=== PATIENT | female | born 1975 | race Caucasian/White ===

== ENCOUNTER 2019-02-20 12:48 | Emergency (ER) | payer OTHER, SELFPAY ==
[2019-02-20 12:49] VITALS: BP 107/90; PULSE 83; RESP 16; TEMP 37.2; O2SAT 100; BMI 24.6
--- NOTE | 2019-02-20 13:23 | ED.VISSUMM ---
- ER Visit Summary Date of Service: 02/20/19 Chief Complaint: Nausea, vomiting and diarrhea History of Present Illness: The patient is a 43 F no significant past medical history. Prior cholecystectomy. Patient states to start feeling poorly about 8 PM last night. By midnight she started having nausea, vomiting and diarrhea x1. No dysuria. Subjective fever and chills. Diffuse body aches. No one else at home is ill. Only crampy abdominal discomfort. Physical Examination: Middle-aged female. Vital signs are stable. She is afebrile. She does not look septic or toxic. HEENT exam unremarkable other than dry mucous membranes. Neck nontender no lymphadenopathy. Lungs clear to auscultation bilaterally. Heart regular rhythm no murmur. Abdomen soft nontender normal bowel sounds no peritoneal signs. No signs of obstruction. No distention. Patient moving all 4 extremities. Neurovascular intact. No edema. Back nontender. Skin normal other than pale. Neurologically she is awake alert with no focal motor deficits. Test Results: None Emergency Department Course and Treatment: Patient has a viral gastroenteritis with dehydration. Treated with IV fluids x2 L and IV Zofran. P.o. fluid challenge. On repeat exam she feels and looks much better. Treatment Plan: Zofran as needed for nausea. Fluids and rest. Increase diet as tolerated. Disposition: Discharge Impression: Acute viral gastroenteritis with dehydration This note was generated with [employer] ([employer]) dictation software. It may contain incorrect words, spelling, and punctuation that were not noted in review of the chart prior to signing ED Disposition - Plan for ED Patient: Referrals: Marcus Pearce III, MD [Primary Care Provider] -
--- NOTE | 2019-02-20 13:25 | ED.DEP ---
ED Disposition - Plan for ED Patient: Disposition: Home or Assisted Living Instructions: GASTROENTERITIS, Viral (6y-Adult), DEHYDRATION (6y-Adult) Prescriptions: Ondansetron [Zofran Odt] 4 mg PO Q8H PRN PRN #10 tab PRN Reason: Nausea Prescription Printed Referrals: Marcus Pearce III, MD [Primary Care Provider] - 3-5 Days if not improving Additional Instructions: Plenty of fluids and rest. Increase diet slowly as tolerated. Zofran as needed for nausea. Follow-up with not improving return if feeling worse.
[2019-02-20] MEDS: Ondansetron 4 MG/2 ML Vial IV (13:39)
[2019-02-20] MEDS: 0.9% Normal Saline 1,000 ML 1000 ML IV ×2 (13:40→14:41)
[2019-02-20] MEDS: Acetaminophen 500 MG Tablet 1000 MG PO (14:57)
[2019-02-20 15:02] VITALS: RESP 18
[2019-02-20 15:31] VITALS: BP 97/57; PULSE 78; RESP 16; O2SAT 100
--- NOTE | 2019-02-20 15:32 | ED.RN ---
IV DC'ED, CATHETER INTACT, SMALL GAUZE DRESSING PLACED. DISCHARGE INSTRUCTIONS GIVEN TO AND REVIEWED WITH PATIENT, PATIENT DENIES QUESTIONS OR CONCERNS AND VOICES UNDERSTANDING OF DISCHARGE INSTRUCTIONS. PT AMBULATES OUT OF ROOM WITHOUT DIFFICULTY.
== END 2019-02-20 15:32 | disposition home or self-care (01) ==
PROVIDERS: Emergency Provider Emergency Medicine; Family Provider Family Medicine; PCP Family Medicine
DX: A08.4 Viral intestinal infection, unspecified (principal); E86.0 Dehydration
CPT/HCPCS: 96361; 96374; 99284; J7030; A4216; J2405

== ENCOUNTER → 2020-04-02 | Outpatient (CLI) | payer OTHER, SELFPAY ==
--- NOTE | 2020-04-02 | BRBX_PTH ---
PATIENT: SANGEETHA PATEL [facility] U#:[id number] AGE/SX: 45/F ROOM: RE04/02/[address]: Dr. Gregor Pearce MD : 1975 BED: DIS: 04/02/2020 SPEC #: [id number] RECD: 04/02/20 15:50 STATUS: CATINA REJaz #: [id number] DUNCAN: 04/02/20 00:[address]: Gregor Pearce DEPT: SURGICAL PATHOLOGY RECD BY: Pedrito Mantilla ENTERED: 04/03/20 07:17 SP TYPE: BREAST BX OTHR DR: Dr. Marcus Pearce III, MD Tissues: Right breast, NOS Procedures: Surgery Specimen Level IV HEADER OPERATION: Right breast biopsy PRE-OP DIAGNOSIS: Abnormal breast ultrasound TISSUE SUBMITTED: Right breast biopsy MICROSCOPIC DIAGNOSIS Right breast, core biopsy: Fragments of benign breast tissue with focal changes suggestive of fibroadenoma. Negative for atypia or malignancy. See comment. CISCO:tatum 04/04/2020 COMMENT Correlation with clinical, radiologic findings and appropriate follow up are necessary. MICROSCOPIC DESCRIPTION Slides are reviewed. GROSS DESCRIPTION Received in fixative is one container labeled with the patient name and designated right breast. The specimen consists of multiple elongated fragments of christopher-yellow fibroadipose tissue that in aggregate measure 1 x 0.3 x 0.1 cm. The entire specimen is submitted in one cassette. / CISCO:tatum 04/03/20 TC:5 CPT: 06745
[2020-04-02 14:51] VITALS: BMI 24.2
== END | disposition home or self-care (01) ==
LOC: LABSPEC 16:47
PROVIDERS: PCP Family Medicine; Visit Provider Surgery
DX: R92.8 Other abnormal and inconclusive findings on diagnostic imaging of breast (principal)
CPT/HCPCS: 88305

== ENCOUNTER 2023-03-27 09:21 | Day surgery (SDC) | payer BC, SELFPAY ==
--- NOTE | 2023-03-24 14:40 | PCM.HP.BLA ---
History and Physical Date of Admission: 03/27/23 HPI: The patient is a 48 year old female presenting for pre-operative visit. She is scheduled for hysteroscopy with endometrial ablation, for AUB on 03/24/23. Procedure discussed along with risks, benefits and complications. Other alternatives discussed for management. Consent form signed? Yes. ? ? PAST MEDICAL HISTORY PAST MEDICAL HISTORY Diagnosis Date ? Abnormal Pap smear of cervix ? ? Cholecystitis ? ? Cholelithiasis ? ? Dysthymic disorder ? ? Depression (non-psychotic) ? Hyperlipidemia 04/14/2012 ? ? PAST SURGICAL HISTORY PAST SURGICAL HISTORY Procedure Laterality Date ? LAPS SURG CHOLECYSTECTOMY W/CHOLANGIOGRAPHY ? 05/16/2009 ? PAST SURGICAL HISTORY OF ? ? ? RIGHT WRIST SURGERY X 2 ? TONSILLECTOMY PRIMARY/SECONDARY <AGE 13 ? ? ? Tonsillectomy ? ? ? CURRENT MEDICATIONS Current Outpatient Medications Medication Sig Dispense Refill ? ascorbic acid/collagen hydr (COLLAGEN SKIN RENEWAL ORAL) Take by mouth. ? ? ? BIOTIN ORAL Take by mouth once daily. ? ? ? docosahexaenoic acid/epa (FISH OIL ORAL) Take by mouth once daily. ? ? ? mv,Ca,min/iron/FA/guarana/caff (ONE-A-DAY WOMEN'S ACTIVE ORAL) Take by mouth. ? ? ? diphenhydramine HCl (BENADRYL ORAL) Take by mouth. ? ? ? acetaminophen (TYLENOL) 325 mg tablet Take 650 mg by mouth every 6 hours as needed. (Patient not taking: Reported on 01/27/2023) ? ? ? No current facility-administered medications for this visit. ? ? ALLERGIES: Penicillins ? PERSONAL HISTORY: SOCIAL HISTORY Social History ? Tobacco Use ? Smoking status: Never ? Smokeless tobacco: Never Vaping Use ? Vaping Use: Never used Substance Use Topics ? Alcohol use: Yes ? ? Comment: wine ? Drug use: No ? FAMILY HISTORY: FAMILY HISTORY FAMILY HISTORY Problem Relation Age of Onset ? Hypertension Mother ? ? Lipids Mother ? ? other (ADDISONS DISEASE) Mother ? ? Ischemic Heart Disease Mother ? ? Lipids Father ? ? Prostate Cancer Father ? ? Thyroid Brother ? ? Also Down's Syndrome ? other (pace maker) Brother ? ? Stroke Brother ? ? Lipids Brother ? ? Cancer Maternal Grandmother ? ? COPD Maternal Grandfather ? ? Breast Cancer Maternal Aunt ? ? ? REVIEW OF SYMPTOMS: GENERAL: denies fevers or chills ENDOCRINOLOGY: has not been on steroids Cardiology : denies palpitations or chest pain Respiratory: denies SOB or cough Hematology: denies history of prolonged bleeding or easy bruising or VTE Allergy: Denies history of personal or family history of allergy to anesthesia ? PHYSICAL EXAMINATION: ? VITALS: Last menstrual period 02/21/2023. ? GENERAL: The patient is well nourished, well hydrated in no acute distress. , The patient is oriented to time, place, and person. NECK: Supple. No lynphadenopathy, normal thyroid, no thyromegaly. LUNGS: Clear to auscultation bilaterally. no wheezes, rhonchi or rales HEART: Regular rate and rhythm, Normal heart sounds, and No murmurs or gallops ? IMPRESSION: menorrhagia ? ? PLAN: The risks/benefits/alternatives and personal involved for the planned hysteroscopy with endometrial ablation were reviewed with the patient. Her questions were answered to her satisfaction and she desires to proceed. Consent was signed. I reviewed with her postop instructions and expectations. ? ? I have reviewed and updated past medical and surgical history, medications and allergies Assessment & Plan Assessment/Plan (1) Menorrhagia:
--- OUTSIDE RECORDS SUMMARY | 2023-03-27 09:44 | XMS RPT_ITS | CCD ---
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 Name Role Phone Chuy Ramos MD Primary Care Provider WINSTON SANDERSON Attending Unavailable CHUY RAMOS Primary Care Unavailable CHUY RAMOS Primary Care Unavailable WINSTON SANDERSON Attending Unavailable WINSTON SANDERSON Referring Unavailable CHUY RAMOS Primary Care Unavailable WINSTON SANDERSON Referring Unavailable CHUY RAMOS Primary Care Unavailable WINSTON SANDERSON Attending Unavailable Allergies Allergy Classification Reported Allergen(s) Allergy Type Date of Onset Reaction(s) Facility (4 sources) Penicillins; Translations: [PENICILLINS] Propensity to adverse reactions 6 Vomiting [facility] Work Phone: (9 sources) Seasonal allergy; Translations: [SEASONAL ALLERGIES] Allergy to substance 0 Other: See Comments [facility] (6 sources) Penicillins Propensity to adverse reactions 6 Vomiting [facility] Work Phone: Medications Completed/Discontinued Medications Medication Drug Class(es) Dates Sig (Normalized) Sig (Original) acetaminophen 325 mg oral tablet (9 sources) take 2 tablets by mouth every six hours as needed acetaminophen (TYLENOL) 325 mg tablet Take 650 mg by mouth every 6 hours as needed. 0 Active Problems Active Problems Problem Classification Problem Date Documented Da te Episodic/Chronic Disorders of lipid metabolism (10 sources) Hyperlipidemia; Translations: [Hyperlipidemia, unspecified] Onset: 07-23-2016 07-23-2016 Chronic Menstrual disorders (2 sources) Menorrhagia; Translations: [Excessive and frequent menstruation with regular cycle] Onset: 03-03-2023 01-27-2023 Chronic Other screening for suspected conditions (not mental disorders or infectious disease) (6 sources) Mammography abnormal; Translations: [Other abnormal and inconclusive findings on diagnostic imaging of breast] Episodic Other upper respiratory disease (9 sources) Allergic rhinitis; Translations: [Allergic rhinitis, unspecified] Onset: 08-19-2008 08-19-2008 Chronic Past or Other Problems Problem Classification Problem Date Documented Date Episodic/Chronic Residual codes; unclassified (9 sources) Abnormal cytology findings; Translations: [LSIL (low grade squamous intraepithelial lesion) on Pap smear] Onset: 03-26-2012 03-11-2021 Episodic Screening and history of mental health and substance abuse codes (9 sources) H/O: depression; Translations: [Personal history of other mental and behavioral disorders] Onset: 08-09-2015 03-11-2021 Episodic Results Test Name Value Interpretation Reference Range Facil ity Vital Signs Date Time Vital Sign Value Performing Clinician Faci lity 01-27-2023 16:06-0500 Body height 153 cm Winston Sanderson MD Work Phone: [facility] 01-27-2023 16:06-0500 Body weight 54.43 kg Winston Sanderson MD Work Phone: [facility] 01-27-2023 16:06-0500 Diastolic blood pressure 68 mm[Hg] Winston Sanderson MD Work Phone: [facility] 01-27-2023 16:06-0500 Systolic blood pressure 104 mm[Hg] Winston Sanderson MD Work Phone: [facility] 11-25-2021 09:17-0400 Body height 153 cm Irene Beltrán PA-C Work Phone: [facility] 11-25-2021 09:17-0400 Body temperature 97.59 [degF] Irene Beltrán PA-C Work Phone: [facility] 11-25-2021 09:17-0400 Body weight 53.52 kg Irene Beltrán PA-C Work Phone: [facility] 11-25-2021 09:17-0400 Diastolic blood pressure 80 mm[Hg] Irene Beltrán PA-C Work Phone: [facility] 11-25-2021 09:17-0400 Heart rate 64 /min Irene Beltrán PA-C Work Phone: [facility] 11-25-2021 09:17-0400 Respiratory rate 16 /min Irene Beltrán PA-C Work Phone: [facility] 11-25-2021 09:17-0400 Systolic blood pressure 102 mm[Hg] Irene Beltrán PA-C Work Phone: [facility] 06-05-2021 14:24-0400 Body height 152.4 cm Winston Sanderson MD Work Phone: [facility] 06-05-2021 14:24-0400 Body weight 53.52 kg Winston Sanderson MD Work Phone: [facility] 06-05-2021 14:24-0400 Diastolic blood pressure 74 mm[Hg] Winston Sanderson MD Work Phone: [facility] 06-05-2021 14:24-0400 Systolic blood pressure 118 mm[Hg] Winston Sanderson MD Work Phone: [facility] Encounters Encounter Date Encounter Type Care Provider Facility Start: 03-24-2023 ambulatory WINSTON SANDERSON [facility] ity:[facility] Start: 03-03-2023 Telephone encounter Winston Sanderson MD Work Phone: OB/Gynecology Procedures Date Procedure Procedure Detail Performing Clinician Start: 11-25-2021 Adult depression scr eening assessment Irene Beltrán PA-C Work Phone: Start: 11-25-2021 Lipid 1996 panel - S bear or Plasma Winston Sanderson MD Work Phone: Start: 06-04-2021 Us breast uni real t alondra with image limited Marco Antonio Cheung APRN.[facility]FFER Work Phone: Start: 04-25-2021 Mammography Us 1 Work Phone: Start: 11-12-2020 Adult depression scr eening assessment Us 1 Work Phone: Plan of Treatment Date Care Activity Detail Author Start: 11-25-2026 Lipid 1996 panel - S bear or Plasma Lipid Screening [facility] Start: 11-25-2026 Lipid panel Lipid Screening [facility] Start: 11-25-2026 LIPID SCREEN LIPID SCREEN [facility] Start: 01-03-2026 Urine microalbumin profile [facility] Start: 02-02-2025 HPV TESTING HPV TESTING [facility] Start: 02-02-2025 PAP TESTING PAP TESTING [facility] Start: 02-02-2025 Screening for malign ant neoplasm of cervix [facility] Start: 11-25-2024 DIABETES SCREEN [facility] Start: 11-25-2024 Diabetes Screening Diabetes Screenin g [facility] Start: 03-24-2024 LIPID SCREEN LIPID SCREEN [facility] Start: 11-25-2022 Adult depression scr eening assessment DEPRESSION SCREENING [facility] Start: 11-25-2022 HEPATITIS C SCREENING HEPATITIS C [facility] Immunizations Immunization Date Immunization Notes Care Provider Fa ayanna 11-09-2020 COVID-19 vaccine (ADILSON) Us 1 Work Phone: [facility] Work Phone: 02-03-2017 influenza, injectabl e, quadrivalent, contains preservative Us 1 Work Phone: [facility] 02-03-2017 influenza virus vaccine, unspecified formulation Winston Sanderson MD Work Phone: [facility] 01-04-2016 tetanus toxoid, redu christine diphtheria toxoid, and acellular pertussis vaccine, adsorbed Us 1 Work Phone: [facility] 12-03-2015 influenza, injectabl e, quadrivalent, contains preservative Us 1 Work Phone: [facility] Work Phone: 01-18-2015 influenza, injectabl e, quadrivalent, contains preservative Us 1 Work Phone: [facility] Work Phone: 06-21-2013 tetanus toxoid, redu christine diphtheria toxoid, and acellular pertussis vaccine, adsorbed Us 1 Work Phone: [facility] 02-02-2013 influenza virus vaccine, unspecified formulation Us 1 Work Phone: [facility] Work Phone: 02-18-2012 influenza virus vaccine, unspecified formulation Us 1 Work Phone: [facility] 02-05-2010 influenza virus vaccine, live, attenuated, for intranasal use Us 1 Work Phone: [facility] 01-12-2009 influenza virus vaccine, unspecified formulation Us 1 Work Phone: [facility] Work Phone: Payers Date Payer Category Payer Unknown [employer] PPO OOS [id number] 2022-Present [phone] [address] [place] [address] PPO [id number] 2022 Unknown [id number] 2020 Private Health Insurance [employer] POS [id number] 2020-Present [phone] [address] [address] [place] [address] POS [id number] 2020 Private Health Insurance [employer] POS [id number] 2020-Present [phone] [address] [address] [place] [address] POS [id number] Social History Date Type Detail Facility Start: 11-25-2021 Tobacco smoking stat us ARIS Never smoked tobacco [facility] Start: 11-12-2020 End: 03-03-2023 Alcohol intake Current drinker of alcohol (finding) [facility] Start: 02-03-2020 History SDOH Alcohol Comment wine [facility] Start: 1975 Sex Assigned At Not on file C [facility] Start: 05-25-2021 End: 11-25-2021 Exposure to SARS-CoV-2 (event) Not sure [facility] Start: 11-25-2021 Tobacco use and exposure Smoke less tobacco non-user [facility] Start: 11-25-2021 End: 01-27-2023 History of Social function [facility] Start: 11-25-2021 End: 01-27-2023 Tobacco use panel [facility] Adult Depression Scr eening Assessment 0 [facility] Clinical Notes 08-23-2015 to 03-24-2023 Telephone Encounter - Kathy Bello RN - 03/04/2023 11:27 AM ESTTelephone Encounter - Malissa Diaz LPN - 03/03/2023 3:40 PM Winston Newton MD - 01/27/2023 4:01 PM EST Note Date & Type Note Facility 03-24-2023 Note HNO ID: [id number] Author: WINSTON SANDERSON MD Service: ? Author Type: Physician Type: Progress Notes Filed: 03/24/2023 14:35 Note Text: Amanda Melgar is a 48 year old female who presents for problem visit for follow up heavy bleeding . HPI: 48-year-old female who is finished childbearing presents today for follow-up heavy menstrual bleeding. Her menses are regular but very heavy. It is a quality of life issue for her. She desires definitive therapy in the form of an endometrial ablation. 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 Comments: Sexual Activity: Yes; Male; hsuband had vasectomy Contraception: Vasectomy PAST MEDICAL HISTORY Diagnosis Date Abnormal Pap smear of cervix Cholecystitis Cholelithiasis Dysthymic disorder Depression (non-psychotic) Hyperlipidemia 04/14/2012 PAST SURGICAL HISTORY Procedure Laterality Date LAPS SURG CHOLECYSTECTOMY W/CHOLANGIOGRAPHY 05/16/2009 PAST SURGICAL HISTORY OF RIGHT WRIST SURGERY X 2 TONSILLECTOMY PRIMARY/SECONDARY Tonsillectomy FAMILY HISTORY Problem Relation Age of Onset Hypertension Mother Lipids Mother other (ADDISONS DISEASE) Mother Ischemic Heart Disease Mother Lipids Father Prostate Cancer Father Thyroid Brother Also Down's Syndrome other (pace maker) Brother Stroke Brother Lipids Brother Cancer Maternal Grandmother COPD Maternal Grandfather Breast Cancer Maternal Aunt Social History Tobacco Use Smoking status: Never Smokeless tobacco: Never Vaping Use Vaping Use: Never used Substance Use Topics Alcohol use: Yes Comment: wine Drug use: No Current Outpatient Medications Medication Sig ascorbic acid/collagen hydr (COLLAGEN SKIN RENEWAL ORAL) Take by mouth. BIOTIN ORAL Take by mouth once daily. docosahexaenoic acid/epa (FISH OIL ORAL) Take by mouth once daily. mv,Ca,min/iron/FA/guarana/caff (ONE-A-DAY WOMEN'S ACTIVE ORAL) Take by mouth. diphenhydramine HCl (BENADRYL ORAL) Take by mouth. acetaminophen (TYLENOL) 325 mg tablet Take 650 mg by mouth every 6 hours as needed. (Patient not taking: Reported on 01/27/2023) No current facility-administered medications for this visit. Allergies As of Date: 03/24/2023 Allergen Noted Reaction PENICILLINS 02/26/2006 Vomiting Fully Assessed 03/24/2023 Allergies and current medication updated:Yes EXAM: BP 106/64 Ht 5' .25 (1.53m) Wt 120 lb (54.4kg) LMP 03/12/2023 BMI 23.25 kg/(m2). GENERAL: pleasant, female in no apparent distress Endometrial biopsy on 03/03/2023 shows proliferative endometrium. Pelvic ultrasound done 03/03/2023 shows 8.7 x 4.8 x 6.0 retroverted uterus. No fibroids or obvious adenomyosis. Overall normal uterine contour and normal ovaries. ASSESSMENT AND PLAN: Menorrhagia Negative workup. Risk benefits and alternatives to hysteroscopy with endometrial ablation were discussed with patient her questions were answered to her satisfaction she desires to proceed she understands contraindication to any future childbearing. Winston Sanderson MD Medical Decision Making: Problems: Low: Stable chronic illness Data: Unique test result(s) reviewed: 2 Risk: Moderate: Moderate risk from testing/treatment Medical Decision Making Level: 3 - Low [facility] 03-04-2023 Miscellaneous Notes Patient wants 03/27/23. Pre op scheduled for 03/24/23. Kathy Bello RN Left message to call office. Next available surgery dates with Dr. Sanderson are 03/27/23 and 04/10/23. Patient will need a pre-operative appointment scheduled documented in this encounter [facility] 03-03-2023 Note HNO ID: [id number] Author: Winston Sanderson MD Service: ? Author Type: Physician Type: Progress Notes Filed: 03/03/2023 11:16 AM Note Text: Amanda is a 47 year old who presents today for an endometrial biopsy for abnormal uterine bleeding. test: negative UNIVERSAL PROTOCOL / SAFETY CHECKLIST Procedure to be Performed: EMB Sign In: A Moment of CARE was completed. Personnel directly involved with the procedure wore the appropriate PPE (Personal Protective Equipment). Patient/Surrogate Stated/Verified: PATIENT VERIFIED(optional for EMERGENT procedures): Patient name, Date of , Relevant allergies, and The intended procedure Time Out Communication: Intended patient and procedure match the source documents. Consent documented and matches the intended procedure. No implant(s) inserted. Sign Out: SIGN OUT (optional for EMERGENT procedures): All specimen containers correctly labeled. All instruments, equipment, possible retained foreign bodies accounted for. Post-procedure follow-up management communicated and Plan of Care Visit completed when applicable. Winston Sanderson M.D. PROCEDURE: EXTERNAL GENITALIA: Normal in appearance without lesions VAGINA: Normal in appearance without lesions BIOPSY: Speculum placed into the vagina with excellent visualization of the cervix. Cervix cleaned with betadine. Anterior lip of cervix grasped with single toothed tenaculum. Uterus sounded to 8 cm. Pipelle inserted into the uterus without difficulty and endometrial biopsy obtained. Specimen labeled and sent to pathology. Procedure Summary: Patient tolerated procedure well. ASSESSMENT: abnormal uterine bleeding PLAN: Specimens labeled and sent to Pathology. Will notify patient of results in 1-2 weeks. Post-procedure instructions reviewed and written material given to the patient. Desires endometrial ablation if US and EMB ok Winston Sanderson MD [facility] 03-03-2023 Note HNO ID: [id number] Author: Taylor Clancy RDMS Service: ? 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 FALL SCREENING: Has the patient had 2 falls in the last year or 1 fall with injury or currently using an Ambulatory Assistive Device (Walker, Cane, Wheelchair, Crutches, etc.)? No PATIENT GENDER DATA: Female. status: : No status: NO. PATIENT RELEVANT IMPLANT DATA REVIEWED: Not Applicable RADIOLOGY DEPARTMENT: Ultrasound PERIPHERAL IV DATA: Not applicable SIGNED BY: Taylor Clancy RDMS March 03, 2023 2:21 PM [facility] 01-28-2023 Note Patient Outreach (IN TMMN) AMANDA PATEL ([id number]) 1975 F Date Time Provider Department 01/28/23 CHUY RAMOS During your visit today, we recorded the following information about you: Allergies As of Date: 01/28/2023 Noted Allergy Reaction PENICILLINS 02/26/2006 11 - Vomiting Comments: CHILDHOOD REACTION SEASONAL ALLERGIES 01/30/2010 14 - Other: See Comments Comments: dust mites, trees Date Reviewed: 01/27/2023 Reviewed by: Winston Sanderson MD - Fully Assessed Visit Diagnosis:Encounter for screening mammogram for breast cancer [Z12.31] Order(s):[facility] [[id number]] Order #: [id number] FUTURE Prescriptions as of 02/02/2023 - ascorbic acid/collagen hydr (COLLAGEN SKIN RENEWAL ORAL) Take by mouth. - BIOTIN ORAL Take by mouth once daily. - docosahexaenoic acid/epa (FISH OIL ORAL) Take by mouth once daily. - mv,Ca,min/iron/FA/guarana/caff (ONE-A-DAY WOMEN'S ACTIVE ORAL) Take by mouth. - diphenhydramine HCl (BENADRYL ORAL) Take by mouth. - acetaminophen (TYLENOL) 325 mg tablet Take 650 mg by mouth every 6 hours as needed. Problem List As Of Date 01/28/2023 Noted Resolved ALLERGIC RHINITIS NOS [J30.9] 08/19/2008 Choledocholithiasis with chronic cholecystitis *05/11/2009 03/03/2013 Generalized pruritus [L29.9] 02/18/2012 03/03/2013 LSIL (low grade squamous intraepithelial lesion*03/26/2012 Advanced maternal age (AMA) in [IMO00*11/30/2012 08/18/2013 with uncertain dates [Z34.90] 11/30/2012 12/24/2012 History of shoulder dystocia in prior *11/30/2012 08/18/2013 Family history of Down syndrome [Z82.79] 11/30/2012 08/18/2013 Supervision of other normal [Z34.80] 12/24/2012 08/18/2013 Multigravida of advanced maternal age in first *08/09/2015 04/28/2016 History of shoulder dystocia in prior *08/09/2015 04/28/2016 History of depression [Z86.59] 08/09/2015 Supervision of other high risk pregnancies, fir*08/23/2015 04/28/2016 Hyperlipidemia LDL goal <130 [E78.5] 07/23/2016 Well adult exam [Z00.00] 11/25/2021 Encounter Status:Closed 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 Author Type: Physician Type: Progress Notes Filed: 01/27/2023 4:26 PM Note Text: Amanda is a 47 year old who presents for an annual gynecologic exam with complaints, heavy menses . C/o fatigue especially around menses. Sleeps 7-8 hours. Feels rested when she wakes up then gets tired easily. Menses: cycles every 27-29 days and 5-7 days of flow. 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: Sexual Activity: Yes; Male; hsuband had vasectomy Contraception: Vasectomy PAST MEDICAL HISTORY Diagnosis Date Abnormal Pap smear of cervix Cholecystitis Cholelithiasis Dysthymic disorder Depression (non-psychotic) Hyperlipidemia 04/14/2012 PAST SURGICAL HISTORY Procedure Laterality Date LAPS SURG CHOLECYSTECTOMY W/CHOLANGIOGRAPHY 05/16/2009 PAST SURGICAL HISTORY OF RIGHT WRIST SURGERY X 2 TONSILLECTOMY PRIMARY/SECONDARY Tonsillectomy FAMILY HISTORY Problem Relation Age of Onset Hypertension Mother Lipids Mother other (ADDISONS DISEASE) Mother Ischemic Heart Disease Mother Lipids Father Prostate Cancer Father Thyroid Brother Also Down's Syndrome other (pace maker) Brother Stroke Brother Lipids Brother Cancer Maternal Grandmother COPD Maternal Grandfather Breast Cancer Maternal Aunt SOCIAL HISTORY Social History Tobacco Use Smoking status: Never Smokeless tobacco: Never Vaping Use Vaping Use: Never used Substance Use Topics Alcohol use: Yes Comment: wine Drug use: No REVIEW OF SYSTEMS Abdomen: No abdominal pain, nausea, vomiting, diarrhea, or constipation. No bloating, early satiety, indigestion, or increased flatulence. Bladder: No dysuria, gross hematuria, urinary frequency, urinary urgency, or incontinence. Breast: No breast lumps, nipple d/c, overlying skin changes, redness or skin retraction. Allergies and current medication updated:Yes EXAM: BP 104/68 Ht 5' .25 (1.53m) Wt 120 lb (54.4kg) LMP 01/01/2023 BMI 23.25 kg/(m2). GENERAL: pleasant, female in no apparent distress HEENT: Normocephalic, atraumatic, mucus membranes moist, and no lesions NECK: Supple, full range of motion, no adenopathy, and thyroid normal DERMATOLOGY: Normal, without lesions, non-icteric, and non-hirsute BREAST: soft, non-tender, symmetric, no dominant mass, normal nipple-areolar complex, no lymphadenopathy, and no nipple discharge CHEST: Normal inspiratory effort and Regular rate and rhythm ABDOMEN: soft, non-tender, and no masses PELVIC: external genitalia normal, normal Bartholin's glands, urethra, Bee's glands, no vulvar lesions, no cervical lesions, good vaginal support, physiologic discharge present, normal appearing perineal body and perianal region BIMANUAL: uterus normal size, shape and consistency, no adnexal masses, and non-tender RECTOVAGINAL: deferred. NEURO: alert and oriented x3,exam grossly non-focal EXTREMITIES: normal ASSESSMENT/PLAN: 1) Health maintenance: Pap/HPV up to date. Mammogram up to date . 2) Contraception: vasectomy. Contraceptive options reviewed and information provided. 3) STD screening: Declined STD check. 4) Follow up one year or sooner as needed heavy menses- p tiffany US and EMB Winston Sanderson MD [facility] 01-27-2023 History of Presen t illness Narrative Amanda is a 47 year old who presents for an annual gynecologic exam with complaints, heavy menses . C/o fatigue especially around menses. Sleeps 7-8 hours. Feels rested when she wakes up then gets tired easily. Menses: cycles every 27-29 days and 5-7 days of flow. 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: Sexual Activity: Yes; Male; hsuband had vasectomy Contraception: Vasectomy PAST MEDICAL HISTORY Diagnosis Date Abnormal Pap smear of cervix Cholecystitis Cholelithiasis Dysthymic disorder Depression (non-psychotic) Hyperlipidemia 04/14/2012 PAST SURGICAL HISTORY Procedure Laterality Date LAPS SURG CHOLECYSTECTOMY W/CHOLANGIOGRAPHY 05/16/2009 PAST SURGICAL HISTORY OF RIGHT WRIST SURGERY X 2 TONSILLECTOMY PRIMARY/SECONDARY <AGE 13 Tonsillectomy FAMILY HISTORY Problem Relation Age of Onset Hypertension Mother Lipids Mother other (ADDISONS DISEASE) Mother Ischemic Heart Disease Mother Lipids Father Prostate Cancer Father Thyroid Brother Also Down's Syndrome other (pace maker) Brother Stroke Brother Lipids Brother Cancer Maternal Grandmother COPD Maternal Grandfather Breast Cancer Maternal Aunt SOCIAL HISTORY Social History Tobacco Use Smoking status: Never Smokeless tobacco: Never Vaping Use Vaping Use: Never used Substance Use Topics Alcohol use: Yes Comment: wine Drug use: No REVIEW OF SYSTEMS Abdomen: No abdominal pain, nausea, vomiting, diarrhea, or constipation. No bloating, early satiety, indigestion, or increased flatulence. Bladder: No dysuria, gross hematuria, urinary frequency, urinary urgency, or incontinence. Breast: No breast lumps, nipple d/c, overlying skin changes, redness or skin retraction. Allergies and current medication updated:Yes EXAM: BP 104/68 Ht 5' .25 (1.53m) Wt 120 lb (54.4kg) LMP 01/01/2023 BMI 23.25 kg/(m^2). GENERAL: pleasant, female in no apparent distress HEENT: Normocephalic, atraumatic, mucus membranes moist, and no lesions NECK: Supple, full range of motion, no adenopathy, and thyroid normal DERMATOLOGY: Normal, without lesions, non-icteric, and non-hirsute BREAST: soft, non-tender, symmetric, no dominant mass, normal nipple-areolar complex, no lymphadenopathy, and no nipple discharge CHEST: Normal inspiratory effort and Regular rate and rhythm ABDOMEN: soft, non-tender, and no masses PELVIC: external genitalia normal, normal Bartholin's glands, urethra, Bee's glands, no vulvar lesions, no cervical lesions, good vaginal support, physiologic discharge present, normal appearing perineal body and perianal region BIMANUAL: uterus normal size, shape and consistency, no adnexal masses, and non-tender RECTOVAGINAL: deferred. NEURO: alert and oriented x3,exam grossly non-focal EXTREMITIES: normal ASSESSMENT/PLAN: 1) Health maintenance: Pap/HPV up to date. Mammogram up to date . 2) Contraception: vasectomy. Contraceptive options reviewed and information provided. 3) STD screening: Declined STD check. 4) Follow up one year or sooner as needed heavy menses- p elvic US and EMB Winston Sanderson MD documented in this encounter [facility] 06-18-2022 Note Patient Outreach (IN [facility]MM[facility]) AMANDA PATEL ([id number]) 1975 F Date Time Provider Department 06/18/22 CHUY RAMOS During your visit today, we recorded the following information about you: Allergies As of Date: 06/18/2022 Noted Allergy Reaction PENICILLINS 02/26/2006 11 - Vomiting Comments: CHILDHOOD REACTION SEASONAL ALLERGIES 01/30/2010 14 - Other: See Comments Comments: dust mites, trees Date Reviewed: 11/25/2021 Reviewed by: Dia Rangel LPN - Fully Assessed Visit Diagnosis:Encounter for screening mammogram for breast cancer [Z12.31] Order(s):[facility] [[id number]] Order #: [id number] FUTURE Prescriptions as of 06/23/2022 - BIOTIN ORAL Take by mouth once daily. - docosahexaenoic acid/epa (FISH OIL ORAL) Take by mouth once daily. - mv,Ca,min/iron/FA/guarana/caff (ONE-A-DAY WOMEN'S ACTIVE ORAL) Take by mouth. - diphenhydramine HCl (BENADRYL ORAL) Take by mouth. - acetaminophen (TYLENOL) 325 mg tablet Take 650 mg by mouth every 6 hours as needed. Problem List As Of Date 06/18/2022 Noted Resolved ALLERGIC RHINITIS NOS [J30.9] 08/19/2008 Choledocholithiasis with chronic cholecystitis *05/11/2009 03/03/2013 Generalized pruritus [L29.9] 02/18/2012 03/03/2013 LSIL (low grade squamous intraepithelial lesion*03/26/2012 Advanced maternal age (AMA) in [IMO00*11/30/2012 08/18/2013 with uncertain dates [Z34.90] 11/30/2012 12/24/2012 History of shoulder dystocia in prior *11/30/2012 08/18/2013 Family history of Down syndrome [Z82.79] 11/30/2012 08/18/2013 Supervision of other normal [Z34.80] 12/24/2012 08/18/2013 Multigravida of advanced maternal age in first *08/09/2015 04/28/2016 History of shoulder dystocia in prior *08/09/2015 04/28/2016 History of depression [Z86.59] 08/09/2015 Supervision of other high risk pregnancies, fir*08/23/2015 04/28/2016 Hyperlipidemia LDL goal <130 [E78.5] 07/23/2016 Well adult exam [Z00.00] 11/25/2021 Encounter Status:Closed by [employer], PRODUSER on 06/23/22 [facility] 11-26-2021 Miscellaneous Notes Patient notified of results and provider's instructions. Patient verbalizes understanding. Dia Rangel LPN Let patient know that cholesterol has improved. LDL down to 167 from 181 however this is still high. Goal would be under 130. I would be okay to give her 1 more year and to work on diet. If next year is still high, may consider medications. Rest of her labs were all normal. documented in this encounter [facility] 11-25-2021 Instructions Irene Beltrán PA-C - 11/25/2021 9:36 AM EDT Consider colon cancer screening and let us know if you would like to pursue. documented in this encounter [facility] 11-25-2021 History of Presen t illness Narrative Chief Complaint Patient presents with: Physical HPI Amanda Melgar is a 46 year old female who presents here today for physical. Patient with hx of hyperlipidemia, but otherwise healthy. No concerns today Past medical history, appointments, medications, allergies reviewed. Previous Medical History PAST MEDICAL HISTORY Diagnosis Date Abnormal Pap smear of cervix Cholecystitis Cholelithiasis Dysthymic disorder Depression (non-psychotic) Hyperlipidemia 04/14/2012 Previous Surgical History PAST SURGICAL HISTORY Procedure Laterality Date LAPS SURG CHOLECYSTECTOMY W/CHOLANGIOGRAPHY 05/16/2009 PAST SURGICAL HISTORY OF RIGHT WRIST SURGERY X 2 TONSILLECTOMY PRIMARY/SECONDARY <AGE 13 Tonsillectomy Family History FAMILY HISTORY Problem Relation Age of Onset Hypertension Mother Lipids Mother other (ADDISONS DISEASE) Mother Lipids Father Prostate Cancer Father Thyroid Brother Also Down's Syndrome other (pace maker) Brother Lipids Brother Cancer Maternal Grandmother COPD Maternal Grandfather Breast Cancer Maternal Aunt Patient Allergies ALLERGIES Allergen Reactions Penicillins Vomiting CHILDHOOD REACTION Seasonal Allergies Other: See Comments dust mites, trees Current Medications Current Outpatient Medications on File Prior to Visit Medication Sig BIOTIN ORAL Take by mouth once daily. docosahexaenoic acid/epa (FISH OIL ORAL) Take by mouth once daily. mv,Ca,min/iron/FA/guarana/caff (ONE-A-DAY WOMEN'S ACTIVE ORAL) Take by mouth. diphenhydramine HCl (BENADRYL ORAL) Take by mouth. acetaminophen (TYLENOL) 325 mg tablet Take 650 mg by mouth every 6 hours as needed. cetirizine (ZYRTEC) 10 mg tablet Take 10 mg by mouth twice daily. (Patient not taking: Reported on 11/12/2020 ) [id number] ( VITAMIN) Tab Take 1 tablet by mouth. (Patient not taking: Reported on 11/12/2020 ) No current facility-administered medications on file prior to visit. Social History Social History Tobacco Use Smoking status: Never Smokeless tobacco: Never Vaping Use Vaping Use: Never used Substance Use Topics Alcohol use: Yes Comment: wine Drug use: No Review of Symptoms REVIEW OF SYSTEMS GENERAL: No weight loss, malaise or fevers HEENT: No changes in hearing or vision, no nose bleeds or other nasal problems NECK: Negative for lumps, goiter, pain and significant neck swelling RESPIRATORY: Negative for cough, hemoptysis, wheezing, COPD, dyspnea or shortness of breath CARDIOVASCULAR: Negative for chest pain, leg swelling, hypertension, CHF or palpitations GI: Negative for abdominal discomfort, blood in stools or black stools, change in bowel habit, heart burn, nausea, vomiting : No history of dysuria, frequency or incontinence MUSCULOSKELETAL: Negative for joint pain or swelling, back pain or muscle pain SKIN: Negative for lesions, rash, and itching PSYCH: Negative for sleep disturbance, mood disorder and recent psychosocial stressors HEMATOLOGY/LYMPHOLOGY: Negative for prolonged bleeding, bruising easily or swollen nodes ENDOCRINE: Negative for cold or heat intolerance, polyuria, polydipsia and goiter NEURO: No history of headaches, syncope, paralysis, seizures or tremors EXAM: BP 102/80 (BP Site: Left Arm, BP Position: Sitting, BP Cuff Size: Regular Adult) Pulse 64 Temp 36.4 C (97.6 F) Resp 16 Ht 153 cm (5' 0.24 ) Wt 53.5 kg (118 lb) LMP 11/21/2021 (Approximate) BMI 22.87 kg/m Last 5 Encounter Wt Readings: Date: Wt: 11/25/2021 53.5 kg (118 lb) 06/05/2021 53.5 kg (118 lb) 11/12/2020 53.1 kg (117 lb) 02/03/2020 58.1 kg (128 lb) 02/03/2017 52.2 kg (115 lb) General Appearance: Well appearing, alert, in no acute distress, well-hydrated, well nourished.. Skin: Skin color, texture, turgor normal, no suspicious rashes or lesions. Head: Normocephalic, no masses, lesions, tenderness or abnormalities. Eyes: Anicteric sclera. Pupils are equally round and reactive to light. Extraocular movements are intact. . Ears: External ears normal, canals clear. Neck: Supple, no adenopathy; thyroid symmetric, normal size, no bruits. Lungs: Lungs clear to auscultation. No wheezing, rhonchi, rales.. Heart: RRR without murmur, gallop, or rubs. No ectopy. Abdomen: Normal abdominal exam, Abdomen soft, non-tender. Bowel sounds normal. No masses, organomegaly. Extremities: No deformities, edema, skin discoloration, clubbing or cyanosis. Good capillary refill. . Peripheral Pulses: Normal. Neurologic: Gait normal. Reflexes normal and symmetric. Sensation grossly intact.. Health Maintenance List HEPATITIS B(1 of 3 - 3-dose series) Never done HEPATITIS C SCREENING Never done COVID-19 VACCINE(2 - Booster for Adilson series) due on 01/04/2021 COLORECTAL CANCER SCREENING Never done DEPRESSION SCREENING due on 11/12/2021 INFLUENZA(1) due on 11/14/2021 DIABETES SCREEN due on 03/24/2022 MAMMOGRAM due on 04/25/2022 LIPID SCREEN due on 03/24/2024 PAP TESTING due on 02/02/2025 HPV TESTING due on 02/02/2025 DTAP,TDAP,TD(3 - Td or Tdap) due on 01/03/2026 HIV SCREENING Completed Data reviewed ASSESSMENT/PLAN: 1. Well adult exam - ICD9: V70.0, ICD10: Z00.00 (primary diagnosis) - Counseled on healthy diet and regular exercise - Calcium intake with supplements or by diet of 1000 mg/day for under 50, 7800-7182 mg/day for 50+ - Colorectal cancer screening recommended - screening declined but will consider - COMP METABOLIC PANEL 2. Hyperlipidemia LDL goal <130 - ICD9: 272.4, ICD10: E78.5 - to be determined upon return of lab results - Encouraged following a low carbohydrate, healthy oil intake diet. - LIPID PANEL, NONFASTING - COMP METABOLIC PANEL 3. Screening for diabetes mellitus - ICD9: V77.1, ICD10: Z13.1 - COMP METABOLIC PANEL - HGB A1C Irene Beltrán PA-C documented in this encounter [facility] 06-06-2021 Miscellaneous Notes Pt called and is notified of providers results and instructions. Pt voices understanding. Heather Watt RN Can you please call the patient and let her know that I reviewed her mammogram and ultrasound results. Mammogram showed no evidence of malignancy, right breast ultrasound showed a 6 mm cyst consistent with a simple cyst which is benign. They recommend following back up in 1 year for annual screening. Please let me know if the patient has any questions. Thank you. Loida Hester APRN.LOOM DOFFER documented in this encounter [facility] 06-05-2021 History of Presen t illness Narrative Amanda is a 46 year old who presents for an annual gynecologic exam with complaints, heavier menses. Menses: cycles every 28-30 days and 5-6 days of flow. 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 History Comments: Sexual Activity: Yes; Male; hsuband had vasectomy Contraception: Vasectomy PAST MEDICAL HISTORY Diagnosis Date Abnormal Pap smear of cervix Cholecystitis Cholelithiasis Dysthymic disorder Depression (non-psychotic) Hyperlipidemia 04/14/2012 PAST SURGICAL HISTORY Procedure Laterality Date LAP CHOLECYSTECT/CHOLANGIOGRAPHY 05/16/2009 PAST SURGICAL HISTORY OF RIGHT WRIST SURGERY X 2 REMOVAL OF TONSILS,<12 Y/O Tonsillectomy FAMILY HISTORY Problem Relation Age of Onset Hypertension Mother Lipids Mother other (ADDISONS DISEASE) Mother Lipids Father Prostate Cancer Father Cancer Maternal Grandmother COPD Maternal Grandfather Breast Cancer Maternal Aunt Thyroid Brother Also Down's Syndrome Lipids Brother SOCIAL HISTORY Social History Tobacco Use Smoking status: Never Smoker Smokeless tobacco: Never Used Vaping Use Vaping Use: Never used Substance Use Topics Alcohol use: Yes Comment: wine Drug use: No REVIEW OF SYSTEMS Abdomen: No abdominal pain, nausea, vomiting, diarrhea, or constipation. No bloating, early satiety, indigestion, or increased flatulence. Bladder: No dysuria, gross hematuria, urinary frequency, urinary urgency, or incontinence. Breast: No breast lumps, nipple d/c, overlying skin changes, redness or skin retraction. Allergies and current medication updated:Yes EXAM: LMP 11/06/2020 GENERAL: pleasant, female in no apparent distress HEENT: Normocephalic, atraumatic, mucus membranes moist and no lesions NECK: Supple, full range of motion, no adenopathy and thyroid normal DERMATOLOGY: Normal, without lesions, non-icteric and non-hirsute BREAST: soft, non-tender, symmetric, no dominant mass, normal nipple-areolar complex, no lymphadenopathy and no nipple discharge CHEST: Normal inspiratory effort ABDOMEN: soft, non-tender and no masses PELVIC: external genitalia normal, normal Bartholin's glands, urethra, Bee's glands, no vulvar lesions, no cervical lesions, good vaginal support, physiologic discharge present, normal appearing perineal body and perianal region BIMANUAL: uterus normal size, shape and consistency, no adnexal masses and non-tender RECTOVAGINAL: deferred. NEURO: alert and oriented x3,exam grossly non-focal EXTREMITIES: normal ASSESSMENT/PLAN: 1) Health maintenance: Pap/HPV up to date. Mammogram up to date . 2) Contraception: vasectomy. Contraceptive options reviewed and information provided. 3) STD screening: Declined STD check. 4) Follow up one year or sooner as needed Winston Sanderson MD documented in this encounter [facility] documented as of this encounter (statuses as of 06/05/2021) [facility] History of Past illness Narrative* Problem Noted Date Resolved Date Supervision of other high risk pregnancies, firs t trimester 08/23/2015 04/28/2016 Multigravida of advanced maternal age in first t rimester 08/09/2015 04/28/2016 Overview: 08/09/2015Patient is 40 years old. Advanced Maternal age discussed. Pt refused handouts on Genetic Amniocentesis and [facility] handout on Early Screening In given and discussed. Level II Ultrasound and Dr. Moses's services discussed. Patient considering nuchal and NIPT. TKRN History of shoulder dystocia in prior 08/09/2015 04/28/2016 Overview: 08/09/2015 Patient has a history of moderate shoulder dystocia with a previous TKRN Supervision of other normal 12/24/2012 08/18/2013 Advanced maternal age (AMA) in 013 08/18/2013 Overview: 11/30/2012Patient is 37 years old. Advanced Maternal age discussed. Pt refused handouts on Genetic Amniocentesis and [facility] handout on Quad Marker Screen and Early Screening In given and discussed. Level II Ultrasound and Dr. Moses's services discussed. TKRN with uncertain dates 11/30/2012 1 Overview: 11/30/2012 Patient states her last menstrual period was cloth booker and shorter than normal. An ultrasound was ordered for uncertain dates by Dr. Sanderson. TKRN History of shoulder dystocia in prior , currently 11/30/2012 08/18/2013 Overview: 11/30/2012 Patient has a history of moderate shoulder dystocia with her last . She states that she was told by the analysis or research safety inspector the delivered [facility] first child at [facility] that we might have to break the baby's shoulder in order to deliver him. Patient signed a release of records form to obtain her delivery records from her [facility] delivery at the [facility]. [facility] delivery records from her second child in 2006 obtained and sent to Dr. Winston Sanderson's office for review. TKRN Family history of Down syndrome 11/30/2012 08/18/2013 Overview: 11/30/2012Pt's brother has Down's Syndrome. TKRN Generalized pruritus 02/18/2012 03/03/2013 Choledocholithiasis with chronic cholecystitis 0 05/11/2009 03/03/2013 documented as of this encounter (statuses as of 06/05/2021) [facility] History of Past illness Narrative* Problem Noted Date Resolved Date Supervision of other high risk pregnancies, firs t trimester 08/23/2015 04/28/2016 Multigravida of advanced maternal age in first t rimester 08/09/2015 04/28/2016 Overview: 08/09/2015Patient is 40 years old. Advanced Maternal age discussed. Pt refused handouts on Genetic Amniocentesis and [facility] handout on Early Screening In given and discussed. Level II Ultrasound and Dr. Moses's services discussed. Patient considering nuchal and NIPT. TKRN History of shoulder dystocia in prior 08/09/2015 04/28/2016 Overview: 08/09/2015 Patient has a history of moderate shoulder dystocia with a previous TKRN Supervision of other normal 12/24/2012 08/18/2013 Advanced maternal age (AMA) in 013 08/18/2013 Overview: 11/30/2012Patient is 37 years old. Advanced Maternal age discussed. Pt refused handouts on Genetic Amniocentesis and [facility] handout on Quad Marker Screen and Early Screening In given and discussed. Level II Ultrasound and Dr. Moses's services discussed. TKRN with uncertain dates 11/30/2012 1 Overview: 11/30/2012 Patient states her last menstrual period was cloth booker and shorter than normal. An ultrasound was ordered for uncertain dates by Dr. Sanderson. TKRN History of shoulder dystocia in prior , currently 11/30/2012 08/18/2013 Overview: 11/30/2012 Patient has a history of moderate shoulder dystocia with her last . She states that she was told by the analysis or research safety inspector the delivered her first child at the [facility] that we might have to break the baby's shoulder in order to deliver him. Patient signed a release of records form to obtain her delivery records from [facility] delivery [facility] the [facility]. [facility] delivery records from her second child in 2006 obtained and sent to Dr. Winston Sanderson's office for review. TKRN Family history of Down syndrome 11/30/2012 08/18/2013 Overview: 11/30/2012Pt's brother has Down's Syndrome. TKRN Generalized pruritus 02/18/2012 03/03/2013 Choledocholithiasis with chronic cholecystitis 0 05/11/2009 03/03/2013 documented as of this encounter (statuses as of 06/06/2021) [facility] History of Past illness Narrative* Problem Noted Date Resolved Date Supervision of other high risk pregnancies, firs t trimester 08/23/2015 04/28/2016 Multigravida of advanced maternal age in first t rimester 08/09/2015 04/28/2016 Overview: 08/09/2015Patient is 40 years old. Advanced Maternal age discussed. Pt refused handouts on Genetic Amniocentesis and [facility] handout on Early Screening In given and discussed. Level II Ultrasound and Dr. Moses's services discussed. Patient considering nuchal and NIPT. TKRN History of shoulder dystocia in prior 08/09/2015 04/28/2016 Overview: 08/09/2015 Patient has a history of moderate shoulder dystocia with a previous TKRN Supervision of other normal 12/24/2012 08/18/2013 Advanced maternal age (AMA) in 013 08/18/2013 Overview: 11/30/2012Patient is 37 years old. Advanced Maternal age discussed. Pt refused handouts on Genetic Amniocentesis and [facility] handout on Quad Marker Screen and Early Screening In given and discussed. Level II Ultrasound and Dr. Moses's services discussed. TKRN with uncertain dates 11/30/2012 1 Overview: 11/30/2012 Patient states her last menstrual period was cloth booker and shorter than normal. An ultrasound was ordered for uncertain dates by Dr. Sanderson. TKRN History of shoulder dystocia in prior , currently 11/30/2012 08/18/2013 Overview: 11/30/2012 Patient has a history of moderate shoulder dystocia with her last . She states that she was told by the analysis or research safety inspector the delivered her first child at the [facility] that we might have to break the baby's shoulder in order to deliver him. Patient signed a release of records form to obtain her delivery records from [facility] delivery [facility]. [facility] delivery records from her second child in 2006 obtained and sent to Dr. Winston Sanderson's office for review. TKRN Family history of Down syndrome 11/30/2012 08/18/2013 Overview: 11/30/2012Pt's brother has Down's Syndrome. TKRN Generalized pruritus 02/18/2012 03/03/2013 Choledocholithiasis with chronic cholecystitis 0 05/11/2009 03/03/2013 documented as of this encounter (statuses as of 11/25/2021) [facility] History of Past illness Narrative* Problem Noted Date Resolved Date Supervision of other high risk pregnancies, firs t trimester 08/23/2015 04/28/2016 Multigravida of advanced maternal age in first t rimester 08/09/2015 04/28/2016 Overview: 08/09/2015Patient is 40 years old. Advanced Maternal age discussed. Pt refused handouts on Genetic Amniocentesis and [facility] handout on Early Screening In given and discussed. Level II Ultrasound and Dr. Moses's services discussed. Patient considering nuchal and NIPT. TKRN History of shoulder dystocia in prior 08/09/2015 04/28/2016 Overview: 08/09/2015 Patient has a history of moderate shoulder dystocia with a previous TKRN Supervision of other normal 12/24/2012 08/18/2013 Advanced maternal age (AMA) in 013 08/18/2013 Overview: 11/30/2012Patient is 37 years old. Advanced Maternal age discussed. Pt refused handouts on Genetic Amniocentesis and [facility] handout on Quad Marker Screen and Early Screening In given and discussed. Level II Ultrasound and Dr. Moses's services discussed. TKRN with uncertain dates 11/30/2012 1 Overview: 11/30/2012 Patient states her last menstrual period was cloth booker and shorter than normal. An ultrasound was ordered for uncertain dates by Dr. Sanderson. TKRN History of shoulder dystocia in prior , currently 11/30/2012 08/18/2013 Overview: 11/30/2012 Patient has a history of moderate shoulder dystocia with her last . She states that she was told by the analysis or research safety inspector the delivered her first child at the [facility] that we might have to break the baby's shoulder in order to deliver him. Patient signed a release of records form to obtain her delivery records from her [facility] delivery [facility]. [facility] delivery records from her second child in 2006 obtained and sent to Dr. Winston Sanderson's office for review. TKRN Family history of Down syndrome 11/30/2012 08/18/2013 Overview: 11/30/2012Pt's brother has Down's Syndrome. TKRN Generalized pruritus 02/18/2012 03/03/2013 Choledocholithiasis with chronic cholecystitis 0 05/11/2009 03/03/2013 documented as of this encounter (statuses as of 11/26/2021) [facility] History of Past illness Narrative* Problem Noted Date Resolved Date Supervision of other high risk pregnancies, firs t trimester 08/23/2015 04/28/2016 Multigravida of advanced maternal age in first t rimester 08/09/2015 04/28/2016 Overview: 08/09/2015Patient is 40 years old. Advanced Maternal age discussed. Pt refused handouts on Genetic Amniocentesis and [facility] handout on Early Screening In given and discussed. Level II Ultrasound and Dr. Moses's services discussed. Patient considering nuchal and NIPT. TKRN History of shoulder dystocia in prior 08/09/2015 04/28/2016 Overview: 08/09/2015 Patient has a history of moderate shoulder dystocia with a previous TKRN Supervision of other normal 12/24/2012 08/18/2013 Advanced maternal age (AMA) in 013 08/18/2013 Overview: 11/30/2012Patient is 37 years old. Advanced Maternal age discussed. Pt refused handouts on Genetic Amniocentesis and [facility] handout on Quad Marker Screen and Early Screening In given and discussed. Level II Ultrasound and Dr. Moses's services discussed. TKRN with uncertain dates 11/30/2012 1 Overview: 11/30/2012 Patient states her last menstrual period was cloth booker and shorter than normal. An ultrasound was ordered for uncertain dates by Dr. Sanderson. TKRN History of shoulder dystocia in prior , currently 11/30/2012 08/18/2013 Overview: 11/30/2012 Patient has a history of moderate shoulder dystocia with her last . She states that she was told by the analysis or research safety inspector the delivered her first child at the [facility] that we might have to break the baby's shoulder in order to deliver him. Patient signed a release of records form to obtain her delivery records from [facility] delivery [facility]. [facility] delivery records from her second child in 2006 obtained and sent to Dr. Winston Sanderson's office for review. TKRN Family history of Down syndrome 11/30/2012 08/18/2013 Overview: 11/30/2012Pt's brother has Down's Syndrome. TKRN Generalized pruritus 02/18/2012 03/03/2013 Choledocholithiasis with chronic cholecystitis 0 05/11/2009 03/03/2013 documented as of this encounter (statuses as of 06/23/2022) [facility] History of Past illness Narrative* Problem Noted Date Diagnosed Date Resolved Date Supervision of other high ri pregnancies, first trimester 08/23/2015 04/28/2016 Multigravida of advanced mat ernal age in first trimester 08/09/2015 04/28/2016 Overview: 08/09/2015Patient is 40 years old. Advanced Maternal age discussed. Pt refused handouts on Genetic Amniocentesis and [facility]. [facility] handout on Early Screening In given and discussed. Level II Ultrasound and Dr. Moses's services discussed. Patient considering nuchal and NIPT. 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 Advanced Maternal age discussed. Pt refused handouts on Genetic Amniocentesis and [facility]. [facility] handout on Quad Marker Screen and Early Screening In given and discussed. Level II Ultrasound and Dr. Moses's services discussed. TKRN with uncertain dates 11/30/2012 12/24/2012 Overview: 11/30/2012 Patient states her last menstrual period was cloth booker and shorter than normal. An ultrasound was ordered for uncertain dates by Dr. Sanderson. TKRN History of shoulder dystocia in prior , currently 11/30/2012 08/18/2013 Overview: 11/30/2012 Patient has a history of moderate shoulder dystocia with her last . She states that she was told by the analysis or research safety inspector the delivered [facility] child [facility] that we might have to break the baby's shoulder in order to deliver him. Patient signed a release of records form to obtain her delivery records from her first delivery at the [facility]. [facility] delivery records from her second child in 2006 obtained and sent to Dr. Winston Sanderson's office for review. TKRN Family history of Down syndrome 11/30/2012 08/18/2013 Overview: 11/30/2012Pt's brother has Down's Syndrome. TKRN Generalized pruritus 02/18/2012 013 Choledocholithiasis with chr onic cholecystitis 05/11/2009 03/03/2013 documented as of this encounter (statuses as of 01/28/2023) [facility] History of Past illness Narrative* Problem Noted Date Diagnosed Date Resolved Date Supervision of other high ri [place] pregnancies, first trimester 08/23/2015 04/28/2016 Multigravida of advanced mat ernal age in first trimester 08/09/2015 04/28/2016 Overview: 08/09/2015Patient is 40 years old. Advanced Maternal age discussed. Pt refused handouts on Genetic Amniocentesis and [facility] handout on Early Screening In given and discussed. Level II Ultrasound and Dr. Moses's services discussed. Patient considering nuchal and NIPT. 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 Advanced Maternal age discussed. Pt refused handouts on Genetic Amniocentesis and [facility]. [facility] handout on Quad Marker Screen and Early Screening In given and discussed. Level II Ultrasound and Dr. Moses's services discussed. TKRN with uncertain dates 11/30/2012 12/24/2012 Overview: 11/30/2012 Patient states her last menstrual period was cloth booker and shorter than normal. An ultrasound was ordered for uncertain dates by Dr. Sanderson. TKRN History of shoulder dystocia in prior , currently 11/30/2012 08/18/2013 Overview: 11/30/2012 Patient has a history of moderate shoulder dystocia with her last . She states that she was told by the analysis or research safety inspector the delivered her first child at the [facility] that we might have to break the baby's shoulder in order to deliver him. Patient signed a release of records form to obtain her delivery records from her first delivery at the [facility]. [facility] delivery records from her second child in 2006 obtained and sent to Dr. Winston Sanderson's office for review. TKRN Family history of Down syndrome 11/30/2012 08/18/2013 Overview: 11/30/2012Pt's brother has Down's Syndrome. TKRN Generalized pruritus 02/18/2012 013 Choledocholithiasis with chr onic cholecystitis 05/11/2009 03/03/2013 documented as of this encounter (statuses as of 02/02/2023) [facility] History of Past illness Narrative* Problem Noted Date Diagnosed Date Resolved Date Supervision of other high ri sk pregnancies, first trimester 08/23/2015 04/28/2016 Multigravida of advanced mat ernal age in first trimester 08/09/2015 04/28/2016 Overview: 08/09/2015Patient is 40 years old. Advanced Maternal age discussed. Pt refused handouts on Genetic Amniocentesis and [facility]. [facility] handout on Early Screening In given and discussed. Level II Ultrasound and Dr. Moses's services discussed. Patient considering nuchal and NIPT. 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 Advanced Maternal age discussed. Pt refused handouts on Genetic Amniocentesis and [facility]. [facility] handout on Quad Marker Screen and Early Screening In given and discussed. Level II Ultrasound and Dr. Moses's services discussed. TKRN with uncertain dates 11/30/2012 12/24/2012 Overview: 11/30/2012 Patient states her last menstrual period was cloth booker and shorter than normal. An ultrasound was ordered for uncertain dates by Dr. Sanderson. TKRN History of shoulder dystocia in prior , currently 11/30/2012 08/18/2013 Overview: 11/30/2012 Patient has a history of moderate shoulder dystocia with her last . She states that she was told by the analysis or research safety inspector the delivered her first child at the [facility] that we might have to break the baby's shoulder in order to deliver him. Patient signed a release of records form to obtain her delivery records from her first delivery [facility] the [facility]. [facility] delivery records from her second child in 2006 obtained and sent to Dr. Winston Sanderson's office for review. TKRN Family history of Down syndrome 11/30/2012 08/18/2013 Overview: 11/30/2012Pt's brother has Down's Syndrome. TKRN Generalized pruritus 02/18/2012 013 Choledocholithiasis with chr onic cholecystitis 05/11/2009 03/03/2013 documented as of this encounter (statuses as of 03/06/2023) [facility] Abnormal mammogram Abnormal mammogram, unspecified [facility] Diagnosis Encounter for gynecological examination (general) (routine) without abnormal findings Encounter for screening mammogram for breast cancer [facility] Diagnosis Well adult exam- Primary Routine general medical examination at a health care facility Hyperlipidemia LDL goal <130 Other and unspecified hyperlipidemia Screening for diabetes mellitus [facility] Diagnosis Encounter for screening mammogram for breast cancer [facility] Diagnosis Encounter for gynecological examination with abnormal finding- Primary Routine gynecological examination Encounter for screening mammogram for breast cancer Menorrhagia with regular cycle Excessive or frequent menstruation [facility] Diagnosis Encounter for screening mammogram for breast cancer [facility] Diagnostic Procedure Only (Routine) - Closed Specialty Diagnoses / Procedures Referred By Rocio gimenez Referred To Contact [facility] Diagnoses Abnormal mammogram Procedures US BREAST LTD RT US BREAST UNI REAL TIME WITH IMAGE LIMITED Loida Hester, BIRDIE.LOOM DOFFER [address] [place] [address] [facility] [address] [place] [address] Referral ID Status Reason Start Date Expiration Date V isits Requested Visits Authorized [id number] Closed Auto-Generate d Referral 04/29/2021 05/29/2022 1 1 [facility] for referral (narrative)* Diagnostic Procedure Only (Routine) - Pending Review Specialty Diagnoses / Procedures Referred By Contac t Referred To Contact [facility] Diagnoses Encounter for gynecological examination (general) (routine) without abnormal findings Encounter for screening mammogram for breast cancer Procedures LILA SCREENING W ANDREAS SCREENING DIGITAL BREAST TOMOSYNTHESIS BI SCREENING MAMMOGRAPHY BI 2-VIEW BREAST INC CAD Winston Sanderson MD [facility] [place] [address] [facility] [address] [place] [address] Referral ID Status Reason Start Date Expiration Date Visits Requested Visits Authorized [id number] Pending Review Auto-Generat ed Referral 06/05/2021 07/05/2022 1 1 [facility] for referral (narrative)* Diagnostic Procedure Only (Routine) - Pending Review Specialty Diagnoses / Procedures Referred By Contac t Referred To Contact [facility] Diagnoses Encounter for screening mammogram for breast cancer Procedures LILA SCREENING SCREENING MAMMOGRAPHY BI 2-VIEW BREAST INC CAD Chuy Ramos MD [address] [id number] [facility] [address] [place] [address] Referral ID Status Reason Start Date Expiration Date Visits Requested Visits Authorized [id number] Pending Review Auto-Generat ed Referral 06/18/2022 07/18/2023 1 1 [facility] for referral (narrative)* Outpatient Procedure (Routine) - Pending Review Specialty Diagnoses / Procedures Referred By Contac t Referred To Contact [facility] Diagnoses Menorrhagia with regular cycle Procedures ENDOMETRIAL BIOPSY ENDOMETRIAL BX W/WO ENDOCERVIX BX W/O DILAT SPX Winston Sanderson MD [address] [place] [address] [facility] [address] [place] [address] Referral ID Status Reason Start Date Expiration Date Visits Requested Visits Authorized [id number] Pending Review Auto-Generat ed Referral 3 01/27/2024 1 1 * Diagnostic Procedure Only (Routine) - Authorized Specialty Diagnoses / Procedures Referred By Rocio gimenez Referred To Contact [facility] Diagnoses Menorrhagia with regular cycle Procedures US FEMALE PELVIS TRANSVAG US TRANSVAGINAL Winston Sanderson MD [address] [place] [address] Us Imaging [id number] Referral ID Status Reason Start Date Expiration Date Visits Requested Visits Authorized [id number] Authorized Auto-Generat ed Referral 3 02/26/2024 1 1 [facility] for referral (narrative)* Diagnostic Procedure Only (Routine) - Pending Review Specialty Diagnoses / Procedures Referred By Rocio gimenez Referred To Contact [facility] Diagnoses Encounter for screening mammogram for breast cancer Procedures LILA SCREENING SCREENING MAMMOGRAPHY BI 2-VIEW BREAST INC CAD Chuy Ramos MD [address] [place] [address] [facility] [address] [place] [address] Referral ID Status Reason Start Date Expiration Date Visits Requested Visits Authorized [id number] Pending Review Auto-Generat ed Referral 3 02/27/2024 1 1 [facility] for visit Narrative* Diagnostic Procedure Only (Routine) - Closed Specialty Diagnoses / Procedures Referred By Contac t Referred To Contact [facility] Diagnoses Abnormal mammogram Procedures LILA DIAGNOSTIC RT DIAGNOSTIC MAMMOGRAPHY COMPUTER-AIDED DETCJ UNI Loida Hester, APPEALS REVIEWER VETERAN.LOOM DOFFER [address] [place] [address] [facility] [address] [place] [address] Referral ID Status Reason Start Date Expiration Date V isits Requested Visits Authorized [id number] Closed Auto-Generate d Referral 04/29/2021 05/29/2022 1 1 [facility] Summary Purpose Family History No Family History Records Found Advance Directives No Advanced Directives Records Found Additional Source Comments Source Comments (unrecognize d section and content) In the event this informatio n is protected by the Federal Confidentiality of Alcohol and Drug Abuse Patient Records regulations: The Federal rules restrict any use of the information to criminally investigate or prosecute any alcohol or drug abuse patient.[facility] the event this information is protected by the Federal Confidentiality of Alcohol and Drug Abuse Patient Records regulations: The Federal rules restrict any use of the information to criminally investigate or prosecute any alcohol or drug abuse patient.[facility] the event this information is protected by the Federal Confidentiality of Alcohol and Drug Abuse Patient Records regulations: The Federal rules restrict any use of the information to criminally investigate or prosecute any alcohol or drug abuse patient.[facility] the event this information is protected by the Federal Confidentiality of Alcohol and Drug Abuse Patient Records regulations: The Federal rules restrict any use of the information to criminally investigate or prosecute any alcohol or drug abuse patient.[facility] the event this information is protected by the Federal Confidentiality of Alcohol and Drug Abuse Patient Records regulations: The Federal rules restrict any use of the information to criminally investigate or prosecute any alcohol or drug abuse patient.[facility] the event this information is protected by the Federal Confidentiality of Alcohol and Drug Abuse Patient Records regulations: The Federal rules restrict any use of the information to criminally investigate or prosecute any alcohol or drug abuse patient.[facility] the event this information is protected by the Federal Confidentiality of Alcohol and Drug Abuse Patient Records regulations: The Federal rules restrict any use of the information to criminally investigate or prosecute any alcohol or drug abuse patient.[facility] the event this information is protected by the [facility] Confidentiality of Alcohol and Drug Abuse Patient Records regulations: The Federal rules restrict any use of the information to criminally investigate or prosecute any alcohol or drug abuse patient.[facility] the event this information is protected by the Federal Confidentiality of Alcohol and Drug Abuse Patient Records regulations: The Federal rules restrict any use of the information to criminally investigate or prosecute any alcohol or drug abuse patient.[facility] Care Teams (unrecognized sec tion and content) 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 [employer] Security Relationship Specialty Start Date End Date Chuy Ramos MD [address] [place], [place] [id number] PCP - General Family Practice 11/12/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 Security Relationship Specialty Start Date End Date Chuy Ramos MD [address] [place], [place] [phone] PCP - General Family Practice 11/12/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 Security Relationship Specialty Start Date End Date Chuy Ramos MD [address] [place], [place] [id number] PCP - General Family Practice 11/12/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 Security Relationship Specialty Start Date End Date Chuy Ramos MD [address] [place], [place] [id number] PCP - General Family Practice 11/12/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 Security Relationship Specialty Start Date End Date Chuy Ramos MD [address] [place], [place] [phone] PCP - General Family Medicine 11/12/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 Security Relationship Specialty Start Date End Date Chuy Ramos MD [address] [place], [place] [address] PCP - General Family Medicine 11/12/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 Security Relationship Specialty Start Date End Date Chuy Ramos MD [address] [place], [place] [id number] PCP - General Family Medicine 11/12/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 Security Relationship Specialty Start Date End Date Chuy Ramos MD [address] [place], [place] [phone] PCP - General Family Medicine 11/12/20 Reason for Visit (unrecogniz ed section and content) Reason Comments Results Reason Comments Physical Reason Comments Yearly Exam Reason Comments Schedule Surgery INFORMATION SOURCE (unrecogn ized section and content) FOR RECORDS PERTAINING TO PATIENTS WHO ARE OR HAVE BEEN ENROLLED IN A CHEMICAL DEPENDENCY/SUBSTANCEABUSE PROGRAM, SOME INFORMATION MAY BE OMITTED. This clinical summary was aggregated from multiple sources. Caution should be exercised in using it in the provision of clinical care. This summary normalizes information from multiple sources, and as a consequence, information in this document may materially change the coding, format and clinical context of patient data. In addition, data may be omitted in some cases. CLINICAL DECISIONS SHOULD BE BASED ON THE PRIMARY CLINICAL RECORDS. [facility] [employer] [facility]. provides no warranty or guarantee of the accuracy or completeness of information in this document.
[2023-03-27 09:49] LABS: Internal QC Validated? YES +Cl - CLEAR BKGD; Pregnancy, Urine Negative Negative; Record Kit Lot#,Urine Preg HCG0000667200
[2023-03-27 09:53] VITALS: BP 137/96; PULSE 70; RESP 18; TEMP 37.1; O2SAT 100; BMI 23.6
[2023-03-27] MEDS: Ketorolac 30 MG/ML Syringe IV (10:01)
[2023-03-27] MEDS: Acetaminophen 500 MG Tablet 1000 MG PO (10:01)
[2023-03-27] MEDS: Lactated Ringers 1,000 ML 15 ML IV (10:05)
--- NOTE | 2023-03-27 12:00 | DCINST_ITS ---
Discharge Instructions Diet Discharge Diet: No restrictions Activity Discharge Activity: May Drive (tomorrow) and May Shower Return to work on:: 03/30/23 May resume sexual activity in: 2 weeks Lifting Restrictions: none Dressing / Incision Call your doctor if your incision/area has: Sudden Increased Bleeding and Foul Smelling Discharge Call your doctor if you observe: Fever of 101 or Higher and Using more than 1 pad per hour (for 2 hrs in a row) Follow Up Care Please Follow Up With: Maribell Kovacs MD When: No postop appointment is needed. Call [phone] or send a [employer] message to make an appointment or with any concerns. Test Results: Test results from this visit will be discussed in further detail at your follow- up appointment, if applicable. Discharge Plan Admission Primary Reason for Your Visit: Hysteroscopy with endometrial ablation Attending Provider: Maribell Kovacs Primary Care Provider: Irene Beltrán Discharge Orders/Prescriptions Prescriptions: No Action omega-3 fatty acids [Fish Oil Concentrate] 1,000 mg capsule 1,000 mg PO DAILY biotin 5,000 mcg tablet,disintegrating 10,000 mcg PO DAILY giuyjjicfmsb-Uj-kgqa-minerals 18-0.4 mg tablet 1 tab PO DAILY diphenhydramine HCl [Benadryl] 25 mg capsule 25 mg PO QHS Disposition Disposition (needs filled in before D/C Order can be placed): Home, Self Care
--- NOTE | 2023-03-27 12:26 | PCM.OPRPT ---
Problems Associated Problem List Diagnoses (1) Menorrhagia: Report of Operation Date of Procedure: 03/27/23 Pre-Operative Diagnosis: menorrhagia Post-Operative Diagnosis: same Surgery/Procedure Performed:: hysteroscopy with endometrial ablation Description of Surgical Findings:: Very lush endometrium, normal cervix and vagina. 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 The weighted speculum was placed in the vagina and the anterior lip of the cervix was grasped with a single-tooth tenaculum. A paracervical block was administered with [1% lidocaine with 1-100,000 epinephrine solution]. The cervix was dilated serially with Hegar dilators. The [5mm] hysteroscope was placed into the uterine cavity and the above findings were noted. Bilateral tubal ostia [were] identified. The uterus sounded to 8 cm and the cervical length was 3.5 cm. The endometrial cavity length was 4.5 cm. The hysteroscope was removed. The Karen device was set to 4.5cm. The instrument was then seated into the endometrial cavity and the indicator was in the green. The cervical seal balloon was inflated and the uterine integrity test was passed. The ablation procedure was initiated and completed without interruption. During the ablation procedure gentle traction was held on the tenaculum and the Karen device was held up against the uterine fundus. When the ablation procedure was completed the Karen was removed. The tenaculum was removed and the tenaculum site was noted to be hemostatic. All sponge and needle counts were correct. A vaginal sweep was performed by me. The patient was awakened and taken to the recovery room in stable condition. Hysteroscopic fluid deficit 100 cc of normal saline Grafts/Implants Used: none Procedure Start Time: 12:30 Procedure Stop Time: 12:39 Complications none Admit VTE Documentation VTE Present on Admission: No VTE Mechan Device Prophylaxis: SCD's VTE Pharm Prophylaxis ordered?: No
[2023-03-27] MEDS: Lidocaine 1%/Epi 1:200 (30ml) 30 ML AMPUL (12:30)
[2023-03-27 12:50] VITALS: BP 114/79; BP 137/96; BP 99/74; PULSE 85; PULSE 86; RESP 18; TEMP 36.5; O2SAT 100
[2023-03-27 12:55] VITALS: BP 114/87; BP 137/96; PULSE 85; RESP 18; O2SAT 100
[2023-03-27 13:01] VITALS: BP 117/84; BP 137/96; PULSE 65; RESP 18; TEMP 36.9; O2SAT 100
[2023-03-27 13:39] VITALS: BP 137/96
== END 2023-03-27 13:40 | disposition home or self-care (01) ==
LOC: SDC 09:23 → AC 09:25
PROVIDERS: Anesthesiology; PCP Physician Assistant; Referring Provider Obstetrics & Gynecology; Visit Provider Obstetrics & Gynecology
PROC: 0U5B8ZZ Destruction of Endometrium, Via Natural or Artificial Opening Endoscopic (ICD-10-PCS; CPT 58558; principal; 2023-03-27 10:50)
DX: N92.0 Excessive and frequent menstruation with regular cycle (principal)
CPT/HCPCS: 58563; 81025; J7120; J2405

== ENCOUNTER 2025-02-21 09:32 | Inpatient (IN) | payer OTHER, SELFPAY ==
[2025-02-21] VITALS (9 sets, daily range): BP systolic 93–153; BP diastolic 62–124; PULSE 58–105; RESP 16–24; TEMP 36.3–37.1; O2SAT 99–100; BMI 22.8; BMI 24.2
--- NOTE | 2025-02-21 09:43 | CT_ITS ---
PROCEDURE: CHEST WITH CONTRAST 02/21/2025 REASON FOR EXAM: FELL 8 FT FROM LADDER ONTO L-CHEST TECHNIQUE: Procedure Code: CTCHW Modality: CT Procedure: CHEST WITH CONTRAST CT of the chest is performed following the intravenous administration of contrast. Axial, coronal and sagittal reconstruction series were provided. CONTRAST: Isovue 370 VOLUME: 93 mL One or more dose reduction techniques were used (e.g., Automated exposure control, adjustment of the mA and/or kV according to patient size, use of iterative reconstruction technique). RADIATION DOSE SUMMARY: Total DLP: 266.52 MGycm COMPARISON: None FINDINGS: Base of the neck: Normal Lymph nodes: No lymphadenopathy. Heart and Vasculature: Normal-sized heart. No coronary artery no aneurysm or dissection. Lungs and Airways: Patchy opacities in the dependent portion of the left base. Differential considerations include atelectasis or tiny contusions. The right lung is clear. Pleura: Wejqg-wc-qdfxzxri left pneumothorax. No pleural effusion. Upper Abdomen: Unremarkable appearance of the spleen and visible kidneys. Bones: No compression fracture deformity. No displaced rib fracture identified. CT/Chest WITH Contrast IMPRESSION: Tpioa-hp-djxvngrk left pneumothorax. Dependent atelectasis versus tiny contusions in the periphery of the left lower lobe, dependent portion. No obvious rib fracture. Red Alert: Left pneumothorax The critical findings in the findings and impression above were relayed directl y by me by telephone to Jb Mckeon on 02/21/2025 at 10:26 am with readback verification. Reading Location: [id number]
--- NOTE | 2025-02-21 09:46 | EDS_ITS ---
HPI HPI - Fall History of Present Illness Chief Complaint: Trauma Informant: patient Occured/Mechanism Occurred: Today Fall from Height (ft): About 8 feet off of a ladder onto the gym floor Usually ambulates: Without assistance Pain/Injury Pain Location: chest (Left chest wall) and upper extremity (Left hand primarily left thumb) Quality of Pain: Sharp Current Severity: Moderate Maximum Severity: Moderate Associated Symptoms Associated Symptoms: Negative for Parasthesias, Weakness, Loss of function, Inability to ambulate, Loss of consciousness or Amnesia Narrative Narrative: Healthy 41-year-old female 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 Complaining of left chest wall pain and left thumb pain. She is right-hand dominant. No LOC. Prior similar symptoms: No Recent Illness/Hospitalization: No PFSH PFSH Medical History Arthritis Seizures Non-smoker Abnormal mammogram of right breast Home Medications ?Medication ?Instructions ?Recorded ?Last Taken ?Type biotin 5,000 mcg disintegrating 10,000 mcg PO DAILY 02/21/25 History tablet omega-3 fatty acids 1,000 mg 1,000 mg PO DAILY 1 02/21/25 History capsule (Fish Oil Concentrate) diphenhydramine HCl 25 mg capsule 25 mg PO QHS 4 02/20/25 History (Benadryl) ibuprofen 200 mg tablet (IBU-200) 600 mg PO Q8H PRN fe shagufta or pain 02/21/25 02/20/25 History multivitamin-folic acid 400 2 tab PO DAILY 02/21/25 History mcg-biotin 2,000 mcg tablet (Yvlr-Laht-Rjopl ([id number])) Allergy/AdvReac Type Severity Reaction Status Date / Time Penicillins Allergy Vomiting Verified 02/21/25 09:37 Family History Mother Cancer Surgical History History of surgery on right wrist History of tonsillectomy History of laparoscopic cholecystectomy Social History Smoking Status: Never smoker ROS ROS ED ROS Narrative Last week had nausea vomiting diarrhea since resolved. Constitutional Constitutional ED: Denies chills or fever(s) Eyes Eyes: Denies blurry vision ENT ENT ED: Denies ear pain Cardiovascular Cardiovascular: Denies chest pain Respiratory/Chest Respiratory/Chest: Denies cough or dyspnea Gastrointestinal Gastrointestinal: Denies abdominal pain Genitourinary Genitourinary ED: Denies dysuria or hematuria Musculoskeletal Musculoskeletal: Denies arthralgias Integumentary Denies abscess or Abrasions Neurologic Neurologic: Denies headache(s) Psychiatric Psychiatric: Denies anxiety Endocrine Endocrinology: Denies polydipsia Hematologic/Lymphatic Hematologic/Lymphatic: Denies easy bleeding, easy bruising or lymphadenopathy Allergic/Immunologic Allergic/Immunologic ED: Denies mouth swelling, tongue swelling or urticaria EXAM Physical Exam Narrative Exam Narrative: 49-year-old female sitting upright in bed. Vital signs are stable afebrile. No acute distress. H EENT exam pupils round react light. Moist mucous membranes. She can open close her mouth any difficulty. There is no significant swelling to her face. There is a small abrasion to her left lower jaw. The jaw itself is no significant tenderness. There is no significant swelling. There is no signs of a fracture of the jaw. Dentition is intact. C-spine and trachea nontender. Neck nontender. Lungs clear to auscultation bilaterally. Heart regular rhythm rate about 60 no murmur. Chest wall she has diffuse tenderness on her left mid and upper chest wall. Currently no bruising. No crepitance. No swelling. Breast tenderness along the chest wall. Right side and sternum are nontender. Abdomen is soft and nontender no bruising. No peritoneal signs. Pelvic girdle intact. She can move all 4 extremities. Normal range of motion. No deformity. She has tenderness along her left thumb. However she has full flexion extension of the thumb. There is no deformity. Normal radial pulse wrist and forearm are nontender. Back her C-spine, thoracic and lumbar spine are nontender there is no ecchymosis and bruising. Neurologically she is awake alert. Answering questions following commands. No LOC. GCS of 15. Const Vital Signs: 02/21/25 09:33 02/21/25 09:51 02/21/25 10:44 Temperature 97.3 F L Temperature Source Oral Pulse Rate 58 L 75 Respiratory Rate 16 18 Respiratory Effort Normal Respiratory Depth Normal Respiratory Pattern Normal Blood Pressure 127/78 H 133/98 H Blood Pressure Mean 94 109 Pulse Ox 100 100 Oxygen Delivery Method Room Air Room Air Room Air 02/21/25 11:00 02/21/25 12:00 02/21/25 13:00 Temperature Temperature Source Pulse Rate 73 78 105 H Respiratory Rate 18 18 22 H Respiratory Effort Respiratory Depth Respiratory Pattern Blood Pressure 124/78 H 153/124 H 93/62 Blood Pressure Mean 93 133 72 Pulse Ox 100 99 100 Oxygen Delivery Method Room Air Room Air Room Air MDM MDM MDM Narrative Medical decision making narrative: 49-year-old female fell about 8 feet off of a ladder onto a gym floor and landed on a basketball hoop that was on the floor. Injuring primarily her left chest wall and left thumb. She was offered but did not wining for pain she took 3 ibuprofen prior to arrival. She did not hit her head. She had no LOC. I do not think she needs a CAT scan of her head or neck. We will get a CAT scan of her chest and also an x-ray of her left hand. Post thoracostomy tube placement the lung was reexpanded. I did go over the x- ray with patient and family. Thoracostomy tubes in place. History & Record Review Discussion w/independent historian: Patient Additional record(s) reviewed:: Prior outpatient record, Prior ED visit and Prior labs Lab Data Attestation: I reviewed the patient's lab results. Lab results narrative: CBC unremarkable. White count of 10. H&H 13 and 39. Platelets 223. Electrolytes unremarkable gap 11. Normal BUN of 18 creatinine 0.8. Glucose 110. Liver enzymes unremarkable. CT chest left pneumothorax. No obvious rib fractures. CT brain, CT C-spine, CT abdomen no acute process read by the radiologist. Labs: Laboratory Results - last 24 hr 02/21/25 10:25 WBC 10.5 RBC 4.28 Hgb 13.2 Hct 39.5 MCV 92.3 MCH 30.8 MCHC 33.4 RDW Std Deviation 41.9 RDW Coeff of Mellisa 12.4 Plt Count 223 MPV 9.7 Immature Gran % (Auto) 0.400 Neut % (Auto) 83.9 H Lymph % (Auto) 7.9 L Dawes % (Auto) 5.6 Eos % (Auto) 1.9 Baso % (Auto) 0.3 Absolute Neuts (auto) 8.9 H Absolute Lymphs (auto) 0.83 Nucleated RBC % 0 Sodium 140 Potassium 4.2 Chloride 105 Carbon Dioxide 24.8 Anion Gap 11 BUN 18 Creatinine 0.87 Estim Creat Clear Calc 56.80 Est GFR (MDRD) Non-Af 82 BUN/Creatinine Ratio 20.7 H Glucose 110 H Calcium 9.4 Total Bilirubin 0.38 AST 27 ALT 22 Alkaline Phosphatase 65 Total Protein 7.4 Albumin 4.5 Globulin 2.9 Albumin/Globulin Ratio 1.6 Radiography Chest X-Ray - ED: 1 View, Read by ED Physician, Lungs, Bony Structures and No Acute Disease Diagnostic Testing: Clinical Impression(s) from Imaging Studies Chest CT 02/21/25 09:43 IMPRESSION: [id number] left pneumothorax. Dependent atelectasis versus tiny contusions in the periphery of the left lower lobe, dependent portion. No obvious rib fracture. Red Alert: Left pneumothorax The critical findings in the findings and impression above were relayed directly by me by telephone to Jb Mckeon on 02/21/2025 at 10:26 am with readback verification. Reading Location: [facility] Hand X-Ray 02/21/25 10:00 IMPRESSION: No acute osseous abnormality. Reading Location: [facility] Abdomen/Pelvis CT 02/21/25 10:08 IMPRESSION: No acute process of the abdomen or pelvis. Moderate left pneumothorax.. No acute osseous abnormality. No displaced rib fracture. Reading Location: [facility] Brain CT 02/21/25 10:08 IMPRESSION: CT of the head was performed following a CT of the chest with contrast. Enhanced exam limits evaluation of sub dural and subarachnoid hemorrhage. No acute intracranial abnormality. Reading Location: [facility] Cervical Spine CT 02/21/25 10:08 IMPRESSION: No acute fracture of the cervical spine. Moderate degenerative disc disease at C5-6. Reversal of the normal cervical lordosis likely secondary to muscle spasm or positioning. Left pneumothorax. Reading Location: [id number] Portable chest x-ray post thoracostomy tube placed on the left. Thoracostomy tubes in place. Left lung is reexpanded. Again no hemothorax. Procedures Other Procedures Procedure(s): Left pneumothorax. Left Heimlich valve thoracostomy tube placed. Area was cleaned and sterile towels draped. At about the nipple level I did plain lidocaine injection. Then I placed a thoracostomy tube. I palpated the rib and 1 above the rib. There was a worthy of air. Patient tolerated well. Was sewn in place and hooked to low intermittent suction. Patient's vital signs stayed stable the entire time she is resting comfortably. She was given morphine prior to the procedure. A postprocedure chest x-ray is being obtained. Critical Care Time Critical Care Time: Yes Critical care time (excluding procedures): 30-74 minutes, Including time spent:, Discussing w/Patient &/or Family/Voip Engineer, Discussing w/Consultants, Arranging Admission or Transfer, Performing Direct Patient Care at Bedside and - (45 minutes) Discharge Plan Dx/Rx/DC Orders Clinical Impression: Fall from height of greater than 3 feet, Pneumothorax on left, Contusion of left chest wall, Left thumb sprain, Encounter related to worker's compensation claim Disposition Disposition: Acute Care [facility]
--- NOTE | 2025-02-21 10:00 | RAD_ITS ---
PROCEDURE: HAND MIN 3 VIEWS 02/21/2025 REASON FOR EXAM: FELL FROM LADDER ATTENTION L-THUMB TECHNIQUE: Procedure Code: DALE Modality: DX Procedure: HAND MIN 3 VIEWS Laterality: Left COMPARISON: None FINDINGS: Bones: No acute fracture. Joints: Normal alignment. Joint spaces preserved. No arthropathic features. Soft tissues: Soft tissues are unremarkable. RAD/Hand Min 3 Views IMPRESSION: No acute osseous abnormality. Reading Location: [facility]
--- NOTE | 2025-02-21 10:08 | CT_ITS ---
PROCEDURE: ABDOMEN/PELVIS WITHOUT CONT 02/21/2025 REASON FOR EXAM: TRAUMA. ALREADY INJECTED FOR CT CHEST TECHNIQUE: Procedure Code: CTABDPEL Modality: CT Procedure: ABDOMEN/PELVIS WITHOUT CONT Noncontrast technique limits evaluation of the abdominal and pelvic viscera. Coronal and Sagittal reconstruction series were provided. One or more dose reduction techniques were used (e.g., Automated exposure control, adjustment of the mA and/or kV according to patient size, use of iterative reconstruction technique). RADIATION DOSE SUMMARY: Total DLP: 1908.97 MGycm COMPARISON: CT of the lung dictated separately FINDINGS: HEART:Normal position. No abnormal enlargement. LUNG BASES:Moderate-sized left pneumothorax with either dependent atelectatic changes of the lower lobe versus pulmonary contusions. No obvious displaced rib fracture identified on this exam. LIVER:No enlargement, atrophy, abnormal density, or significant focal lesion. GALLBLADDER/BILIARY:The gallbladder has been removed. There is mild intra and extrahepatic biliary ductal dilatation, expected after cholecystectomy. No gallstones PANCREAS:No lesion, fluid collection, or duct dilatation. SPLEEN:No enlargement or focal lesion. RETROPERITONEUM:No mass or adenopathy. ADRENALS:No mass or enlargement. KIDNEYS:No hydronephosis, mass, obstruction, or calcification. Bilateral excretion URINARY BLADDER:No focal wall thickening, trabeculation, lesion, or calculus. INTRAPERITONEAL SPACE:No free air. No significant fluid collection. No mass or adenopathy. AORTA/VASCULAR:No aneurysm or dissection. STOMACH/BOWEL/MESENTERY:No mass, obstruction, or bowel wall thickening. No evidence of appendicitis or diverticulitis LYMPH NODES:No adenopathy. PELVIC ORGANS:No mass. Pelvic organs appropriate for patient age. ABDOMINAL WALL:No fluid collections or foreign bodies. No mass or adenopathy. BONES:No osseous lesions or fractures. CT/Abdomen/Pelvis without Cont IMPRESSION: No acute process of the abdomen or pelvis. Moderate left pneumothorax.. No acute osseous abnormality. No displaced rib f racture. Reading Location: [facility]
--- NOTE | 2025-02-21 10:08 | CT_ITS ---
PROCEDURE: BRAIN/HEAD WITHOUT CONTRAST 02/21/2025 REASON FOR EXAM: FELL 8 FEET TECHNIQUE: Procedure Code: CTBR Modality: CT Procedure: BRAIN/HEAD WITHOUT CONTRAST CT of the head is performed after the intravenous administration of contrast. This limits the sensitivity of the exam for detection of subarachnoid hemorrhage. Axial coronal and sagittal reconstruction series were provided. One or more dose reduction techniques were used (e.g., Automated exposure control, adjustment of the mA and/or kV according to patient size, use of iterative reconstruction technique. RADIATION DOSE SUMMARY: DLP: 779.24 mGycm COMPARISON: None relevant FINDINGS: Brain: No acute intracranial hemorrhage midline shift or positive mass effect. Normal camilo-white matter differentiation. The cerebellar hemispheres and posterior fossa are within normal limits. Midline structures: Orbits and pituitary fossa are within normal limits. Additional midline structures are unremarkable. CSF Spaces: Normal appearance of the ventricles. No extra-axial fluid collection or hemorrhage. Sinuses/Mastoids: Clear at visualized levels Bones: No fracture. CT/Brain/Head without Contrast IMPRESSION: CT of the head was performed following a CT of the chest with contrast. Enhanc ed exam limits evaluation of sub dural and subarachnoid hemorrhage. No acute intracranial abnormality. Reading Location: [id number]
--- NOTE | 2025-02-21 10:08 | CT_ITS ---
PROCEDURE: SPINE CERVICAL WITHOUT CONTRAS 02/21/2025 REASON FOR EXAM: FELL 8 FEET TECHNIQUE: Procedure Code: CTSPC Modality: CT Procedure: SPINE CERVICAL WITHOUT CONTRAS CT of the cervical spine is performed without contrast. Exam follows a CT of the chest which was performed with intravenous contrast. Axial sagittal and coronal reformatted images are submitted for interpretation. One or more dose reduction techniques were used (e.g., Automated exposure control, adjustment of the mA and/or kV according to patient size, use of iterative reconstruction technique. RADIATION DOSE SUMMARY: DLP: 244.04 mGycm COMPARISON: None relevant FINDINGS: The vertebral bodies are normal height and well aligned. No jumped facets present. The atlantooccipital and atlantoaxial joints appear normally aligned. The atlas and axis are intact. The remaining vertebral bodies are normal in height. There is no evidence of focal lytic or sclerotic lesion in the cervical, thoracic, or lumbar spine. Moderate degenerative disc disease is present at C5-6 with uncovertebral spurring and disc osteophyte complex. Left pneumothorax, known. CT/Spine Cervical without Contras IMPRESSION: No acute fracture of the cervical spine. Moderate degenerative disc disease at C5-6. Reversal of the normal cervical lordosis likely secondary to muscle spasm or po sitioning. Left pneumothorax. Reading Location: [id number]
[2025-02-21] MEDS: Lidocaine 1% (20 ml mdv) 20 ML Vial 10 ML INFILT (10:20)
[2025-02-21 10:43] LABS: Hematocrit 39.5 % (37-47); Hemoglobin 13.2 g/dL (12.0-15.0); Immature Granulocytes Count 0.040 X10^3/uL (0.0-0.0); Mean Corp Hgb Conc 33.4 g/dL (32-36); Mean Corpuscular Volume 92.3 fL (81-99); Mean Platelet Vol. 9.7 fl (6.2-12.0); NRBC Flagged by Analyzer 0 % (0-5); Platelet Count 223 K/mm3 (150-450); RBC Distribution Width CV 12.4 % (11.6-14.6); RBC Distribution Width SD 41.9 fl (35.1-43.9); Red Blood Count 4.28 M/mm3 (4.2-5.4); White Blood Count 10.5 K/mm3 (4.4-11.0)
[2025-02-21 11:17] LABS: AST(SGOT) 27 U/L (<=31); Alanine Aminotransfer ALT/SGPT 22 U/L (<=34); Albumin, Serum 4.5 g/dL (3.5-5.0); Alkaline Phosphatase 65 U/L (35-104); Anion Gap 11 (5-15); BUN 18 mg/dL (4-19); BUN/Creat Ratio 20.7 RATIO (10-20); Calcium,Total 9.4 mg/dL (7.6-11.0); Carbon Dioxide 24.8 mmol/L (21.0-32.0); Chloride 105 mmol/L (98-108); Estimated Creatinine Clearance 56.80 ml/min (50-250); Globulin 2.9 g/dL (2.2-4.2); Glucose 110 mg/dL (70-99); Potassium 4.2 mmol/L (3.3-5.1)
--- NOTE | 2025-02-21 13:30 | RAD_ITS ---
PROCEDURE: CHEST 1 VIEW (PORTABLE) 02/21/2025 REASON FOR EXAM: POST CHEST TUBE ON LEFT TECHNIQUE: Frontal view of the chest. COMPARISON: 02/21/2025. FINDINGS: Unchanged minimal left basilar atelectatic pulmonary changes. Unchanged minimal residual left apical pneumothorax. Left pleural drainage catheter remains in good position with its tip in the base of the left pleural cavity. Normal heart and pericardium. Normal mediastinum and arleth. Normal visualized pulmonary arteries. Normal visualized aortic arch and descending thoracic aorta. Normal visualized thoracic spine. Normal visualized ribs, clavicles, and shoulders. There is no demonstrated abnormality of the visualized soft tissue structures of the upper abdomen. RAD/Chest 1 View (Portable) IMPRESSION: Unchanged minimal left basilar atelectatic pulmonary changes. Unchanged minimal residual left apical pneumothorax. Left pleural drainage catheter remains in good position with its tip in the bas e of the left pleural cavity. Reading [facility]
[2025-02-21] MEDS: Ketorolac 30 MG/ML Syringe IV (13:44)
--- NOTE | 2025-02-21 14:55 | PCM.HP.STD ---
HPI - General General Date of Admission: 02/21/25 Date of Service: 02/21/25 Chief Complaint: Left pneumothorax HPI Narrative SANGEETHA VO, is a 49 F who presents from a fall at work. Patient notes she was on a ladder at work adjusting the [employer] basketball hoop. 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 She notes pushing the hoop a little too hard and the ladder tipped and she fell approximately 6 feet to the ground. She noted attempting to take ibuprofen to feel better, however she was more short of breath and sore in the left chest and decided to present to the ED. She denies any cardiac or pulmonary issues. She is not on any blood thinners currently. CT of her cervical spine, brain, chest and abdomen/pelvis was completed. CT chest demonstrated a small to moderate left pneumothorax. Remaining images were unremarkable. Left thoracostomy tube was placed in the ED and placed on wall suction. [facility] Medical History Arthritis Seizures Non-smoker Abnormal mammogram of right breast Home Medications ?Medication ?Instructions ?Recorded ?Last Taken ?Type biotin 5,000 mcg disintegrating 10,000 mcg PO DAILY 04/02/20 02/21/25 History tablet omega-3 fatty acids 1,000 mg 1,000 mg PO DAILY 04/02/20 02/21/25 History capsule (Fish Oil Concentrate) diphenhydramine HCl 25 mg capsule 25 mg PO QHS 03/23/23 02/20/25 History (Benadryl) ibuprofen 200 mg tablet (IBU-200) 600 mg PO Q8H PRN fever or pain 02/21/25 02/20/25 History multivitamin-folic acid 400 2 tab PO DAILY 02/21/25 02/21/25 History mcg-biotin 2,000 mcg tablet ([id number] ([id number])) Allergy/AdvReac Type Severity Reaction Status Date / Time Penicillins Allergy Vomiting Verified 02/21/25 09:37 Family History Mother Cancer Surgical History History of surgery on right wrist History of tonsillectomy History of laparoscopic cholecystectomy Social History Smoking Status: Never smoker ROS Constitutional Constitutional: Reports systems reviewed and no addt'l complaints, except as documented Eyes Eyes: Reports systems reviewed and no addt'l complaints, except as documented ENT HEENT: Reports systems reviewed and no addt'l complaints, except as documented Cardiovascular Cardiovascular: Reports systems reviewed and no addt'l complaints, except as documented Respiratory/Chest Respiratory/Chest: Reports systems reviewed and no addt'l complaints, except as documented Gastrointestinal Gastrointestinal: Reports systems reviewed and no addt'l complaints, except as documented Genitourinary Genitourinary: Reports systems reviewed and no addt'l complaints, except as documented Musculoskeletal Musculoskeletal: Reports systems reviewed and no addt'l complaints, except as documented Integumentary Integumentary: Reports systems reviewed and no addt'l complaints, except as documented Neurologic Neurologic: Reports systems reviewed and no addt'l complaints, except as documented Psychiatric Psychiatric: Reports systems reviewed and no addt'l complaints, except as documented Endocrine Endocrinology: Reports systems reviewed and no addt'l complaints, except as documented Hematologic/Lymphatic Hematologic/Lymphatic: Reports systems reviewed and no addt'l complaints, except as documented Allergic/Immunologic Allergic/Immunologic: Reports systems reviewed and no addt'l complaints, except as documented Vital Signs Vital Signs Vital Signs: 02/21/25 09:33 02/21/25 09:51 02/21/25 10:44 Temperature 97.3 F L Temperature Source Oral Pulse Rate 58 L 75 Respiratory Rate 16 18 Respiratory Effort Normal Respiratory Depth Normal Respiratory Pattern Normal Blood Pressure 127/78 H 133/98 H Blood Pressure Mean 94 109 Pulse Ox 100 100 Oxygen Delivery Method Room Air Room Air Room Air 02/21/25 11:00 02/21/25 12:00 02/21/25 13:00 Temperature Temperature Source Pulse Rate 73 78 105 H Respiratory Rate 18 18 22 H Respiratory Effort Respiratory Depth Respiratory Pattern Blood Pressure 124/78 H 153/124 H 93/62 Blood Pressure Mean 93 133 72 Pulse Ox 100 99 100 Oxygen Delivery Method Room Air Room Air Room Air 02/21/25 14:00 Temperature Temperature Source Pulse Rate 76 Respiratory Rate 18 Respiratory Effort Respiratory Depth Respiratory Pattern Blood Pressure 124/97 H Blood Pressure Mean 106 Pulse Ox 100 Oxygen Delivery Method Room Air Weight Weight: 117 lb 1.047 oz Body Mass Index (BMI) 22.8 Physical Exam Const alert, oriented x3 and no apparent distress HEENT normocephalic and head/scalp atraumatic Eyes PERRL Neck full ROM Chest Chest Narrative: Left lateral chest- chest tube intact and secured with elastoplast. Very, very slow air leak noted within the canister. Resp normal respiratory effort and clear to auscultation bilaterally Cardio regular rate and regular rhythm GI normal to inspection, nondistended, normoactive bowel sounds no CVA tenderness Back/Spine no CVA tenderness Extremity normal to inspection Skin no rashes or lesions noted Neuro no focal motor deficits and no sensory deficits noted Psych mental status grossly normal, thought process normal and cooperative Results Lab / Micro Data 02/21/25 10:25 02/21/25 10:25 Labs: Laboratory Results - last 24 hr 02/21/25 10:25: WBC 10.5, RBC 4.28, Hgb 13.2, Hct 39.5, MCV 92.3, MCH 30.8, MCHC 33.4, RDW Std Deviation 41.9, RDW Coeff of Mellisa 12.4, Plt Count 223, MPV 9.7, Immature Gran % (Auto) 0.400, Neut % (Auto) 83.9 H, Lymph % (Auto) 7.9 L, Maverick % (Auto) 5.6, Eos % (Auto) 1.9, Baso % (Auto) 0.3, Absolute Neuts (auto) 8.9 H, Absolute Lymphs (auto) 0.83, Nucleated RBC % 0, Sodium 140, Potassium 4.2, Chloride 105, Carbon Dioxide 24.8, Anion Gap 11, BUN 18, Creatinine 0.87, Estim Creat Clear Calc 56.80, Est GFR (MDRD) Non-Af 82, BUN/Creatinine Ratio 20.7 H, Glucose 110 H, Calcium 9.4, Total Bilirubin 0.38, AST 27, ALT 22, Alkaline Phosphatase 65, Total Protein 7.4, Albumin 4.5, Globulin 2.9, Albumin/Globulin Ratio 1.6 Imaging Radiology Impression Chest CT 02/21/25 09:43 IMPRESSION: [id number] left pneumothorax. Dependent atelectasis versus tiny contusions in the periphery of the left lower lobe, dependent portion. No obvious rib fracture. Red Alert: Left pneumothorax The critical findings in the findings and impression above were relayed directly by me by telephone to Mike Jb on 02/21/2025 at 10:26 am with readback verification. Reading Location: [id number] Hand X-Ray 02/21/25 10:00 IMPRESSION: No acute osseous abnormality. Reading Location: [facility] Abdomen/Pelvis CT 02/21/25 10:08 IMPRESSION: No acute process of the abdomen or pelvis. Moderate left pneumothorax.. No acute osseous abnormality. No displaced rib fracture. Reading Location: [id number] Brain CT 02/21/25 10:08 IMPRESSION: CT of the head was performed following a CT of the chest with contrast. Enhanced exam limits evaluation of sub dural and subarachnoid hemorrhage. No acute intracranial abnormality. Reading Location: [id number] Cervical Spine CT 02/21/25 10:08 IMPRESSION: No acute fracture of the cervical spine. Moderate degenerative disc disease at C5-6. Reversal of the normal cervical lordosis likely secondary to muscle spasm or positioning. Left pneumothorax. Reading Location: [facility] [place] Assessment & Plan Assessment/Plan (1) Pneumothorax on left: (2) Contusion of left chest wall: PLAN: Plan I am seeing this patient in conjunction with Dr. Dasilva. He will independently evaluate this patient. Patient is a 49 y/o F, overall very healthy, who presented after a high fall from a ladder to the floor. CT chest confirmed a left pneumothorax. Chest tube was placed in the ED. Plan will be to admit patient for observation, place chest tube to wall suction. Plan will be to obtain a chest x-ray in the morning and hopefully place to waterseal. Patient and her family have had the opportunity to ask and have questions answered. Patient verbally understands and agrees with the proposed plan. Charges/Coding Visit Charges Inpatient E&M: 03435 Init Hosp L2
--- OUTSIDE RECORDS SUMMARY | 2025-02-21 18:49 | XMS RPT_ITS | CCD ---
Author Organization [facility] Care Team Providers Care Structural Architect Name Role Phone Gasper Ramos MD Primary Care Provider [phone] Winston Sanderson Attending Unavailable Gasper Ramos MD Primary Care Provider Fidel METAL SANDER AND FINISHER.Sylvie NICHOLSON Unavailable Irene Beltrán PA-C Unavailable Fidel METAL SANDER AND FINISHER.Sylvie NICHOLSON Unavailable Irene Beltrán PA-C Unavailable IRENE BELTRÁN Referring Unavailable GASPER RAMOS Primary Care Unavailable IRENE BELTRÁN Referring Unavailable GASPER RAMOS Primary Care Unavailable GASPER RAMOS Primary Care Unavailable IRENE BELTRÁN Attending Unavailable GASPER RAMOS Primary Care Unavailable IRENE BELTRÁN Referring Unavailable GASPER RAMOS Primary Care Unavailable WINSTON SANDERSON Attending Unavailable GASPER RAMOS Primary Care Unavailable GASPER RAMOS Referring Unavailable GASPER RAMOS Primary Care Unavailable Allergies Allergy Classification Reported Allergen(s) Allergy Type Date of Onset Reaction(s) Facility (4 sources) Penicillins; Translations: [PENICILLINS] Propensity to adverse reactions 6 Vomiting [facility] Work Phone: (8 sources) Seasonal allergy Allergy to substance 0 Other: See Comments [facility] (14 sources) Penicillins Propensity to adverse reactions 6 Vomiting [facility] Work Phone: (1 source) Penicillins Drug allergy (disorder) 1 [facility] (1 source) Penicillins Allergy to substance 4 [facility] (3 sources) Penicillins Propensity to adverse reactions 6 Vomiting [facility] Medications Current Medications Medication Drug Class(es) Dates Sig (Normalized) Sig (Original) ascorbic acid/collagen hydr (COLLAGEN SKIN RENEWAL ORAL) (14 sources) ascorbic acid/co llagen hydr (COLLAGEN SKIN RENEWAL ORAL) Take by mouth. Active ascorbic acid/co llagen hydr (COLLAGEN SKIN RENEWAL ORAL) Take by mouth. 0 Active Comment on above: Take by mouth. azithromycin 250 mg oral tablet (4 sources) Macrolide Antimicrobial Start: 05-04-19 25 take 2 tablets by mouth once daily, then take 1 tablet by mouth once daily azithromycin (ZITHROMAX Z-VENUS) 250 mg tablet Take 2 tablets by mouth once daily for 1 day, then 1 tablet once daily for 4 days 6 tablet 05/04/2024 Active biotin 5 mg disintegrating oral tablet (18 sources) Start: 04-02-19 21 take 42971 ug by mouth once daily Biotin Active 88484 MCG PO DAILY April 02, 2020 12:00am BIOTIN ORAL Take by mouth once daily. Active BIOTIN ORAL Take by mouth once daily. 0 Active Comment on above: Take by mouth once d aily. diphenhydrAMINE hydrochloride 25 mg oral capsule (20 sources) Histamine-1 Receptor Antagonist Start: 03-23-19 24 take 1 capsule by mouth at bedtime Diphenhydramine Hcl (Benadryl) 25 mg capsule Active 25 MG PO AT BEDTIME March 23, 2023 12:00am diphenhydramine HCl (BENADRYL ORAL) Take by mouth. Active diphenhydramine HCl (BENADRYL ORAL) Take by mouth. 0 Active Comment on above: Take by mouth. docosahexaenoic acid/epa (FI SH OIL ORAL) (17 sources) docosahexaenoic acid/epa (FISH OIL ORAL) Take by mouth once daily. Active docosahexaenoic acid/epa (FISH OIL ORAL) Take by mouth once daily. 0 Active Comment on above: Take by mouth once d aily. HAIR, SKIN AND NAILS, BIOTIN, ORAL (3 sources) HAIR, SKIN AND NAILS, BIOTIN, ORAL Take by mouth. Active Mqzodcvyyujy-Tx-Rcl n-Minerals (1 source) Start: 04-02-2020 take 1 tablet by mouth once daily Xiklgbjzdhzb-Lu-Ps on-Minerals Active 1 TABLET PO DAILY April 02, 2020 12:00am mv,Ca,min/iron/FA/g uarana/caff (ONE-A-DAY WOMEN'S ACTIVE ORAL) (20 sources) mv,Ca,min/iron/F A/ guarana/caff (ONE-A-DAY WOMEN'S ACTIVE ORAL) Take by mouth. Active mv,Ca,min/iron/F A/guarana/caff (ONE-A-DAY WOMEN'S ACTIVE ORAL) Take by mouth. 0 Active Comment on above: Take by mouth. [place]-3 Fatty Acids (Fish Oil Concentrate) 1,000 mg capsule (1 source) Start: take 1 capsule by mouth once daily [place]-3 Fatty Acids (Fish Oil Concentrate) 1,000 mg capsule Active 1000 MG PO DAILY April 02, 2020 12:00am rosuvastatin calcium 5 mg oral tablet (2 sources) HMG-CoA Reductase Inhibitor Start: take 1 tablet by mouth once daily at bedtime rosuvastatin (CRESTOR) 5 mg tablet Take 1 tablet by mouth daily at bedtime. 90 tablet 3 08/18/2024 Active Completed/Discontinued Medications Medication Drug Class(es) Dates Sig (Normalized) Sig (Original) acetaminophen 325 mg oral tablet (11 sources) End: 04-05-2024 take 2 tablets by mouth every six hours as needed acetaminophen (TYLENOL) 325 mg tablet Take 650 mg by mouth every 6 hours as needed. 04/05/2024 Discontinued Comment on above: Take 650 mg by mouth every 6 hours as needed. cetirizine hydrochloride 10 mg oral tablet (5 sources) Histamine-1 Receptor Antagonist Start: 03-18-2016 End: 04-02-2020 take 20 mg by mouth once daily Cetirizine Discontinued 20 MG PO DAILY March 18, 2016 12:00am April 02, 2020 2:49pm End: 11-25-2021 take 1 tablet by mouth twice daily cetirizine (ZYRTEC) 10 mg tablet Take 10 mg by mouth twice daily. 0 11/25/2021 Discontinued Comment on above: Take 10 mg by mouth twice daily. ibuprofen 800 mg oral tablet (1 source) Nonsteroidal Anti-inflammatory Drug Start: 03-19-19 End: 04-02-19 take 800 mg by mouth three times daily as needed Ibuprofen Discontinued 800 MG PO 3 TIMES DAILY NEEDED 60 March 19, 2016 12:00am April 02, 2020 2:49pm ondansetron 4 mg disintegrating oral tablet (1 source) Serotonin-3 Receptor Antagonist Start: 02-21-20 End: 04-02-19 21 take 4 mg by mouth every eight hours as needed Ondansetron Discontinued 4 MG PO EVERY 8 HOURS NEEDED February 20, 2019 12:00am April 02, 2020 2:49pm Qedcrxxl-Hn-Txn-Fe-FA ( VITAMIN) Tab (4 sources) End: 11-26-19 take 1 tablet by mouth once Rruuwico-Wf-Eql-Fe-F A ( VITAMIN) Tab Take 1 tablet by mouth. 0 11/25/2021 Discontinued take 1 tablet by mouth once Pren atal Bxrlslpg-Vn-Abk-Fe-FA ( VITAMIN) Tab Take 1 tablet by mouth. 0 Active Comment on above: Take 1 tablet by yehuda th. Vit,Jxzm73-Ieio-Duj ic (1 source) Start: 06-08-2013 End: 04-02-2020 take 1 tablet by mouth once daily Vit,Rtqm89-Ojux-Otyji Discontinued 1 TABLET PO DAILY June 07, 2013 11:00pm April 02, 2020 2:49pm Problems Active Problems Problem Classification Problem Date Documented Da te Episodic/Chronic Disorders of lipid metabolism (20 sources) Hyperlipidemia; Translations: [Hyperlipidemia, unspecified] Onset: 07-23-2016 07-23-2016 Chronic Disorders of teeth and jaw (1 source) Toothache; Translations: [Other specified disorders of teeth and supporting structures] 05-04-2024 Episodic Inflammation; infection of eye (except that caused by tuberculosis or sexually transmitteddisease) (1 source) Blepharitis of right eyelid; Translations: [Unspecified blepharitis right eye, unspecified eyelid] 09-20-2013 Episodic Menstrual disorders (3 sources) Menorrhagia; Translations: [Excessive and frequent menstruation with regular cycle] 01-27-2023 Chronic Nonmalignant breast conditions (1 source) Cyst of left breast; Translations: [Solitary cyst of left breast] 04-20-2024 Episodic Other upper respiratory disease (20 sources) Allergic rhinitis; Translations: [Allergic rhinitis, unspecified] Onset: 08-19-2008 08-19-2008 Chronic Other upper respiratory infections (1 source) Chronic sinusitis, unspecified; Translations: [Unspecified sinusitis (chronic)] 05-04-2024 Chronic Unclassified (1 source) Patient encounter status 08-17-2024 Past or Other Problems Problem Classification Problem Date Documented Date Episodic/Chronic Biliary tract disease (11 sources) Calculus of common bile duct with chronic cholecystitis; Translations: [Calculus of bile duct with chronic cholecystitis without obstruction] Onset: 05-11-2009 Resolved: 03-03-2013 03-03-2013 Episodic Immunizations and screening for infectious disease (3 sources) Patient encounter status; Translations: [Encounter for screening for human papillomavirus (HPV)] Onset: 08-17-2024 04-05-2024 Episodic Other complications of ; puerperium affecting management of mother (11 sources) Advanced maternal age ; Translations: [Advanced maternal age (AMA) in ] Onset: 11-30-2012 Resolved: 08-18-2013 03-11-2021 Episodic Other complications of (20 sources) History of shoulder dystocia; Translations: [Supervision of with other poor reproductive or obstetric history, unspecified trimester] Onset: 11-30-2012 Resolved: 04-28-2016 03-11-2021 Episodic Other complications of (11 sources) Multigravida of advanced maternal age; Translations: [Supervision of elderly multigravida, first trimester] Onset: 08-09-2015 Resolved: 04-28-2016 03-11-2021 Episodic Other complications of (11 sources) High risk ; Translations: [Supervision of other high risk pregnancies, first trimester] Onset: 08-23-2015 Resolved: 04-28-2016 04-28-2016 Episodic Other inflammatory condition of skin (11 sources) Generalized pruritus ; Translations: [Pruritus, unspecified] Onset: 02-18-2012 Resolved: 03-03-2013 03-03-2013 Episodic Other and delivery including normal (20 sources) with uncertain dates; Translations: [Encounter for supervision of normal , unspecified, unspecified trimester] Onset: 11-30-2012 Resolved: 08-18-2013 03-11-2021 Episodic Other screening for suspected conditions (not mental disorders or infectious disease) (20 sources) Mammography abnormal; Translations: [Other abnormal and inconclusive findings on diagnostic imaging of breast] Onset: 04-06-2024 Episodic Residual codes; unclassified (20 sources) Abnormal cytology findings; Translations: [LSIL (low grade squamous intraepithelial lesion) on Pap smear] Onset: 03-26-2012 03-11-2021 Episodic Residual codes; unclassified (11 sources) FH: Chromosomal anomaly; Translations: [Family history of other congenital malformations, deformations and chromosomal abnormalities] Onset: 11-30-2012 Resolved: 08-18-2013 03-11-2021 Episodic Screening and history of mental health and substance abuse codes (20 sources) H/O: depression; Translations: [Personal history of other mental and behavioral disorders] Onset: 08-09-2015 03-11-2021 Episodic Results Test Name Value Interpretation Reference Range Facility [facility] 11-18-2024 [facility] Telephone (NELLY) AMANDA PATEL ([id number]) 1975 F Date Time Provider Department 11/18/24 GASPER RAMOS [facility] During your visit today, we recorded the following information about you: Heather Marley RN 11/18/2024 10:11 AM Signed Pt called asking about getting refilled on her Crestor. I let her know the provider called in a years worth of medication. Pt is going to call the pharmacy and have them refill it. I let her know she could ask them to put the medication so it auto-refills. Heather Marley RN Allergies As of Date: 11/18/2024 Noted Allergy Reaction PENICILLINS 02/26/2006 11 - Vomiting Comments: CHILDHOOD REACTION Date Reviewed: 08/17/2024 Reviewed by: Jaqueline Yousif - Fully Assessed Reason for Visit: Patient Question [0393] Prescriptions as of 11/18/2024 - rosuvastatin (CRESTOR) 5 mg tablet Take 1 tablet by mouth daily at bedtime. - HAIR, SKIN AND NAILS, BIOTIN, ORAL Take by mouth. - azithromycin (ZITHROMAX Z-VENUS) 250 mg tablet Take 2 tablets by mouth once daily for 1 day, then 1 tablet once daily for 4 days - ascorbic acid/collagen hydr (COLLAGEN SKIN RENEWAL ORAL) Take by mouth. - BIOTIN ORAL Take by mouth once daily. - docosahexaenoic acid/epa (FISH OIL ORAL) Take by mouth once daily. - mv,Ca,min/iron/FA/gua rana/caff (ONE-A-DAY WOMEN'S ACTIVE ORAL) Take by mouth. - diphenhydramine HCl (BENADRYL ORAL) Take by mouth. Problem List As Of Date 11/18/2024 Noted Resolved ALLERGIC RHINITIS NOS [J30.9] 08/19/2008 [...] adult exam [Z00.00] 11/25/2021 Encounter Status:Closed by HEATHER MARLEY on 11/18/24 Normal [facility] CNOVon 08-17-2024 CNOV Office Visit (FAMPWS ) AMANDA PATEL ([id number]) 1975 F Date Time Provider Department 08/17/24 8:40 AM IRENE BELTRÁN During your visit today, we recorded the following information about you: Temperature Pulse Respiration Blood pressure 97.5 degrees 69/minute 16/minute 122/82 Weight Height 54 kg 1.545 m Irene Beltrán PA-C 08/17/2024 11:26 AM Signed Chief Complaint Patient presents with: Yearly Exam HPI Amanda Melgar is a 49 year old female who presents here today for physical. She feels her L 4th digit PIP joint has become enlarged and is having trouble removing her ring. She denies injury/trauma, pain or locking of the digit. Otherwise patient is doing well. Patient with a PMHx of: Cholecystitis, Cholelithiasis, Hyperlipidemia Past medical history, appointments, medications, allergies reviewed. Previous Medical History PAST MEDICAL HISTORY Diagnosis Date Abnormal Pap smear of cervix Cholecystitis Cholelithiasis Dysthymic disorder Depression (non-psychotic) Hyperlipidemia 04/14/2012 Previous Surgical History PAST SURGICAL HISTORY Procedure Laterality Date HYSTEROSCOPY ENDOMETRIAL ABLATION 03/27/2023 Karen endometrial ablation LAPS SURG CHOLECYSTECTOMY W/CHOLANGIOGRAPHY 05/16/2009 PAST SURGICAL HISTORY OF RIGHT WRIST SURGERY X 2 TONSILLECTOMY PRIMARY/SECONDARY Tonsillectomy Family History FAMILY HISTORY Problem Relation Age of Onset Hypertension Mother Lipids Mother other (ADDISONS DISEASE) Mother Ischemic Heart Disease Mother Lipids Father Prostate Cancer Father Thyroid Brother Also Down's Syndrome other (pace maker) Brother Stroke Brother Lipids Brother Cancer Maternal Grandmother COPD Maternal Grandfather Breast Cancer Maternal Aunt Patient Allergies ALLERGIES Allergen Reactions Penicillins Vomiting CHILDHOOD REACTION Current Medications Current Outpatient Medications on File Prior to Visit Medication Sig HAIR, SKIN AND NAILS, BIOTIN, ORAL Take by mouth. ascorbic acid/collagen hydr (COLLAGEN SKIN RENEWAL ORAL) Take by mouth. BIOTIN ORAL Take by mouth once daily. docosahexaenoic acid/epa (FISH OIL ORAL) Take by mouth once daily. mv,Ca,min/iron/FA/gua rana/caff (ONE-A-DAY WOMEN'S ACTIVE ORAL) Take by mouth. diphenhydramine HCl (BENADRYL ORAL) Take by mouth. azithromycin (ZITHROMAX Z-VENUS) 250 mg tablet Take 2 tablets by mouth once daily for 1 day, then 1 tablet once daily for 4 days (Patient not taking: Reported on 08/17/2024) No current facility-administered medications on file prior to visit. Social History Social History Tobacco Use Smoking status: Never Smokeless tobacco: Never Vaping Use Vaping status: Never Used Substance Use Topics Alcohol use: Yes Comment: wine Drug use: No Review of Symptoms REVIEW OF SYSTEMS GENERAL: No weight loss, malaise or fevers HEENT: Negative for frequent or significant headaches, No changes in hearing or vision, no nose bleeds or other nasal problems NECK: Negative for lumps, goiter, pain and significant neck swelling RESPIRATORY: Negative for cough, hemoptysis, wheezing, COPD, dyspnea or shortness of breath CARDIOVASCULAR: Negative for chest pain, leg swelling, hypertension, CHF or palpitations GI: No nausea, vomiting, or diarrhea : No history of dysuria, frequency or incontinence MILL TENDER: Negative for abnormal vaginal bleeding, abnormal vaginal discharge MUSCULOSKELETAL: Negative for joint pain or swelling, back pain or muscle pain SKIN: Negative for lesions, rash, and itching PSYCH: Negative for sleep disturbance, mood disorder and recent psychosocial stressors HEMATOLOGY/LYMPHOLOGY : Negative for prolonged bleeding, bruising easily or swollen nodes ENDOCRINE: Negative for cold or heat intolerance, polyuria, polydipsia and goiter NEURO: No history of headaches, syncope, paralysis, seizures or tremors EXAM: BP 122/82 (BP Site: Right Arm, BP Position: Sitting, BP Cuff Size: Regular Adult) Pulse 69 Temp 36.4 ?C (97.5 ?F) Resp 16 Ht 154.5 cm (5' 0.83) Wt 54 kg (119 lb) LMP 03/11/2024 (Within Days) SpO2 96% BMI 22.61 kg/m? Skin: Skin color, texture, turgor normal, no suspicious rashes or lesions. Head: Normocephalic, no masses, lesions, tenderness or abnormalities. Eyes: Anicteric sclera. Pupils are equally round and reactive to light. Extraocular movements are intact. . Ears: External ears normal, canals clear. Nose/Sinuses: Nares normal, septum midline, mucosa normal, no drainage or sinus tenderness. Oropharynx: Lips, mucosa, and tongue normal, teeth and gums normal, oropharynx normal. Neck: Supple, no adenopathy; thyroid symmetric, normal size, no bruits. Lungs: Lungs clear to auscultation. No wheezing, rhonchi, rales.. Heart: RRR without murmur, gallop, or rubs. No ectopy. Abdomen: Normal abdomi (more content not included)... Normal [facility] Comprehensive metabolic 2000 panelon 08-17-2024 Albumin [Mass/Vol] 4.7 g/dL Normal 3.9-4.9 [facility] Comment on above: Order Comment: Speci men Type: BLOOD SPECIMENOrdering Facility: [facility] Address: [address] [place] [address] Performed By: #### L IPNF, 65444-3 ####[facility] LABCLIA [id number] [place] [address] [place] ALP [Catalytic activity/Vol] 60 U/L Normal 34-123 [facility] Comment on above: Order Comment: Speci men Type: BLOOD SPECIMENOrdering Facility: [facility] Address: [address] [place] [address] Performed By: #### L IPNF, ####[facility] LABCLIA [id number] [place] [address] [place] ALT [Catalytic activity/Vol] 27 U/L Normal 7-38 [facility] Comment on above: Order Comment: Speci men Type: BLOOD SPECIMENOrdering Facility: [facility] Address: [address] [place] [address] Performed By: #### L IPNF, 10564-6 ####[facility] LABCLIA [id number] [place] [address] [place] Anion gap [Moles/Vol] 12 mmol/L Normal 8-15 [facility] Comment on above: Order Comment: Speci men Type: BLOOD SPECIMENOrdering Facility: [facility] Address: [address] [place], [place] [id number] Performed By: #### L IPNF, 78126-1 ####[facility] LABCLIA [id number] [address] [address] [place] AST [Catalytic activity/Vol] 21 U/L Normal 13-35 [facility] Comment on above: Order Comment: Speci men Type: BLOOD SPECIMENOrdering Facility: [facility] Address: [address] [place], [place] [address] Performed By: #### L IPNF, 82318-7 ####[facility] LABCLIA [id number] [place] [address] [place] Bilirubin [Mass/Vol] 0.2 mg/dL Normal 0.2-1.3 [facility] Comment on above: Order Comment: Speci men Type: BLOOD SPECIMENOrdering Facility: [facility] Address: [address] [place], [place] [id number] Performed By: #### L IPNF, ####[facility] LABIA [id number] [place] [address] [place] Calcium [Mass/Vol] 9.7 mg/dL Normal 8.5-10.2 [facility] Comment on above: Order Comment: Speci men Type: BLOOD SPECIMENOrdering Facility: [facility] Address: [address] [place], [place] [id number] Performed By: #### L IPNF, ####[facility] LABCLIA [id number] [place] [id number] [place] Chloride [Moles/Vol] 106 mmol/L Normal 98-107 [facility] Comment on above: Order Comment: Speci men Type: BLOOD SPECIMENOrdering Facility: [facility] Address: [address] [place], [place] [address] Performed By: #### L IPNF, 95957-2 ####[facility] LABCLIA [id number] [address] [address] [place] CO2 [Moles/Vol] 23 mmol/L Normal 22-30 [facility] Comment on above: Order Comment: Speci men Type: BLOOD SPECIMENOrdering Facility: [facility] Address: [address] [place] [address] Performed By: #### L MARTÍN, ####[facility] LABCLIA [id number] [address] [address] [place] Creatinine [Mass/Vol] 0.72 mg/dL Normal 0.58-0.96 [facility] Comment on above: Order Comment: Speci men Type: BLOOD SPECIMENOrdering Facility: [facility] Address: [address] [place] [address] Performed By: #### L MARTÍN, ####[facility] LABCLIA [id number] [place] [id number] [place] Creatinine and Glomerular filtration rate.predicted panel (S/P/Bld) 103 mL/min/1.73m??? Normal >=60 [facility] Comment on above: Order Comment: Speci men Type: BLOOD SPECIMENOrdering Facility: [facility] Address: [address] [place] [address] Result Comment: [place] mated Glomerular Filtration Rate (eGFR) is calculated using the 2020 CKD-EPI creatinine equation. This equation utilizes serum creatinine, sex, and age as parameters. The creatinine assay has traceable calibration to isotope dilution-mass spectrometry. Refer to KDIGO guidelines for clinical interpretation. In patients with unstable renal function, e.g. those with acute kidney injury, the eGFR may not accurately reflect actual GFR. Performed By: #### L MARTÍN, ####[facility] LABCLIA [id number] [address] [address] [place] Glucose [Mass/Vol] 85 mg/dL Normal 74-99 [facility] Comment on above: Order Comment: Speci men Type: BLOOD SPECIMENOrdering Facility: [facility] Address: [address] [place] [address] Result Comment: The [place] Diabetes Association (ADA) provides guidance for cutoff values for fasting glucose and random glucose. The ADA defines fasting as no caloric intake for at least 8 hours. Fasting plasma glucose results between 100 to 125 mg/dL indicate increased risk for diabetes (prediabetes). Fasting plasma glucose results greater than or equal to 126 mg/dL meet the criteria for diagnosis of diabetes. In the absence of unequivocal hyperglycemia, results should be confirmed by repeat testing. In a patient with classic symptoms of hyperglycemia or hyperglycemic crisis, random plasma glucose results greater than or equal to 200 mg/dL meet the criteria for diagnosis of diabetes. Reference: Standards of Medical Care in Diabetes 2016, [place] [employer]. Diabetes Care. 2016.39(Suppl 1). Performed By: #### L IPNF, 86796-4 ####[facility] LABCLIA [id number] [place] [address] [place] Potassium [Moles/Vol] 4.8 mmol/L Normal 3.7-5.1 [facility] Comment on above: Order Comment: Speci men Type: BLOOD SPECIMENOrdering Facility: [facility] Address: [address] [place] [address] Performed By: #### L IPNF, 63696-0 ####[facility] LABCLIA [id number] [place] [address] [place] Protein [Mass/Vol] 7.3 g/dL Normal 6.3-8.0 [facility] Comment on above: Order Comment: Speci men Type: BLOOD SPECIMENOrdering Facility: [facility] Address: [address] [place] [address] Performed By: #### L IPNF, 31380-4 ####[facility] LABCLIA [id number] [place] [id number] [place] Sodium [Moles/Vol] 141 mmol/L Normal 136-144 [facility] Comment on above: Order Comment: Speci men Type: BLOOD SPECIMENOrdering Facility: [facility] Address: [address] [place] [address] Performed By: #### L IPNF, 55020-3 ####[facility] LABCLIA [id number] [place] [id number] [place] Urea nitrogen [Mass/Vol] 22 mg/dL High 7-21 [facility] Comment on above: Order Comment: Speci men Type: BLOOD SPECIMENOrdering Facility: [facility] Address: [address] [place] [address] Performed By: #### L IPNF, 98145-4 ####[facility] LABCLIA [id number] [place] [address] [place] HCV Ab Ql (S)on 08-17-2024 Interpretation and review of laboratory results Normal [facility] HCV Ab Ser Qlon 08-17-2024 HCV Ab Ql (S) Negative Normal Negative [facility] Comment on above: Order Comment: Speci men Type: BLOOD SPECIMENOrdering Facility: [facility] Address: [address] [place] [address] Result Comment: The result suggests no evidence of infection with Hepatitis C virus. Should recent infection be suspected, repeat testing may be considered 4-6 weeks after this draw. Performed By: #### 1 6128-1 ####[facility] LABCLIA [id number] [place] [address] [place] HEPATITIS C ANTIBODY IA WITH CONFIRMATIONon 08-17-2024 HCV Ab Ql (S) Negative Negative [facility] Comment on above: The result suggests no evidence of infection with Hepatitis C virus. Should recent infection be suspected, repeat testing may be considered 4-6 weeks after this draw. HbA1c (Bld)on 08-17-2024 Average glucose Estimated from glycated hemoglobin (Bld) [Mass/Vol] 100 mg/dL [facility] Comment on above: eAG: (Estimated aver age glucose) is a calculated value from HgbA1c and is union representative of the average blood glucose level in the last 2-3 month period. HbA1c (Bld) [Mass fraction] 5.1 % 4.3 - 5.6 % [facility] Comment on above: [place] Diabetes As sociation guidelines indicate that patients with HgbA1c in the range 5.7-6.4% are at increased risk for development of diabetes, and intervention by lifestyle modification may be beneficial. HgbA1c greater or equal to 6.5% is considered diagnostic of diabetes. [facility] Average glucose Estimated from glycated hemoglobin (Bld) [Mass/Vol] 100 mg/dL Normal [facility] Comment on above: Order Comment: Raj jenkins Type: BLOOD SPECIMENOrdering Facility: [facility] Address: [address] [place] [address] Result Comment: eAG: (Estimated average glucose) is a calculated value from HgbA1c and is union representative of the average blood glucose level in the last 2-3 month period. Performed By: #### 5 5454-3 ####[facility] LABCLIA [id number] [place] [address] [place] HbA1c (Bld) [Mass fraction] 5.1 % Normal 4.3-5.6 [facility] Comment on above: Order Comment: Raj jenkins Type: BLOOD SPECIMENOrdering Facility: [facility] Address: [address] [place] [address] Result Comment: Amer ican Diabetes Association guidelines indicate that patients with HgbA1c in the range 5.7-6.4% are at increased risk for development of diabetes, and intervention by lifestyle modification may be beneficial. HgbA1c greater or equal to 6.5% is considered diagnostic of diabetes. Performed By: #### 5 5454-3 ####[facility] LABCLIA [id number] [address] [address] [place] LIPID PANEL, NONFASTINGon Cholesterol [Mass/Vol] 296 mg/dL High <200 [facility] Comment on above: Order Comment: Raj jenkins Type: BLOOD SPECIMENOrdering Facility: [facility] Address: [address] [place] [address] Result Comment: <200 mg/dL, Desirable 200-239 mg/dL, Borderline high >239 mg/dL, High Performed By: #### L IPNF, 42082-7 ####[facility] LABCLIA [id number] [address] [place] HDL CHOLESTEROL, NF 70 mg/dL Normal >39 [facility] Comment on above: Order Comment: Speci alice Type: BLOOD SPECIMENOrdering Facility: [facility] Address: [address] [place] [address] Result Comment: 40-5 9 mg/dL, Acceptable >59 mg/dL, High: Negative risk factor for coronary heart disease <40 mg/dL, Low: Positive risk factor for coronary heart disease Performed By: #### L IPMATHEW, ####[facility] LABCLIA [id number] [address] LDL CHOLESTEROL CALCULATED, NF 217 mg/dL High <100 [facility] Comment on above: Order Comment: Raj [facility] Type: BLOOD SPECIMENOrdering Facility: [facility] Address: [address] [place] [address] Result Comment: <100 mg/dL, Optimal 100-129 mg/dL, Near optimal/above optimal 130-159 mg/dL, Borderline high 160-189 mg/dL, High >189 mg/dL, Very high Secondary prevention optimal LDL Cholesterol levels are recommended to be <70 mg/dL LDL cholesterol is calculated using the Moreno-NIH equation. Performed By: #### L AMRTÍN, ####[facility] LABIA [id number] [address] [place] LDL/HDL RATIO, NF 3.10 mg/dL High <2.54 [facility] Comment on above: Order Comment: Raj jenkins Type: BLOOD SPECIMENOrdering Facility: [facility] Address: [address] [place] [address] Result Comment: Refe rence: 1. National Cholesterol Education Program ATP III Guideline At-A-Glance Quick Desk Reference: National Heart, Lung, and Blood Lamar. National Institutes of Health. 2001: NIH Publication No. 01-3305. 2. An International Atherosclerosis Society position paper: global recommendations for the management of dyslipidemia: executive summary, Atherosclerosis. 2014: 232(2):410-413. Performed By: #### L MARTÍN, 85466-3 ####[facility] LABCLIA [id number] [place] [id number] [place] NON HDL CHOL, NF 226 mg/dL High <[address] [facility] Comment on above: Order Comment: Speci men Type: BLOOD SPECIMENOrdering Facility: [facility] Address: [address] [place] [address] Result Comment: <130 mg/dL, Optimal 130-159 mg/dL, Near optimal/above optimal 160-189 mg/dL, Borderline high 190-219 mg/dL, High >219 mg/dL, Very high Secondary prevention optimal non HDL Cholesterol levels are recommended to be <100 mg/dL Performed By: #### L MARTÍN, ####[facility] LABCLIA [id number] [address] [place] T CHOL/HDL RATIO NF 4.23 mg/dL Normal <5.10 [facility] Comment on above: Order Comment: Maryi men Type: BLOOD SPECIMENOrdering Facility: [facility] Address: [address] [place] [address] Performed By: #### L IPMATHEW, ####[facility] LABCLIA [id number] [place] [address] [place] TRIGLYCERIDES, NF 62 mg/dL Normal <150 [facility] Comment on above: Order Comment: Maryi men Type: BLOOD SPECIMENOrdering Facility: [facility] Address: [address] [place] [address] Result Comment: <150 mg/dL, Normal 150-199 mg/dL, Borderline high 200-499 mg/dL, High >499 mg/dL, Very high Performed By: #### L IPNF, 33917-5 ####[facility] LABCLIA [id number] [place] [address] [place] VLDL CHOLESTEROL, NF 13 mg/dL Normal <30 [facility] Comment on above: Order Comment: Speci men Type: BLOOD SPECIMENOrdering Facility: [facility] Address: [address] [place] [address] Performed By: #### L IPNF, 34551-0 ####[facility] LABCLIA [id number] [address] [place] CNOVon 05-04-2024 CNOV Office Visit (UCWSTR ) AMANDA PATEL ([id number]) 1975 F Date Time Provider Department 05/04/24 6:30 PM ZENY SKAGGS [facility] During your visit today, we recorded the following information about you: Temperature Pulse Respiration Blood pressure 97 degrees 78/minute 16/minute 122/68 Weight 55.2 kg Zeny Skaggs APRN.RESIDENTIAL TEAM LEADER 05/04/2024 7:21 PM Signed This note was created using NoteWriter. Subjective Amanda Melgar is a 49 year old female. 49 year old female with PMH hyperlipidemia, depression, presents for facial complaints Acute onset X 1 day Right upper teeth +sharp +aching +right sinus pressure Of note, she was at the dentist 2 weeks ago Used Mucinex spray Denies tobacco usage The history is provided by the patient. No second language tutor was used. Sinus Problem This is a new problem. The current episode started yesterday. The problem occurs constantly. The problem has been unchanged. Pertinent negatives include no abdominal pain, anorexia, arthralgias, change in bowel habit, chest pain, chills, congestion, coughing, diaphoresis, fatigue, fever, headaches, joint swelling, myalgias, nausea, neck pain, numbness, rash, sore throat, swollen glands, urinary symptoms, vertigo, visual change, vomiting or weakness. Nothing aggravates the symptoms. She has tried nothing for the symptoms. The treatment provided no relief. PAST MEDICAL HISTORY Diagnosis Date Abnormal Pap smear of cervix Cholecystitis Cholelithiasis Dysthymic disorder Depression (non-psychotic) Hyperlipidemia 04/14/2012 PAST SURGICAL HISTORY Procedure Laterality Date HYSTEROSCOPY ENDOMETRIAL ABLATION 03/27/2023 Karen endometrial ablation LAPS SURG CHOLECYSTECTOMY W/CHOLANGIOGRAPHY 05/16/2009 PAST SURGICAL HISTORY OF RIGHT WRIST SURGERY X 2 TONSILLECTOMY PRIMARY/SECONDARY Tonsillectomy ALLERGIES Penicillins MEDICATIONS azithromycin (ZITHROMAX Z-VENUS) 250 mg tablet Take 2 tablets by mouth once daily for 1 day, then 1 tablet once daily for 4 days ascorbic acid/collagen hydr (COLLAGEN SKIN RENEWAL ORAL) Take by mouth. BIOTIN ORAL Take by mouth once daily. docosahexaenoic acid/epa (FISH OIL ORAL) Take by mouth once daily. mv,Ca,min/iron/FA/gua rana/caff (ONE-A-DAY WOMEN'S ACTIVE ORAL) Take by mouth. diphenhydramine HCl (BENADRYL ORAL) Take by mouth. FAMILY HISTORY Problem Relation Age of Onset Hypertension Mother Lipids Mother other (ADDISONS DISEASE) Mother Ischemic Heart Disease Mother Lipids Father Prostate Cancer Father Thyroid Brother Also Down's Syndrome other (pace maker) Brother Stroke Brother Lipids Brother Cancer Maternal Grandmother COPD Maternal Grandfather Breast Cancer Maternal Aunt Social History Tobacco Use Smoking status: Never Smokeless tobacco: Never Vaping Use Vaping status: Never Used Substance Use Topics Alcohol use: Yes Comment: wine Drug use: No Review of Systems Constitutional: Negative for chills, diaphoresis, fatigue and fever. HENT: Negative for congestion and sore throat. Eyes: Negative for pain, discharge, redness and itching. Respiratory: Negative for cough. Cardiovascular: Negative for chest pain. Gastrointestinal: Negative for abdominal pain, anorexia, change in bowel habit, nausea and vomiting. Musculoskeletal: Negative for arthralgias, joint swelling, myalgias and neck pain. Skin: Negative for color change, pallor and rash. Allergic/Immunologic: Negative for environmental allergies, food allergies and immunocompromised state. Neurological: Negative for dizziness, vertigo, facial asymmetry, weakness, numbness and headaches. Hematological: Negative for adenopathy. Does not bruise/bleed easily. Psychiatric/Behaviora l: Negative for agitation and behavioral problems. Objective BP 122/68 Pulse 78 Temp 36.1 ?C (97 ?F) Resp 16 Wt 55.2 kg (121 lb 11.1 oz) LMP 03/11/2024 (Within Days) SpO2 96% BMI 23.57 kg/m? Physical Exam Vitals and nursing note reviewed. Constitutional: General: She is not in acute distress. Appearance: Normal appearance. She is normal weight. She is not ill-appearing, toxic-appearing or diaphoretic. HENT: Head: Normocephalic and atraumatic. Comments: Right maxillary TTP Right Ear: Ear canal and external ear normal. Left Ear: Ear canal and external ear normal. Nose: Nose normal. No congestion or rhinorrhea. Mouth/Throat: Mouth: Mucous membranes are moist. Pharynx: No oropharyngeal exudate or posterior oropharyngeal erythema. Comments: Right upper dentition with generalized TTP Gums inflamed Uvula midline Handling secretions Eyes: General: Right eye: No discharge. Left eye: No discharge. Extraocular Movements: Extraocular movements intact. Conjunctiva/sclera: Conjunctivae normal. Pupils: Pupils are equal, round, and reactive to light. Ca (more content not included)... Normal [facility] 04-20-2024 [facility] AMANDA PATEL ([id number]) 1975 F Date Time Provider Department 04/20/24 IRENE BELTRÁN [facility] During your visit today, we recorded the following information about you: Irene Beltrán PA-C 04/20/2024 10:57 AM Signed Let patient know that additional view of breast show a complex cyst. Likely benign but requires repeat imaging in 6 months to confirm Also patient is past due for physical with PCP team. MIGEL Higuera Sherill A, LPN 04/20/2024 12:55 PM Signed Pt notified of results and instructions. Pt verbalizes understanding. Pt will call back at a later date to schedule US. Physical appointment scheduled at this time. Pedro Rangel LPN Allergies As of Date: 04/20/2024 Noted Allergy Reaction PENICILLINS 02/26/2006 11 - Vomiting Comments: CHILDHOOD REACTION Date Reviewed: 04/05/2024 Reviewed by: Winston Sanderson MD - Fully Assessed Reason for Visit: Results [95] Primary Visit Diagnosis:Cyst of left breast [N60.02] Other Visit Diagnosis:Abnormal mammogram [R92.8] Order(s):[email or web address] LEFT [[id number]] Order #: [id number] FUTURE [facility] MAYCO JOHNS LEFT [[id number]] Order #: [id number] FUTURE Prescriptions as of 04/20/2024 - ascorbic acid/collagen hydr (COLLAGEN SKIN RENEWAL ORAL) Take by mouth. - BIOTIN ORAL Take by mouth once daily. - docosahexaenoic acid/epa (FISH OIL ORAL) Take by mouth once daily. - mv,Ca,min/iron/FA/gua rana/caff (ONE-A-DAY WOMEN'S ACTIVE ORAL) Take by mouth. - diphenhydramine HCl (BENADRYL ORAL) Take by mouth. Problem List As Of Date 04/20/2024 Noted Resolved ALLERGIC RHINITIS NOS [J30.9] 08/19/2008 [...] adult exam [Z00.00] 11/25/2021 Encounter Status:Closed by PEDRO RANGEL on 04/20/24 Normal [facility] DBT Breast - left diagnostic for implanton 04-20-2024 IMPRESSION: Complicated cyst in the left breast is probably benign. A follow-up in 6 months is recommended. BI-RADS Category 3: Probably Benign RISK: Based on the Tyrer-Cuzick (TC) risk assessment model, this patient has a 8.3% lifetime risk of developing breast cancer, meaning they are at average risk for developing breast cancer. However, this is only an estimate based on available history provided on the patient's questionnaire. We encourage all patients to talk with their providers about these results, further recommendations for managing breast health, and appropriate supplemental screening options if the patient has dense breast tissue. Interpreting Radiologist: Marques Carmona M.D. Electronically signed on: 04/20/2024 Train Master: DEISI Transcribe Date/Time: Apr 20 2024 9:44A Dictated by: MARQUES CARMONA MD This examination was interpreted and the report reviewed and electronically signed by: MARQUES CARMONA MD on Apr 20 2024 10:29AM [facility] DIVISION OF RADIOLOGY * * *Final Report* * * DATE OF EXAM: Apr 20 2024 9:52AM [facility] 0628 - [facility] MAYCO JOHNS LT / PROCEDURE REASON: Abnormal mammogram * * * * Physician Interpretation * * * * RESULT: [place] [address] [place] [address] #[id number] - [facility] MAYCO W ANDREAS LT #[id number] - [facility] [employer] BREAST LTD HISTORY: 49 year-old patient seen for diagnostic evaluation of the finding(s) described on prior mammogram in the left breast. Patient states no personal history of breast cancer. Patient states no personal history of other cancers. COMPARISON STUDIES: The present examination has been compared to prior imaging studies dated 03/27/2020 (mammogram), 04/25/2021 (mammogram), 06/04/2021 (ultrasound), 06/04/2021 (mammogram) and 04/06/2024 (mammogram). MAMMOGRAM TECHNIQUE: The study was acquired using full field digital technology and interpreted from soft copy. Digital Breast Tomosynthesis (DBT) images were obtained and used to assist in the interpretation of this examination. MAMMOGRAM FINDINGS: The breast is heterogeneously dense, which may obscure small masses. There is a focal asymmetry measuring 0.6 cm with obscured margins in the left breast upper outer quadrant at 2 o'clock. ULTRASOUND TECHNIQUE: Targeted ultrasound of the indicated area was performed. Erwin scale images were saved. ULTRASOUND FINDINGS: Ultrasound demonstrates an oval complicated cyst measuring 0.6 cm in the left breast upper outer quadrant at 2 o'clock. Internal echotexture is hypoechoic. Color flow imaging demonstrates vascularity is not present. DIVISION OF RADIOLOGY Provider, [facility] - 04/20/2024 * * *Final Report* * * DATE OF EXAM: Apr 20 2024 9:52AM [facility] 0628 - [facility] YELENAG W ANDREAS LT / PROCEDURE REASON: Abnormal mammogram * * * * Physician Interpretation * * * * RESULT: [place] [address] #[id number] - [facility] LT #[id number] - [facility] BREAST LTD LT HISTORY: 49 year-old patient seen for diagnostic evaluation of the finding(s) described on prior mammogram in the left breast. Patient states no personal history of breast cancer. Patient states no personal history of other cancers. COMPARISON STUDIES: The present examination has been compared to prior imaging studies dated 03/27/2020 (mammogram), 04/25/2021 (mammogram), 06/04/2021 (ultrasound), 06/04/2021 (mammogram) and 04/06/2024 (mammogram). MAMMOGRAM TECHNIQUE: The study was acquired using full field digital technology and interpreted from soft copy. Digital Breast Tomosynthesis (DBT) images were obtained and used to assist in the interpretation of this examination. MAMMOGRAM FINDINGS: The breast is heterogeneously dense, which may obscure small masses. There is a focal asymmetry measuring 0.6 cm with obscured margins in the left breast upper outer quadrant at 2 o'clock. ULTRASOUND TECHNIQUE: Targeted ultrasound of the indicated area was performed. Erwin scale images were saved. ULTRASOUND FINDINGS: Ultrasound demonstrates an oval complicated cyst measuring 0.6 cm in the left breast upper outer quadrant at 2 o'clock. Internal echotexture is hypoechoic. Color flow imaging demonstrates vascularity is not present. IMPRESSION IMPRESSION: Complicated cyst in the left breast is probably benign. A follow-up in 6 months is recommended. BI-RADS Category 3: Probably Benign RISK: Based on the Tyrer-Cuzick (TC) risk assessment model, this patient has a 8.3% lifetime risk of developing breast cancer, meaning they are at average risk for developing breast cancer. However, this is only an estimate based on available history provided on the patient's questionnaire. We encourage all patients to talk with their providers about these results, further recommendations for managing breast health, and appropriate supplemental screening options if the patient has dense breast tissue. Interpreting Radiologist: Marques Carmona M.D. Electronically signed on: 04/20/2024 Train Master: DEISI Transcribe Date/Time: Apr 20 2024 9:44A Dictated by: MARQUES CARMONA MD This examination was interpreted and the report reviewed and electronically signed by: MARQUES CARMONA MD on Apr 20 2024 10:29AM EST [facility] DBT Breast - left diagnostic for implantOrdered By: Ccf Provider on 04-20-2024 [facility] LILA DIAG W ANDREAS LTon 025 [facility] W ANDREAS LT * * *Final Report* * * DATE OF EXAM: Apr 20 2024 9:52AM [facility] 0628 - [facility] W ANDREAS LT / PROCEDURE REASON: Abnormal mammogram * * * * Physician Interpretation * * * * RESULT: [place] [id number] #[id number] - [facility] W ANDREAS LT #[id number] - [facility] US BREAST LTD LT HISTORY: 49 year-old patient seen for diagnostic evaluation of the finding(s) described on prior mammogram in the left breast. Patient states no personal history of breast cancer. Patient states no personal history of other cancers. COMPARISON STUDIES: The present examination has been compared to prior imaging studies dated 03/27/2020 (mammogram), 04/25/2021 (mammogram), 06/04/2021 (ultrasound), 06/04/2021 (mammogram) and 04/06/2024 (mammogram). MAMMOGRAM TECHNIQUE: The study was acquired using full field digital technology and interpreted from soft copy. Digital Breast Tomosynthesis (DBT) images were obtained and used to assist in the interpretation of this examination. MAMMOGRAM FINDINGS: The breast is heterogeneously dense, which may obscure small masses. There is a focal asymmetry measuring 0.6 cm with obscured margins in the left breast upper outer quadrant at 2 o'clock. ULTRASOUND TECHNIQUE: Targeted ultrasound of the indicated area was performed. Erwin scale images were saved. ULTRASOUND FINDINGS: Ultrasound demonstrates an oval complicated cyst measuring 0.6 cm in the left breast upper outer quadrant at 2 o'clock. Internal echotexture is hypoechoic. Color flow imaging demonstrates vascularity is not present. IMPRESSION: Complicated cyst in the left breast is probably benign. A follow-up in 6 months is recommended. BI-RADS Category 3: Probably Benign RISK: Based on the Tyrer-Cuzick (TC) risk assessment model, this patient has a 8.3% lifetime risk of developing breast cancer, meaning they are at average risk for developing breast cancer. However, this is only an estimate based on available history provided on the patient's questionnaire. We encourage all patients to talk with their providers about these results, further recommendations for managing breast health, and appropriate supplemental screening options if the patient has dense breast tissue. Interpreting Radiologist: Marques Carmona M.D. Electronically signed on: 04/20/2024 Train Master: DEISI Transcribe Date/Time: Apr 20 2024 9:44A Dictated by: MARQUES CARMONA MD This examination was interpreted and the report reviewed and electronically signed by: MARQUES CARMONA MD on Apr 20 2024 10:29AM EST [id number] Normal [facility] BREAST LTD LTon 04-20 [facility] LT * * *Final Report* * * DATE OF EXAM: Apr 20 2024 10:19AM [facility] [id number] - [facility] LT / PROCEDURE REASON: Abnormal mammogram * * * * Physician Interpretation * * * * [place] [address] #[id number] - [facility] MAYCO JOHNS LT #[id number] - [email or web address] LT HISTORY: 49 year-old patient seen for diagnostic evaluation of the finding(s) described on prior mammogram in the left breast. Patient states no personal history of breast cancer. Patient states no personal history of other cancers. COMPARISON STUDIES: The present examination has been compared to prior imaging studies dated 03/27/2020 (mammogram), 04/25/2021 (mammogram), 06/04/2021 (ultrasound), 06/04/2021 (mammogram) and 04/06/2024 (mammogram). MAMMOGRAM TECHNIQUE: The study was acquired using full field digital technology and interpreted from soft copy. Digital Breast Tomosynthesis (DBT) images were obtained and used to assist in the interpretation of this examination. MAMMOGRAM FINDINGS: The breast is heterogeneously dense, which may obscure small masses. There is a focal asymmetry measuring 0.6 cm with obscured margins in the left breast upper outer quadrant at 2 o'clock. ULTRASOUND TECHNIQUE: Targeted ultrasound of the indicated area was performed. Eriwn scale images were saved. ULTRASOUND FINDINGS: Ultrasound demonstrates an oval complicated cyst measuring 0.6 cm in the left breast upper outer quadrant at 2 o'clock. Internal echotexture is hypoechoic. Color flow imaging demonstrates vascularity is not present. IMPRESSION: Complicated cyst in the left breast is probably benign. A follow-up in 6 months is recommended. BI-RADS Category 3: Probably Benign RISK: Based on the Tyrer-Cuzick (TC) risk assessment model, this patient has a 8.3% lifetime risk of developing breast cancer, meaning they are at average risk for developing breast cancer. However, this is only an estimate based on available history provided on the patient's questionnaire. We encourage all patients to talk with their providers about these results, further recommendations for managing breast health, and appropriate supplemental screening options if the patient has dense breast tissue. Interpreting Radiologist: Marques Carmona M.D. Electronically signed on: 04/20/2024 Train Master: DEISI Transcrigoran Date/Time: Apr 20 2024 10:08A Dictated by : MARQUES CARMONA MD This examination was interpreted and the report reviewed and electronically signed by: MARQUES CARMONA MD on Apr 20 2024 10:29AM EST [id number] N Normal [facility] No Panel Informationon 04-20 Radiology Study observation (narrative) [facility] US Breast - left limitedon 0 04-20-2024 IMPRESSION: Complicated cyst in the left breast is probably benign. A follow-up in 6 months is recommended. BI-RADS Category 3: Probably Benign RISK: Based on the Tyrer-Cuzick (TC) risk assessment model, this patient has a 8.3% lifetime risk of developing breast cancer, meaning they are at average risk for developing breast cancer. However, this is only an estimate based on available history provided on the patient's questionnaire. We encourage all patients to talk with their providers about these results, further recommendations for managing breast health, and appropriate supplemental screening options if the patient has dense breast tissue. Interpreting Radiologist: Marques Carmona M.D. Electronically signed on: 04/20/2024 Train Master: DEISI Hermosillorigoran Date/Time: Apr 20 2024 10:08A Dictated by : MARQUES CARMONA MD This examination was interpreted and the report reviewed and electronically signed by: MARQUES CARMONA MD on Apr 20 2024 10:29AM EST DIVISION OF RADIOLOGY * * *Final Report* * * DATE OF EXAM: Apr 20 2024 10:19AM U 0593 - [facility] [place] [employer] / PROCEDURE REASON: Abnormal mammogram * * * * Physician Interpretation * * * * [address] [address] [place] [address] #[id number] - LILA DIAG W ANDREAS LT #[id number] - [facility] [place] [employer] HISTORY: 49 year-old patient seen for diagnostic evaluation of the finding(s) described on prior mammogram in the left breast. Patient states no personal history of breast cancer. Patient states no personal history of other cancers. COMPARISON STUDIES: The present examination has been compared to prior imaging studies dated 03/27/2020 (mammogram), 04/25/2021 (mammogram), 06/04/2021 (ultrasound), 06/04/2021 (mammogram) and 04/06/2024 (mammogram). MAMMOGRAM TECHNIQUE: The study was acquired using full field digital technology and interpreted from soft copy. Digital Breast Tomosynthesis (DBT) images were obtained and used to assist in the interpretation of this examination. MAMMOGRAM FINDINGS: The breast is heterogeneously dense, which may obscure small masses. There is a focal asymmetry measuring 0.6 cm with obscured margins in the left breast upper outer quadrant at 2 o'clock. ULTRASOUND TECHNIQUE: Targeted ultrasound of the indicated area was performed. Erwin scale images were saved. ULTRASOUND FINDINGS: Ultrasound demonstrates an oval complicated cyst measuring 0.6 cm in the left breast upper outer quadrant at 2 o'clock. Internal echotexture is hypoechoic. Color flow imaging demonstrates vascularity is not present. DIVISION OF RADIOLOGY Provider, [facility] - 04/20/2024 * * *Final Report* * * DATE OF EXAM: Apr 20 2024 10:19AM U 0593 - [facility] [place] [employer] / PROCEDURE REASON: Abnormal mammogram * * * * Physician Interpretation * * * * [place] [address] #[id number] - [facility] MAYCO Dang ANDREAS #[id number] - [facility] [place] [employer] LT HISTORY: 49 year-old patient seen for diagnostic evaluation of the finding(s) described on prior mammogram in the left breast. Patient states no personal history of breast cancer. Patient states no personal history of other cancers. COMPARISON STUDIES: The present examination has been compared to prior imaging studies dated 03/27/2020 (mammogram), 04/25/2021 (mammogram), 06/04/2021 (ultrasound), 06/04/2021 (mammogram) and 04/06/2024 (mammogram). MAMMOGRAM TECHNIQUE: The study was acquired using full field digital technology and interpreted from soft copy. Digital Breast Tomosynthesis (DBT) images were obtained and used to assist in the interpretation of this examination. MAMMOGRAM FINDINGS: The breast is heterogeneously dense, which may obscure small masses. There is a focal asymmetry measuring 0.6 cm with obscured margins in the left breast upper outer quadrant at 2 o'clock. ULTRASOUND TECHNIQUE: Targeted ultrasound of the indicated area was performed. Erwin scale images were saved. ULTRASOUND FINDINGS: Ultrasound demonstrates an oval complicated cyst measuring 0.6 cm in the left breast upper outer quadrant at 2 o'clock. Internal echotexture is hypoechoic. Color flow imaging demonstrates vascularity is not present. IMPRESSION IMPRESSION: Complicated cyst in the left breast is probably benign. A follow-up in 6 months is recommended. BI-RADS Category 3: Probably Benign RISK: Based on the Tyrer-Cuzick (TC) risk assessment model, this patient has a 8.3% lifetime risk of developing breast cancer, meaning they are at average risk for developing breast cancer. However, this is only an estimate based on available history provided on the patient's questionnaire. We encourage all patients to talk with their providers about these results, further recommendations for managing breast health, and appropriate supplemental screening options if the patient has dense breast tissue. Interpreting Radiologist: Marques Carmona M.D. Electronically signed on: 04/20/2024 Train Master: DEISI Transcribe Date/Time: Apr 20 2024 10:08A Dictated by : MARQUES CARMONA MD This examination was interpreted and the report reviewed and electronically signed by: MARQUES CARMONA MD on Apr 20 2024 10:29AM EST [facility] US Breast - left limitedOrde red By: Cc Provider on 04-20-2024 [facility]07[facility]20[facility] AMANDA PATEL ([id number]) 1975 F Date Time Provider Department 04/07/24 IRENE BELTRÁN During your visit today, we recorded the following information about you: Irene Beltrán PA-C 04/07/2024 9:24 AM Signed There is some asymmetry in left breast on mammogram. Additional views needed. Orders placed. Pedro Rangel LPN 04/07/2024 9:40 AM Signed Pt notified of same. Pt verbalizes understanding. Pt was assisted in transfer to schedule appointment. Pedro Rangel LPN Allergies As of Date: 04/07/2024 Noted Allergy Reaction PENICILLINS 02/26/2006 11 - Vomiting Comments: CHILDHOOD REACTION Date Reviewed: 04/05/2024 Reviewed by: Winston Sanderson MD - Fully Assessed Reason for Visit: Results [95] Primary Visit Diagnosis:Abnormal mammogram [R92.8] Order(s):[facility] LEFT [[id number]] Order #: [id number] FUTURE [facility] MAYCO JOHNS LEFT [[id number]] Order #: [id number] FUTURE Prescriptions as of 04/07/2024 - ascorbic acid/collagen hydr (COLLAGEN SKIN RENEWAL ORAL) Take by mouth. - BIOTIN ORAL Take by mouth once daily. - docosahexaenoic acid/epa (FISH OIL ORAL) Take by mouth once daily. - mv,Ca,min/iron/FA/gua rana/caff (ONE-A-DAY WOMEN'S ACTIVE ORAL) Take by mouth. - diphenhydramine HCl (BENADRYL ORAL) Take by mouth. Problem List As Of Date 04/07/2024 Noted Resolved ALLERGIC RHINITIS NOS [J30.9] 08/19/2008 [...] adult exam [Z00.00] 11/25/2021 Encounter Status:Closed by PEDRO RANGEL on 04/07/24 Normal [facility] LILA SCREENING W TOMOon 04-06 LILA SCREENING W ANDREAS * * *Final Report* * * DATE OF EXAM: Apr 06 2024 11:22AM [id number] - LILA SCREENING W ANDREAS / PROCEDURE REASON: Encounter for screening mammogram for breast cancer * * * * Physician Interpretation * * * * RESULT: [place] [address] #[id number] - LILA SCREENING W ANDREAS HISTORY: Patient is 49 years old and is seen for screening and is asymptomatic in both breasts. Patient states no personal history of breast cancer. Patient states no personal history of other cancers. COMPARISON STUDIES: The present examination has been compared to prior imaging studies dated 02/03/2020 (mammogram), 04/25/2021 (mammogram), 06/04/2021 (ultrasound) and 06/04/2021 (mammogram). MAMMOGRAM TECHNIQUE: The study was acquired using full field digital technology and interpreted from soft copy. Digital Breast Tomosynthesis (DBT) images were obtained and used to assist in the interpretation of this examination. MAMMOGRAM FINDINGS: The breasts are heterogeneously dense, which may obscure small masses. There is an asymmetry in the lateral left breast, middle depth. This is best visualized on tomosynthesis CC view slice # 14. No suspicious masses, calcifications or other abnormalities are seen in the right breast. IMPRESSION: The asymmetry in the left breast requires additional evaluation. Diagnostic mammogram with possible ultrasound is recommended. BI-RADS Category 0: Incomplete: Needs Additional Imaging Evaluation RISK: Based on the Tyrer-Cuzick (TC) risk assessment model, this patient has a 8.1% lifetime risk of developing breast cancer, meaning they are at average risk for developing breast cancer. However, this is only an estimate based on available history provided on the patient's questionnaire. We encourage all patients to talk with their providers about these results, further recommendations for managing breast health, and appropriate supplemental screening options if the patient has dense breast tissue. Interpreting Radiologist: Margaret Dailey M.D. Electronically signed on: 04/07/2024 Train Master: DEISI Transcribe Date/Time: Apr 06 2024 11:04A Dictated by: MARGARET DAILEY MD This examination was interpreted and the report reviewed and electronically signed by: MARGARET DAILEY MD on Apr 07 2024 7:00AM EST [id number] N Normal [facility] CNOVon 04-05-2024 CNOV Office Visit (OBGYWM ) ELADIA MELGARAMANDA ([id number]) 1975 F Date Time Provider Department 04/05/24 2:20 PM WINSTON SANDERSON OBGYWM During your visit today, we recorded the following information about you: Blood pressure Weight Height Last Period 108 54.4 kg 1.53 m 03/11/24 Winston Sanderson MD 04/05/2024 2:40 PM Signed Amanda is a 49 year old who presents for an annual gynecologic exam without complaints. Menses: rare, had ablation Menstrual flow: Light Bleeding amount bothersome: No Sexually active: No Last mammogram: ordered Sexually active: Yes OB History T4 L4 SAB0 IAB0 Ectopic0 Multiple0 Live Births4 Comment: Baby girl Baby's name is Paulina Cell Operator History LMP: 03/11/2024 (Within Days), Ablation Age at Menarche: Age at First : Age at Menopause: Cell Operator History Comments: Sexual Activity: Yes; Male; hsuband had vasectomy Contraception: Vasectomy PAST MEDICAL HISTORY Diagnosis Date Abnormal Pap smear of cervix Cholecystitis Cholelithiasis Dysthymic disorder Depression (non-psychotic) Hyperlipidemia 04/14/2012 PAST SURGICAL HISTORY Procedure Laterality Date HYSTEROSCOPY ENDOMETRIAL ABLATION 03/27/2023 Karen endometrial ablation LAPS SURG CHOLECYSTECTOMY W/CHOLANGIOGRAPHY 05/16/2009 PAST SURGICAL [...] Never Smokeless tobacco: Never Vaping Use Vaping status: Never Used Substance Use Topics Alcohol use: Yes Comment: wine Drug use: No REVIEW OF SYSTEMS Abdomen: No abdominal pain, nausea, vomiting, diarrhea, or constipation. No bloating, early satiety, indigestion, or increased flatulence. Bladder: No dysuria, gross hematuria, urinary frequency, urinary urgency, or incontinence. Breast: No breast lumps, nipple d/c, overlying skin changes, redness or skin retraction. Allergies and current medication updated:Yes SENSITIVE EXAM: The sensitive examination was discussed with the Patient or Patient's Authorized Manager Production. As applicable, any other physician, advance practice provider, medical student, or other health professional student that will be observing or involved in the sensitive examination for educational or training purposes was discussed with the Patient or Authorized Manager Production. The Patient or Authorized Manager Production has agreed to proceed with the sensitive examination. (Sensitive examination includes inspection and/or palpation of the breasts, pelvis, prostate and anorectal regions). EXAM: BP 108/74 Ht 5' .25 (1.53m) Wt 120 lb (54.4kg) LMP 03/11/2024 BMI 23.25 kg/(m2). GENERAL: pleasant, female in no apparent distress HEENT: Normocephalic, atraumatic, mucus membranes moist, and no lesions NECK: Supple, full range of motion, no adenopathy, and thyroid normal DERMATOLOGY: Normal, without lesions, non-icteric, and non-hirsute BREAST: soft, non-tender, symmetric, no dominant mass, normal nipple-areolar complex, no lymphadenopathy, and no nipple discharge CHEST: Normal inspiratory effort ABDOMEN: soft, non-tender, and no masses PELVIC: external genitalia normal, normal Bartholin's glands, urethra, [place]'s glands, no vulvar lesions, no cervical lesions, good vaginal support, physiologic discharge present, normal appearing perineal body and perianal region BIMANUAL: uterus normal size, shape and consistency, no adnexal masses, and non-tender RECTOVAGINAL: deferred. NEURO: alert and oriented x3,exam grossly non-focal EXTREMITIES: normal ASSESSMENT/PLAN: 1) Health maintenance: Pap done with HPV. Mammogram ordered. 2) Contraception: vasectomy. Contraceptive options reviewed and information provided. 3) STD screening: Declined STD check. 4) Follow up one year or sooner as needed Winston Sanderson MD Allergies As of Date: 04/05/2024 Noted Allergy Reaction PENICILLINS 02/26/2006 11 - Vomiting Comments: CHILDHOOD REACTION Date Reviewed: 04/05/2024 Reviewed by: Winston Sanderson MD - Fully Assessed Reason for Visit: Yearly Exam [187] Primary Visit Diagnosis:Encounter for gynecological examination (general) (routine) without abnormal findings [Z01.419] Other Visit Diagnoses:Screening for cervical cancer [Z12.4] Encounter for screening for human papillomavirus (HPV) [Z11.51] Encounter for screening mammogram for breast cancer [Z12.31] (more content not included)... Normal [facility] HIGH RISK HUMAN PAPILLOMA AMBIKA (HPV), PCR FOR DETECTION AND GENOTYPINGon 04-05-2024 HPV 16 Ag Ql (Unsp spec) Not detected Normal Not detected [facility] Comment on above: Order Comment: Speci men Type: FLUID SPECIMENOrdering Facility: [facility] Address: [address] [place] [address] Performed By: #### H PVHRT ####[facility] LABCLIA [id number] [place] [address] [place] HPV 18 Ag Ql (Unsp spec) Not detected Normal Not detected [facility] Comment on above: Order Comment: Speci men Type: FLUID SPECIMENOrdering Facility: [facility] Address: [address] [place] [address] Performed By: #### H PVHRT ####[facility] LABCLIA [id number] [place] [address] [place] HPV 31+33+35+39+45+51+52+ 56+58+59+66+68 DNA DISHA+probe Ql (Cvx) Not detected Normal Not detected [facility] Comment on above: Order Comment: Speci men Type: FLUID SPECIMENOrdering Facility: [facility] Address: [address] [place] [address] Result Comment: High Risk HPV Other Type includes HPV types 31, 33, 35, 39, 45, 51, 52, 56, 58, 59, 66 and 68. Performed By: #### H PVHRT ####[facility] LABCLIA [id number] [place] [address] [place] PAP TESTon 04-05-2024 ADEQUACY Normal [facility] Comment on above: Order Comment: Speci men Type: FLUID SPECIMENOrdering Facility: [facility] Address: [address] [place] [address] Result Comment: Sati sfactory for interpretation. No endocervical component Performed By: #### L [id number] ####[facility]ORATORYCLIA [id number] [place] [address] [place] [facility] LABCL[facility] [id number] [place] [address] [place] CASE REPORT Normal [facility] Comment on above: Order Comment: Speci men Type: FLUID SPECIMENOrdering Facility: [facility] Address: [address] [place] [address] Result Comment: Gyne cologic Cytology Report Case: [id number] Authorizing Provider: Winston Sanderson MD Collected: 04/05/2024 02:43 PM Ordering Location: OB/Gynecology Received: 04/05/2024 04:14 PM First Screen: Zeny Jay, CT, ASCP Specimen: Pap Test, ThinPrep, Cervix Performed By: #### L [id number] ####[facility] LABORATORYCLIA [id number] [place] [address] [facility] LABCLIA [id number] [place] [address] [place] CLINICAL HISTORY, CYTOLOGY, MILL TENDER No Menses, Other (Specify) Normal [facility] Comment on above: Order Comment: Speci men Type: FLUID SPECIMENOrdering Facility: [facility] Address: [address] [place] [address] Result Comment: abla tion Performed By: #### L [id number] ####[facility]ORATORYCLIA [id number] [place] [id number] [facility] LABCLIA [id number] [place] [address] [place] FINAL PERFORMING LAB Normal [facility] Comment on above: Order Comment: Speci men Type: FLUID SPECIMENOrdering Facility: [facility] Address: [address] [place] [address] Result Comment: Tech nical component, vat house supervisor screening performed at [facility], [address] [id number] CLIA# [id number] Diagnostic interpretation performed at [facility], [address] [place] [address] CLIA# [id number] Technical Sales Director: Neo Ruiz M.D. Performed By: #### L [id number] ####[facility]ORATORYCLIA [id number] [place] [id number] [facility] LABCLIA [id number] [place] [address] [place] INTERPRETATION, CYTOLOGY, MILL TENDER Normal [facility] Comment on above: Order Comment: Speci men Type: FLUID SPECIMENOrdering Facility: [facility] Address: [address] [place] [address] Result Comment: Nega tive for intraepithelial lesion or malignancy. Performed By: #### L [id number] ####[facility] LABORATORYCLIA [id number] [place] [id number] [facility] LABCLIA [id number] [address] [place] PAP DISCLAIMER COMMENT The Pap Smear is a screening test for cervical cancer. False negative results occur with all screening tests, emphasizing the need for rescreening at recommended intervals, and clinical correlation. Normal [facility] Comment on above: Order Comment: Speci men Type: FLUID SPECIMENOrdering Facility: [facility] Address: [address] [place] [address] Performed By: #### L [id number] ####[facility] LABORATORYCLIA [id number] [address] LABCLIA [id number] [address] STATES [facility] PAP PATIENT CARE NURSING ASSISTANT COMMENT This specimen has been analyzed by the ThinPrep Imaging System, an automated imaging and review system, which assists the laboratory in evaluating cells on ThinPrep Pap tests. Following automated imaging, selected weiss from every slide are reviewed by a vat house supervisor. Normal [facility] Comment on above: Order Comment: Speci men Type: FLUID SPECIMENOrdering Facility: [facility] Address: [address] [place] [address] Performed By: #### L [id number] ####[facility] LABORATORYCLIA [id number] [place] [id number] [facility] LABCLIA [id number] [address] [place] Laboratory - Chemistry and C hemistry - challengeOrdered By: Bean Trujillo on 03-27-2023 HCG ( test) Ql (U) Negative [facility] Comment on above: Very dilute urine sp ecimens, as indicated by a low specificgravity, may not contain union representative levels of hCG. If is still suspected, a first morning urinespecimen should be collected 48 hours later and tested. US BREAST LTD RTon [facility] Vital Signs Date Time Vital Sign Value Performing Clinician Facility 08-17-2024 08:33-0400 Body height 154.5 cm Irene BURNS-C Work Phone: [facility] 08-17-2024 08:33-0400 Body mass index (BMI) [Ratio] 22.61 kg/m2 Irene Beltrán PA-C Work Phone: [facility] 08-17-2024 08:33-0400 Body temperature 97.5 [degF] Irene Beltrán PA-C Work Phone: [facility] 08-17-2024 08:33-0400 Body weight 53.98 kg Irene Beltrán PA-C Work Phone: [facility] 08-17-2024 08:33-0400 Diastolic blood pressure 82 mm[Hg] Irene BURNS-C Work Phone: [facility] 08-17-2024 08:33-0400 Heart rate 69 /min Irene BURNS-C Work Phone: [facility] 08-17-2024 08:33-0400 Respiratory rate 16 /min Irene Beltrán PA-C Work Phone: [facility] 08-17-2024 08:33-0400 SaO2% (BldA) [Mass fraction] 96 % Irene BURNS-C Work Phone: [facility] 08-17-2024 08:33-0400 Systolic blood pressure 122 mm[Hg] Irene Beltrán PA-C Work Phone: [facility] 05-04-2024 18:33-0500 Body mass index (BMI) [Ratio] 23.57 kg/m2 Zeny Skaggs METAL 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: [facility] 05-04-2024 18:33-0500 Body temperature 97 [degF] Zeny Skaggs METAL 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: [facility] 05-04-2024 18:33-0500 Body weight 55.2 kg Zeny Skaggs METAL 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: [facility] 05-04-2024 18:33-0500 Diastolic blood pressure 68 mm[Hg] Zeny Skaggs METAL 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: [facility] 05-04-2024 18:33-0500 Heart rate 78 /min Zeny Skaggs METAL 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: [facility] 05-04-2024 18:33-0500 Respiratory rate 16 /min Zeny Skaggs METAL 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: [facility] 05-04-2024 18:33-0500 SaO2% (BldA) [Mass fraction] 96 % Zeny Skaggs METAL 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: [facility] 05-04-2024 18:33-0500 Systolic blood pressure 122 mm[Hg] Zeny Skaggs METAL 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: [facility] 04-05-2024 14:15-0500 Body height 153 cm Winston Sanderson MD Work Phone: [facility] 04-05-2024 14:15-0500 Body mass index (BMI) [Ratio] 23.24 kg/m2 Winston Sanderson MD Work Phone: [facility] 04-05-2024 14:15-0500 Body weight 54.43 kg Winston Sanderson MD Work Phone: [facility] 04-05-2024 14:15-0500 Diastolic blood pressure 74 mm[Hg] Winston Sanderson MD Work Phone: [facility] 04-05-2024 14:15-0500 Systolic blood pressure 108 mm[Hg] Winston Sanderson MD Work Phone: [facility] 03-27-2023 13:01-0500 Body temperature 98.4 [degF] [facility] 03-27-2023 13:01-0500 Diastolic blood pressure 84 mm[Hg] [facility] 03-27-2023 13:01-0500 Heart rate 65 /min [facility] 03-27-2023 13:01-0500 Respiratory rate 18 /min [facility] 03-27-2023 13:01-0500 SaO2% (BldA) [Mass fraction] 100 % [facility] 03-27-2023 13:01-0500 Systolic blood pressure 117 mm[Hg] [facility] 03-27-2023 09:53-0500 Body height 152.4 cm [facility] 03-27-2023 09:53-0500 Body mass index (BMI) [Ratio] 23.6 kg/m2 [facility] [facility] 03-27-2023 09:53-0500 Body weight 55 kg [facility] 01-27-2023 16:06-0500 Body height 153 cm Winston Sanderson MD Work Phone: [facility] 01-27-2023 16:06-0500 Body weight 54.43 kg Winston Sanderson MD Work Phone: [facility] 01-27-2023 16:06-0500 Diastolic blood pressure 68 mm[Hg] Winston Sanderson MD Work Phone: [facility] 01-27-2023 16:06-0500 Systolic blood pressure 104 mm[Hg] Winston Sanderson MD Work Phone: [facility] 11-25-2021 09:17-0400 Body height 153 cm Irene Beltrán PA-C Work Phone: [facility] 11-25-2021 09:17-0400 Body temperature 97.59 [degF] Irene Beltrán PA-C Work Phone: [facility] 11-25-2021 09:17-0400 Body weight 53.52 kg Irene Beltrán PA-C Work Phone: [facility] 11-25-2021 09:17-0400 Diastolic blood pressure 80 mm[Hg] Irene Beltrán PA-C Work Phone: [facility] 11-25-2021 09:17-0400 Heart rate 64 /min Irene Beltrán PA-C Work Phone: [facility] 11-25-2021 09:17-0400 Respiratory rate 16 /min Irene Beltrán PA-C Work Phone: [facility] 11-25-2021 09:17-0400 Systolic blood pressure 102 mm[Hg] Irene Beltrán PA-C Work Phone: [facility] 06-05-2021 14:24-0400 Body height 152.4 cm Winston Sanderson MD Work Phone: [facility] 06-05-2021 14:24-0400 Body weight 53.52 kg Winston Sanderson MD Work Phone: [facility] 06-05-2021 14:24-0400 Diastolic blood pressure 74 mm[Hg] Winston Sanderson MD Work Phone: [facility] 06-05-2021 14:24-0400 Systolic blood pressure 118 mm[Hg] Winston Sanderson MD Work Phone: [facility] Encounters Encounter Date Encounter Type Care Provider Facility Start: 11-18-2024 End: 11-18-2024 Telephone encounter Gasper Ramos MD Work Phone: [facility] Comment on above: Patient Question Start: 08-18-2024 End: 08-18-2024 Follow-up encounter Irene Beltrán PA-C Work Phone: [facility] Start: 08-17-2024 End: 08-17-2024 ambulatory IRENE BELTRÁN Facility:[facility] Start: 08-17-2024 End: 08-17-2024 Patient encounter procedure Irene Beltrán PA-C Work Phone: [facility] Comment on above: Wellness examination (Primary Dx); Hyperlipidemia LDL goal <130; Screening for depression; Encounter for screening examination for other mental health and behavioral disorders; Special screening examination for viral disease; Screening for colon cancer; Screening for diabetes mellitus Start: 08-17-2024 End: 08-17-2024 Patient encounter status Irene Beltrán PA-C Work Phone: [facility] Start: 08-17-2024 End: 08-17-2024 ambulatory IRENE BELTRÁN Facility:[facility] Start: 08-17-2024 Encounter for genera l adult medical examination without abnormal findings IRENE BELTRÁN [facility] Start: 05-04-2024 End: 05-04-2024 ambulatory GASPER RAMOS Facility:[facility] Start: 05-04-2024 End: 05-04-2024 Patient encounter procedure Zeny Skaggs APRN.CNP Work Phone: [facility] Comment on above: Pain, dental (Primar y Dx); Rhinosinusitis Start: 04-20-2024 End: 04-20-2024 Telephone encounter Irene Beltrán PA-C Work Phone: [facility] Comment on above: Results Start: 04-20-2024 End: 04-20-2024 ambulatory IRENE BELTRÁN Facility:[facility] Start: 04-20-2024 End: 04-20-2024 Subsequent hospital visit by physician Diagnostic Mammo [facility] Comment on above: Abnormal mammogram [ R92.8] Start: 04-07-2024 End: 04-07-2024 Telephone encounter Irene Beltrán PA-C Work Phone: [facility] Comment on above: Results Start: 04-06-2024 End: 04-06-2024 ambulatory GASPER RAMOS Facility:[facility] Start: 04-06-2024 End: 04-06-2024 Subsequent hospital visit by physician Screen Mammo [facility] Comment on above: Encounter for screen ing mammogram for breast cancer [Z12.31] Start: 04-05-2024 End: 04-05-2024 ambulatory WINSTON SANDERSON Facility:[facility] Start: 04-05-2024 End: 04-05-2024 Patient encounter procedure Winston Sanderson MD Work Phone: OB/Gynecology Comment on above: Encounter for gyneco logical examination (general) (routine) without abnormal findings (Primary Dx); Screening for cervical cancer; Encounter for screening for human papillomavirus (HPV); Encounter for screening mammogram for breast cancer Start: 04-05-2024 End: 04-05-2024 Patient encounter status Winston Sanderson MD Work Phone: [facility] Start: 01-13-2024 End: 01-18-2024 ambulatory Gasper Ramos MD Work Phone: Internal [facility] Start: 03-27-2023 ambulatory Winston Sanderson Facilit y:[facility] Start: 03-27-2023 End: 03-27-2023 Admission to same day surgery center [facility] Start: 03-27-2023 End: 03-27-2023 ambulatory [facility] Work Phone: Start: 03-03-2023 Telephone encounter Winston Sanderson MD Work Phone: OB/Gynecology Comment on above: Schedule Surgery Start: 01-28-2023 ambulatory Gasper skaggs MD Work Phone: [facility] Start: 01-27-2023 End: 01-27-2023 Patient encounter procedure Winston Sanderson MD Work Phone: OB/Gynecology Comment on above: Encounter for gyneco logical examination with abnormal finding (Primary Dx); Encounter for screening mammogram for breast cancer; Menorrhagia with regular cycle Start: 01-27-2023 End: 01-27-2023 Patient encounter status Winston Sanderson MD Work Phone: [facility] Work Phone: Start: 06-18-2022 ambulatory Gasper skaggs MD Work Phone: Internal [facility] Start: 11-26-2021 Telephone encounter Irene oseguera PA-C [facility] Comment on above: Results Start: 11-25-2021 End: 11-25-2021 Patient encounter procedure Irene Beltrán PA-C Work Phone: [facility] Comment on above: Well adult exam ([facility] nida Dx); Hyperlipidemia LDL goal <130; Screening for diabetes mellitus Start: 11-25-2021 End: 11-25-2021 Patient encounter status Irene Beltrán PA-C Work Phone: [facility] [place] Start: 06-05-2021 End: 06-05-2021 Patient encounter procedure Winston Sanderson MD Work Phone: OB/Gynecology Comment on above: Encounter for gyneco logical examination (general) (routine) without abnormal findings; Encounter for screening mammogram for breast cancer Start: 06-05-2021 End: 06-05-2021 Patient encounter status Winston Sanderson MD Work Phone: OB/Gynecology Start: 06-05-2021 Telephone encounter Loida mai 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: [facility] [place] Comment on above: Results Start: 06-04-2021 End: 06-04-2021 Subsequent hospital visit by physician [facility] Work Phone: Radiology Comment on above: Abnormal mammogram [ R92.8] Procedures Date Procedure Procedure Detail Performing Clinician Start: 08-17-2024 Adult depression scr eening assessment Irene BURNS-C Work Phone: Start: 08-17-2024 Lipid 1996 panel - S bear or Plasma Irene BURNS-C Work Phone: Start: 04-20-2024 Us breast uni real t alondra with image limited Irene BURNS-C Work Phone: Start: 04-20-2024 Digital breast tomosynthesis unilateral Irene BURNS-C Work Phone: Start: 03-27-2023 Hysteroscopy with endometrial ablation Start: 11-25-2021 Adult depression scr eening assessment Irene BURNS-C Work Phone: Start: 11-25-2021 Lipid 1996 panel - S bear or Plasma Winston Sanderson MD Work Phone: Start: 06-04-2021 Us breast uni real t alondra with image limited Marco Antonio Cheung [employer] 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: Start: 04-25-2021 Mammography Us 1 Work Phone: Start: 11-12-2020 Adult depression scr eening assessment Us 1 Work Phone: Plan of Treatment Date Care Activity Detail Author Start: 08-17-2029 Lipid panel Lipid Screening [facility] Start: 04-05-2029 Screening for malign ant neoplasm of cervix Cervical Cancer Screening [facility] Start: 08-21-2027 Screening for malign ant neoplasm of colon [facility] Start: 08-18-2027 Diabetes Screening Diabetes Screenin g [facility] Start: 11-25-2026 Lipid 1996 panel - Serum or Plasma Lipid Screening [facility] Start: 11-25-2026 Lipid panel Lipid Screening [facility] Start: 11-25-2026 LIPID SCREEN LIPID SCREEN [facility] Start: 01-03-2026 Urine microalbumin profile [facility] Start: 08-21-2025 End: 08-21-2025 Patient encounter procedure 08/21/2025 9:00 AM EDT Office Visit [facility] [address] [place] [address] Irene Beltrán PA-C [address] [place] [address] physical [facility] Comment on above: physical Start: 08-17-2025 Anxiety Screening Anxiety Screening [facility] Start: 08-17-2025 Covid-19 Vaccine () Covid-19 Vaccine () [facility] Comment on above: Postponed from 11/14 (Declined at this time) Start: 08-17-2025 Depression Screening Depression Scre ening [facility] Start: 04-06-2025 Screening for malign ant neoplasm of breast Mammogram Screening [facility] Start: 04-05-2025 End: 04-05-2025 Patient encounter procedure 04/05/2025 2:20 PM EST Office Visit OB/Gynecology [address] [place] [id number] Winston Sanderson MD [address] [place] [address] Annual OB/Gynecology Comment on above: Annual Start: 02-02-2025 HPV TESTING HPV TESTING [facility] Start: 02-02-2025 PAP TESTING PAP TESTING [facility] Start: 02-02-2025 Screening for malign ant neoplasm of cervix [facility] Start: 11-25-2024 DIABETES SCREEN DIABETES SCREEN [facility] Start: 11-25-2024 Diabetes Screening Diabetes Screenin g [facility] Start: 11-18-2024 End: 02-17-2025 Hepatic function 2000 panel - Serum or Plasma HEPATIC FUNCTION PNL Lab Routine Hyperlipidemia LDL goal <130 Expected: 11/18/2024, Expires: 02/17/2025 [facility] Comment on above: Expected: 11/18/2024 , Expires: 02/17/2025 Start: 11-18-2024 End: 02-17-2025 LIPID PANEL, NONFASTING LIPID PANEL, NONFASTING Lab Routine Hyperlipidemia LDL goal <130 Expected: 11/18/2024, Expires: 02/17/2025 [facility] Work Phone: Comment on above: Expected: 11/18/2024 , Expires: 02/17/2025 Start: 11-14-2024 Influenza vaccination [facility] Start: 08-17-2024 End: 11-16-2024 Comprehensive metabolic 2000 panel - Serum or Plasma [facility] Work Phone: Comment on above: Expected: 08/17/2024 , Expires: 11/16/2024 Start: 08-17-2024 End: 11-16-2024 LIPID PANEL, NONFASTING [facility] Comment on above: Expected: 08/17/2024 , Expires: 11/16/2024 Start: 06-08-2024 End: 06-08-2024 Patient encounter procedure Mammogram Comment on above: Abnormal mammogram [ R92.8] Start: 05-02-2024 End: 05-02-2024 Patient encounter procedure 05/02/2024 1:20 PM EST Office [facility] [address] [place], [place] [phone] Irene Beltrán PA-C [address] [facility] [place] [phone] [facility] [place] Comment on above: physical Start: 04-06-2024 End: 04-06-2024 Patient encounter procedure 04/06/2024 11:10 AM EST Appointment Mammogram [address] [place], [place] [phone] Encounter for screening mammogram for breast cancer [Z12.31] Mammogram Comment on above: Encounter for screen ing mammogram for breast cancer [Z12.31] Start: 04-05-2024 End: 04-05-2024 Patient encounter procedure 04/05/2024 2:20 PM EST Office Visit OB/Gynecology [address] [place], [place] [phone] Winston Sanderson MD [address] [place], [place] [id number] Annual OB/Gynecology Comment on above: Annual Start: 03-24-2024 LIPID SCREEN LIPID SCREEN [facility] Start: 11-15-2023 Covid-19 Vaccine ( season) Covid-19 Vaccine () [facility] Start: 11-15-2023 Influenza vaccination Influenza Vacc ine (#1) [facility] Start: 03-27-2023 Ambulation without limitation [facility] Start: 03-27-2023 Medical regimen orde rs management [facility] Start: 03-27-2023 Medication education [facility] Start: 03-27-2023 Patient discharge [facility] Start: 03-27-2023 Procedure discontinued [facility] Start: 03-27-2023 Taking patient vital signs [facility] Start: 03-27-2023 Vital signs measurements [facility] Start: 03-27-2023 [facility] Start: 11-25-2022 Adult depression screening assessment DEPRESSION SCREENING [facility] Start: 11-25-2022 HEPATITIS C SCREENING HEPATITIS C [facility] Comment on above: Postponed from 03/15 (Declined at this time) Start: 11-14-2022 Covid-19 Vaccine ( season) Covid-19 Vaccine (2022- season) [facility] Start: 11-14-2022 Influenza vaccination C [facility] Start: 04-25-2022 Mammography [facility] Start: 04-25-2022 Screening for malign ant neoplasm of breast Mammogram Screening [facility] Start: 03-24-2022 DIABETES SCREEN DIABETES SCREEN [facility] Start: 03-16-2022 DEPRESSION ASSESSMENT DEPRESSION ASS ESSMENT [facility] Start: 11-25-2021 End: 01-25-2022 Comprehensive metabolic 2000 panel - Serum or Plasma [facility] Work Phone: Comment on above: Expected: 11/25/2021 , Expires: 01/25/2022 Start: 11-25-2021 End: 01-25-2022 Hemoglobin A1c in Blood [facility] Work Phone: Comment on above: Expected: 11/25/2021 , Expires: 01/25/2022 Start: 11-25-2021 End: 01-25-2022 LIPID PANEL, NONFASTING [facility] Work Phone: Comment on above: Expected: 11/25/2021 , Expires: 01/25/2022 Start: 11-14-2021 Influenza vaccination INFLUENZA (#1) [facility] Start: 11-12-2021 Adult depression screening assessment DEPRESSION SCREENING [facility] Start: 11-12-2021 HEPATITIS C SCREENING HEPATITIS C SC [facility] Comment on above: Postponed from 03/15 (Declined at this time) Start: 2021 COLOGUARD (FIT-DNA) COLOGUARD (FIT-D NA) [facility] Start: 2021 Colonoscopy COLONOSCOPY [facility] Start: 2021 COLORECTAL CANCER SCREENING COLORECTAL CANCER SCREENING [facility] Start: [address] COLONOGRAPHY [facility] Start: 2021 FECAL OCCULT BLOOD FECAL OCCULT BLOO D [facility] Start: 2021 Screening for malign ant neoplasm of colon [facility] Start: 2021 SIGMOIDOSCOPY SIGMOIDOSCOPY [facility] Start: 01-04-2021 COVID-19 VACCINE (2 - Booster for Adilson series) COVID-19 VACCINE (2 - Booster for Adilson series) [facility] Start: 11-14-2020 Influenza vaccination INFLUENZA (#1) [facility] Start: 1994 Anxiety Screening Anxiety Screening [facility] Start: 1994 Depression Screening Depression Scre ening [facility] Start: 1994 Hepatitis C Screening Hepatitis C Sc [facility] Start: 1994 Hepatitis C screening Hepatitis C [facility] COLOGUARD COLOGUARD Lab Ro utine Screening for colon cancer Ordered: 08/17/2024 [facility] Comment on above: Ordered: 08/17/2024 End: 02-11-2025 DBT Breast - bilateral screening LILA SCREENING W [facility]RE[facility] Radiology Routine Encounter for screening mammogram for breast cancer 1 Occurrences starting 01/13/2024 until 02/11/2025 [facility] Work Phone: Comment on above: 1 Occurrences starti ng 01/13/2024 until 02/11/2025 End: 05-05-2025 DBT Breast - bilateral screening LILA SCREENING W [facility] Radiology Routine Encounter for gynecological examination (general) (routine) without abnormal findings Encounter for screening mammogram for breast cancer 1 Occurrences starting 04/05/2024 until 05/05/2025 [facility] Work Phone: Comment on above: 1 Occurrences starti ng 04/05/2024 until 05/05/2025 DBT Breast - bilater al screening LILA SCREENING W [facility]RE[facility] Radiology Routine Encounter for screening mammogram for breast cancer 04/06/2024 11:22 AM EST [facility] Work Phone: End: 05-07-2025 DBT Breast - left diagnostic for implant LILA DIAG W ANDREAS LEFT Radiology Routine Abnormal mammogram 1 Occurrences starting 04/07/2024 until 05/07/2025 [facility] Comment on above: 1 Occurrences starti ng 04/07/2024 until 05/07/2025 End: 05-20-2025 DBT Breast - left diagnostic for implant LILA DIAG W ANDREAS LEFT Radiology Routine Cyst of left breast Abnormal mammogram 1 Occurrences starting 04/20/2024 until 05/20/2025 [facility] Comment on above: 1 Occurrences starti ng 04/20/2024 until 05/20/2025 Endometrial bx w/wo endocervix bx w/o dilat spx ENDOMETRIAL BIOPSY Procedures Routine Menorrhagia with regular cycle Ordered: 01/27/2023 [facility] Work Phone: Comment on above: Ordered: 01/27/2023 End: 07-18-2023 LILA SCREENING LILA SCREENING Radiology Routine Encounter for screening mammogram for breast cancer 1 Occurrences starting 06/18/2022 until 07/18/2023 [facility] Work Phone: Comment on above: 1 Occurrences starti ng 06/18/2022 until 07/18/2023 End: 02-27-2024 LILA SCREENING LILA SCREENING Radiology Routine Encounter for screening mammogram for breast cancer 1 Occurrences starting 01/28/2023 until 02/27/2024 [facility] Work Phone: Comment on above: 1 Occurrences starti ng 01/28/2023 until 02/27/2024 End: 07-05-2022 LILA SCREENING W ANDREAS LILA SCREENING W [facility] Radiology Routine Encounter for gynecological examination (general) (routine) without abnormal findings Encounter for screening mammogram for breast cancer 1 Occurrences starting 06/05/2021 until 07/05/2022 [facility] Work Phone: Comment on above: 1 Occurrences starti ng 06/05/2021 until 07/05/2022 PAP TEST PAP TEST Lab [facility] Encounter for gynecological examination (general) (routine) without abnormal findings Screening for cervical cancer Encounter for screening for human papillomavirus (HPV) 04/05/2024 2:43 PM [facility] End: 05-07-2025 US Breast - left limited US BREAST LTD LEFT Radiology Routine Abnormal mammogram 1 Occurrences starting 04/07/2024 until 05/07/2025 [facility] Work Phone: Comment on above: 1 Occurrences starti ng 04/07/2024 until 05/07/2025 End: 05-20-2025 US Breast - left limited US BREAST LTD LEFT Radiology Routine Cyst of left breast Abnormal mammogram 1 Occurrences starting 04/20/2024 until 05/20/2025 [facility] Work Phone: Comment on above: 1 Occurrences starti ng 04/20/2024 until 05/20/2025 End: 02-26-2024 Us transvaginal US FEMALE PELVIS TRANSVAG Radiology Routine Menorrhagia with regular cycle 1 Occurrences starting 01/27/2023 until 02/26/2024 [facility] Work Phone: Comment on above: 1 Occurrences starti ng 01/27/2023 until 02/26/2024 [facility] Immunizations Immunization Date Immunization Notes Care Provider Fa ayanna 11-09-2020 COVID-19 vaccine (ADILSON) Us 1 Work Phone: [facility] Work Phone: 02-03-2017 influenza, injectabl e, quadrivalent, contains preservative Us 1 Work Phone: [facility] 02-03-2017 influenza virus vaccine, unspecified formulation Winston Sanderson MD Work Phone: [facility] 01-04-2016 tetanus toxoid, redu christine diphtheria toxoid, and acellular pertussis vaccine, adsorbed Us 1 Work Phone: [facility] 12-03-2015 influenza, injectabl e, quadrivalent, contains preservative Us 1 Work Phone: [facility] Work Phone: 01-18-2015 influenza, injectabl e, quadrivalent, contains preservative Us 1 Work Phone: [facility] Work Phone: 06-21-2013 tetanus toxoid, redu christine diphtheria toxoid, and acellular pertussis vaccine, adsorbed Us 1 Work Phone: [facility] 02-02-2013 influenza virus vaccine, unspecified formulation Us 1 Work Phone: [facility] Work Phone: 12-29-2012 Influenza virus vaccine [facility] 02-18-2012 influenza virus vaccine, unspecified formulation Us 1 Work Phone: [facility] 02-05-2010 influenza virus vaccine, live, attenuated, for intranasal use Us 1 Work Phone: [facility] 01-12-2009 influenza virus vaccine, unspecified formulation Us 1 Work Phone: [facility] Work Phone: Payers Date Payer Category Payer Self-pay 2022 [employer] BLUE CARD PPO OOS [id number] 2022 Unknown [employer] BLUE CARD PPO OOS [id number] 2022-Present [phone] [id number] [place] [address] PPO [id number] 2022 Unknown [id number] 2020 Private Health Insurance HU[employer]NA HU[employer]NA NATIONAL POS [id number] 2020-Present [id number] [place] [id number] POS [id number] 2020 Private Health Insurance [employer] HU[employer] NATIONAL POS [id number] 2020-Present [phone] [place] [id number] POS [id number] 2012 Private Health Insurance [id number] Unknown [id number] Social History Date Type Detail Facility Start: 11-25-2021 Tobacco smoking stat us NHIS Never smoked tobacco [facility] Start: 11-12-2020 End: 08-17-2024 Alcohol intake [facility] [facility] Start: 02-03-2020 History SDOH Alcohol Comment wine [facility] Start: 1975 Sex Assigned At Not on file C [facility] Start: 05-25-2021 End: 11-25-2021 Exposure to SARS-CoV-2 (event) Not sure [facility] Start: 11-25-2021 Tobacco use and exposure Smokeless tobacco non-user [facility] Start: 01-27-2023 End: 08-17-2024 History of Social function [facility] Start: 01-27-2023 End: 08-17-2024 Tobacco use panel [facility] Start: 02-15-2012 Adult Depression Screening Assessment 0 [facility] Start: 03-23-2023 [facility] Start: 1975 Sex Assigned At Female [facility] NEGATED: Highlighted row [facility] Goals Date Patient Goal Desired Activity /State Functional Status Date Assessment Result Facility 08-18-2013 Are you deaf, or do you have serious difficulty hearing No 08/18/2013 1:59 PM Sofya Hickman Ma No [facility] 08-18-2013 Are you blind, or do you have serious difficulty seeing, even when wearing glasses No 08/18/2013 1:59 PM Sofya Hickman Ma No [facility] 08-18-2013 Do you have serious difficulty walking or climbing stairs No 08/18/2013 1:59 PM Sofya Hickman Ma No [facility] 08-18-2013 Do you have difficul ty dressing or bathing No 08/18/2013 1:59 PM Sofya Hickman Ma No [facility] 08-18-2013 Because of a physica l, mental, or emotional condition, do you have difficulty doing errands alone such as visiting a physician's office or shopping No 08/18/2013 1:59 PM EDT Sofya Michaels Ma [facility] Mental Status Date Assessment Result Facility 03-27-2023 Cognitive function Voice/Name [place] [facility] Work Phone: 08-18-2013 Because of a physica l, mental, or emotional condition, do you have serious difficulty concentrating, remembering, or making decisions No 08/18/2013 1:59 PM EDT Sofya Michaels Ma [facility] Clinical Notes 08-23-2015 to 11-18-2024 Telephone Encounter - Heather Marley RN - 11/18/2024 10:08 AM EDTTelephone Encounter - Heather Marley RN - 11/18/2024 10:08 AM CESARTRIrene apodaca PA- C - 08/17/2024 8:41 AM EDT Note Date & Type Note Facility 11-18-2024 Telephone encounter Note Pt called asking about getting refilled on her Crestor. I let her know the provider called in a years worth of medication. Pt is going to call the pharmacy and have them refill it. I let her know she could ask them to put the medication so it auto-refills. Heather Marley RN [facility] 11-18-2024 Miscellaneous Notes Pt called asking about getting refilled on her Crestor. I let her know the provider called in a years worth of medication. Pt is going to call the pharmacy and have them refill it. I let her know she could ask them to put the medication so it auto-refills. Heather Marley RN documented in this encounter [facility] 08-18-2024 Telephone encounter Note Pt notified of same, verbalizes understanding. Pedro Rangel LPN [facility] 08-18-2024 Miscellaneous Notes Pt notified of same, verbalizes understanding. Pedro Rangel LPN Prescription sent. Recheck levels in 3 months. Orders placed Pt notified of results and instructions. Pt verbalizes understanding. Pt is agreeable to starting medication. Please send to [facility]. Pedro Rangel LPN Let patient know that her LDL is in the 200s. Goal is under 130. This is very high. If left untreated, this could lead to Cardiovascular disease in the future. I strongly encourage starting statin, crestor 5mg, to help decrease this risk. Let me know what she wants to do. Otherwise her labs are okay. Thanks. Irene Beltrán PA-C documented in this encounter [facility] 08-18-2024 Telephone encounter Note Prescription sent. Recheck levels in 3 months. Orders placed [facility] 08-18-2024 Telephone encounter Note Pt notified of results and instructions. Pt verbalizes understanding. Pt is agreeable to starting medication. Please send to [facility]. Pedro Rangel LPN [facility] 08-18-2024 Telephone encounter Note Let patient know that her LDL is in the 200s. Goal is under 130. This is very high. If left untreated, this could lead to Cardiovascular disease in the future. I strongly encourage starting statin, crestor 5mg, to help decrease this risk. Let me know what she wants to do. Otherwise her labs are okay. Thanks. Irene Beltrán PA-C [facility] 08-17-2024 Note HNO ID: [id number] Author: IRENE BELTRÁN PA-C Service: ? Author Type: Physician Tapeman Type: Progress Notes Filed: 08/17/2024 11:26 Note Text: Chief Complaint Patient presents with: Yearly Exam HPI Amanda Melgar is a 49 year old female who presents here today for physical. She feels her L 4th digit PIP joint has become enlarged and is having trouble removing her ring. She denies injury/trauma, pain or locking of the digit. Otherwise patient is doing well. Patient with a PMHx of: Cholecystitis, Cholelithiasis, Hyperlipidemia Past medical history, appointments, medications, allergies reviewed. Previous Medical History PAST MEDICAL HISTORY Diagnosis Date Abnormal Pap smear of cervix Cholecystitis Cholelithiasis Dysthymic disorder Depression (non-psychotic) Hyperlipidemia 04/14/2012 Previous Surgical History PAST SURGICAL HISTORY Procedure Laterality Date HYSTEROSCOPY ENDOMETRIAL ABLATION 03/27/2023 Karen endometrial ablation LAPS SURG CHOLECYSTECTOMY W/CHOLANGIOGRAPHY 05/16/2009 PAST SURGICAL HISTORY OF RIGHT WRIST SURGERY X 2 TONSILLECTOMY PRIMARY/SECONDARY Tonsillectomy Family History FAMILY HISTORY Problem Relation Age of Onset Hypertension Mother Lipids Mother other (ADDISONS DISEASE) Mother Ischemic Heart Disease Mother Lipids Father Prostate Cancer Father Thyroid Brother Also Down's Syndrome other (pace maker) Brother Stroke Brother Lipids Brother Cancer Maternal Grandmother COPD Maternal Grandfather Breast Cancer Maternal Aunt Patient Allergies ALLERGIES Allergen Reactions Penicillins Vomiting CHILDHOOD REACTION Current Medications Current Outpatient Medications on File Prior to Visit Medication Sig HAIR, SKIN AND NAILS, BIOTIN, ORAL Take by mouth. ascorbic acid/collagen hydr (COLLAGEN SKIN RENEWAL ORAL) Take by mouth. BIOTIN ORAL Take by mouth once daily. docosahexaenoic acid/epa (FISH OIL ORAL) Take by mouth once daily. mv,Ca,min/iron/FA/guarana/caff (ONE-A-DAY WOMEN'S ACTIVE ORAL) Take by mouth. diphenhydramine HCl (BENADRYL ORAL) Take by mouth. azithromycin (ZITHROMAX Z-VENUS) 250 mg tablet Take 2 tablets by mouth once daily for 1 day, then 1 tablet once daily for 4 days (Patient not taking: Reported on 08/17/2024) No current facility-administered medications on file prior to visit. Social History Social History Tobacco Use Smoking status: Never Smokeless tobacco: Never Vaping Use Vaping status: Never Used Substance Use Topics Alcohol use: Yes Comment: wine Drug use: No Review of Symptoms REVIEW OF SYSTEMS GENERAL: No weight loss, malaise or fevers HEENT: Negative for frequent or significant headaches, No changes in hearing or vision, no nose bleeds or other nasal problems NECK: Negative for lumps, goiter, pain and significant neck swelling RESPIRATORY: Negative for cough, hemoptysis, wheezing, COPD, dyspnea or shortness of breath CARDIOVASCULAR: Negative for chest pain, leg swelling, hypertension, CHF or palpitations GI: No nausea, vomiting, or diarrhea : No history of dysuria, frequency or incontinence MILL TENDER: Negative for abnormal vaginal bleeding, abnormal vaginal discharge MUSCULOSKELETAL: Negative for joint pain or swelling, back pain or muscle pain SKIN: Negative for lesions, rash, and itching PSYCH: Negative for sleep disturbance, mood disorder and recent psychosocial stressors HEMATOLOGY/LYMPHOLOGY: Negative for prolonged bleeding, bruising easily or swollen nodes ENDOCRINE: Negative for cold or heat intolerance, polyuria, polydipsia and goiter NEURO: No history of headaches, syncope, paralysis, seizures or tremors EXAM: BP 122/82 (BP Site: Right Arm, BP Position: Sitting, BP Cuff Size: Regular Adult) Pulse 69 Temp 36.4 ?C (97.5 ?F) Resp 16 Ht 154.5 cm (5' 0.83) Wt 54 kg (119 lb) LMP 03/11/2024 (Within Days) SpO2 96% BMI 22.61 kg/m? Skin: Skin color, texture, turgor normal, no suspicious rashes or lesions. Head: Normocephalic, no masses, lesions, tenderness or abnormalities. Eyes: Anicteric sclera. Pupils are equally round and reactive to light. Extraocular movements are intact. . Ears: External ears normal, canals clear. Nose/Sinuses: Nares normal, septum midline, mucosa normal, no drainage or sinus tenderness. Oropharynx: Lips, mucosa, and tongue normal, teeth and gums normal, oropharynx normal. Neck: Supple, no adenopathy; thyroid symmetric, normal size, no bruits. Lungs: Lungs clear to auscultation. No wheezing, rhonchi, rales.. Heart: RRR without murmur, gallop, or rubs. No ectopy. Abdomen: Normal abdominal exam, Abdomen soft, non-tender. Bowel sounds normal. No masses, organomegaly. Extremities: No deformities, edema, skin discoloration, clubbing or cyanosis. Good capillary refill. +L 4th digit DIP bony enlargement, no erythema, edema, or pain. Peripheral Pulses: Normal. Health Maintenance List Dep (more content not included)... [facility] 08-17-2024 History of Presen t illness Narrative Chief Complaint Patient presents with: Yearly Exam HPI Amanda Valentina Eladia Melgar is a 49 year old female who presents here today for physical. She feels her L 4th digit PIP joint has become enlarged and is having trouble removing her ring. She denies injury/trauma, pain or locking of the digit. Otherwise patient is doing well. Patient with a PMHx of: Cholecystitis, Cholelithiasis, Hyperlipidemia Past medical history, appointments, medications, allergies reviewed. Previous Medical History PAST MEDICAL HISTORY Diagnosis Date Abnormal Pap smear of cervix Cholecystitis Cholelithiasis Dysthymic disorder Depression (non-psychotic) Hyperlipidemia 04/14/2012 Previous Surgical History PAST SURGICAL HISTORY Procedure Laterality Date HYSTEROSCOPY ENDOMETRIAL ABLATION 03/27/2023 Karen endometrial ablation LAPS SURG CHOLECYSTECTOMY W/CHOLANGIOGRAPHY 05/16/2009 PAST SURGICAL [...] ALLERGIES Allergen Reactions Penicillins Vomiting CHILDHOOD REACTION Current Medications Current Outpatient Medications on File Prior to Visit Medication Sig HAIR, SKIN AND NAILS, BIOTIN, ORAL Take by mouth. ascorbic acid/collagen hydr (COLLAGEN SKIN RENEWAL ORAL) Take by mouth. BIOTIN ORAL Take by mouth once daily. docosahexaenoic acid/epa (FISH OIL ORAL) Take by mouth once daily. mv,Ca,min/iron/FA/guarana/caff (ONE-A-DAY WOMEN'S ACTIVE ORAL) Take by mouth. diphenhydramine HCl (BENADRYL ORAL) Take by mouth. azithromycin (ZITHROMAX Z-VENUS) 250 mg tablet Take 2 tablets by mouth once daily for 1 day, then 1 tablet once daily for 4 days (Patient not taking: Reported on 08/17/2024) No current facility-administered medications on file prior to visit. Social History Social History Tobacco Use Smoking status: Never Smokeless tobacco: Never Vaping Use Vaping status: Never Used Substance Use Topics Alcohol use: Yes Comment: wine Drug use: No Review of Symptoms REVIEW OF SYSTEMS GENERAL: No weight loss, malaise or fevers HEENT: Negative for frequent or significant headaches, No changes in hearing or vision, no nose bleeds or other nasal problems NECK: Negative for lumps, goiter, pain and significant neck swelling RESPIRATORY: Negative for cough, hemoptysis, wheezing, COPD, dyspnea or shortness of breath CARDIOVASCULAR: Negative for chest pain, leg swelling, hypertension, CHF or palpitations GI: No nausea, vomiting, or diarrhea : No history of dysuria, frequency or incontinence MILL TENDER: Negative for abnormal vaginal bleeding, abnormal vaginal discharge MUSCULOSKELETAL: Negative for joint pain or swelling, back pain or muscle pain SKIN: Negative for lesions, rash, and itching PSYCH: Negative for sleep disturbance, mood disorder and recent psychosocial stressors HEMATOLOGY/LYMPHOLOGY: Negative for prolonged bleeding, bruising easily or swollen nodes ENDOCRINE: Negative for cold or heat intolerance, polyuria, polydipsia and goiter NEURO: No history of headaches, syncope, paralysis, seizures or tremors EXAM: BP 122/82 (BP Site: Right Arm, BP Position: Sitting, BP Cuff Size: Regular Adult) Pulse 69 Temp 36.4 C (97.5 F) Resp 16 Ht 154.5 cm (5' 0.83) Wt 54 kg (119 lb) LMP 03/11/2024 (Within Days) SpO2 96% BMI 22.61 kg/m Skin: Skin color, texture, turgor normal, no suspicious rashes or lesions. Head: Normocephalic, no masses, lesions, tenderness or abnormalities. Eyes: Anicteric sclera. Pupils are equally round and reactive to light. Extraocular movements are intact. . Ears: External ears normal, canals clear. Nose/Sinuses: Nares normal, septum midline, mucosa normal, no drainage or sinus tenderness. Oropharynx: Lips, mucosa, and tongue normal, teeth and gums normal, oropharynx normal. Neck: Supple, no adenopathy; thyroid symmetric, normal size, no bruits. Lungs: Lungs clear to auscultation. No wheezing, rhonchi, rales.. Heart: RRR without murmur, gallop, or rubs. No ectopy. Abdomen: Normal abdominal exam, Abdomen soft, non-tender. Bowel sounds normal. No masses, organomegaly. Extremities: No deformities, edema, skin discoloration, clubbing or cyanosis. Good capillary refill. +L 4th digit DIP bony enlargement, no erythema, edema, or pain. Peripheral Pulses: Normal. Health Maintenance List Depression Screening Never done Anxiety Screening Never done Hepatitis C Screening Never done Colorectal Cancer Screening Never done Covid-19 Vaccine( season) due on 08/17/2025 Influenza Vaccine(Season Ended) due on 11/14/2024 Diabetes Screening due on 11/25/2024 Mammogram Screening due on 04/06/2025 DTaP,Tdap,Td Vaccine(3 - Td or Tdap) due on 01/03/2026 Lipid Screening due on 11/25/2026 Cervical Cancer Screening due on 04/05/2029 HIV Screening Completed Hepatitis B Vaccine Discontinued Data reviewed ASSESSMENT/PLAN: 1. Wellness examination - ICD9: V70.0, ICD10: Z00.00 (primary diagnosis) States she wears readers and is having a harder time reading things on her phone. She does not currently have a prescription for contacts or glasses. Referred her to opthalmology for further evaluation. Her L 4th digit is not causing any issues and at this point will continue to monitor. - CONSULT TO OPHTHALMOLOGY 2. Hyperlipidemia LDL goal <130 - ICD9: 272.4, ICD10: E78.5 Will recheck labs to assess hyperlipidemia status. We will discuss the potential need for medication depending on results. - COMPREHENSIVE METABOLIC PANEL - LIPID PANEL, NONFASTING 3. Screening for depression - ICD9: V79.0, ICD10: Z13.31 No new concerns - DEPRESSION SCREENING 4. Encounter for screening examination for other mental health and behavioral disorders - ICD9: V79.8, ICD10: Z13.39 No new concerns - ANXIETY SCREENING 5. Special screening examination for viral disease - ICD9: V73.99, ICD10: Z11.59 - HEPATITIS C ANTIBODY IA WITH CONFIRMATION 6. Screening for colon cancer - ICD9: V76.51, ICD10: Z12.11 Patient declines screening colonoscopy and would like to do cologuard instead. - COLOGUARD 7. Screening for diabetes mellitus - ICD9: V77.1, ICD10: Z13.1 - HEMOGLOBIN A1C Patient to follow up in 1 year for annual physical or will contact us sooner for any new concerns. Jaqueline DODGE I have personally seen and examined the patient and performed the medical-decision making components. I have reviewed the Physician Tapeman (PA) student's documentation and verified the findings in the note as written. Any additions or changes are noted in bold/italics. Irene Beltrán PA-C documented in this encounter [facility] 05-04-2024 Note HNO ID: [id number] Author: ZENY SKAGGS APRN.[facility] Service: ? Author Type: Nurse Practitioner Type: Progress Notes Filed: 05/04/2024 19:21 Note Text: This note was created using NoteWriter. Subjective Amanda Montgomery Eladia Melgar is a 49 year old female. 49 year old female with PMH hyperlipidemia, depression, presents for facial complaints Acute onset X 1 day Right upper teeth +sharp +aching +right sinus pressure Of note, she was at the dentist 2 weeks ago Used Mucinex spray Denies tobacco usage The history is provided by the patient. No second language tutor was used. Sinus Problem This is a new problem. The current episode started yesterday. The problem occurs constantly. The problem has been unchanged. Pertinent negatives include no abdominal pain, anorexia, arthralgias, change in bowel habit, chest pain, chills, congestion, coughing, diaphoresis, fatigue, fever, headaches, joint swelling, myalgias, nausea, neck pain, numbness, rash, sore throat, swollen glands, urinary symptoms, vertigo, visual change, vomiting or weakness. Nothing aggravates the symptoms. She has tried nothing for the symptoms. The treatment provided no relief. PAST MEDICAL HISTORY Diagnosis Date Abnormal Pap smear of cervix Cholecystitis Cholelithiasis Dysthymic disorder Depression (non-psychotic) Hyperlipidemia 04/14/2012 PAST SURGICAL HISTORY Procedure Laterality Date HYSTEROSCOPY ENDOMETRIAL ABLATION 03/27/2023 Karen endometrial ablation LAPS SURG CHOLECYSTECTOMY W/CHOLANGIOGRAPHY 05/16/2009 PAST SURGICAL HISTORY OF RIGHT WRIST SURGERY X 2 TONSILLECTOMY PRIMARY/SECONDARY Tonsillectomy ALLERGIES Penicillins MEDICATIONS azithromycin (ZITHROMAX Z-VENUS) 250 mg tablet Take 2 tablets by mouth once daily for 1 day, then 1 tablet once daily for 4 days ascorbic acid/collagen hydr (COLLAGEN SKIN RENEWAL ORAL) Take by mouth. BIOTIN ORAL Take by mouth once daily. docosahexaenoic acid/epa (FISH OIL ORAL) Take by mouth once daily. mv,Ca,min/iron/FA/guarana/caff (ONE-A-DAY WOMEN'S ACTIVE ORAL) Take by mouth. diphenhydramine HCl (BENADRYL ORAL) Take by mouth. FAMILY HISTORY Problem Relation Age of Onset Hypertension Mother Lipids Mother other (ADDISONS DISEASE) Mother Ischemic Heart Disease Mother Lipids Father Prostate Cancer Father Thyroid Brother Also Down's Syndrome other (pace maker) Brother Stroke Brother Lipids Brother Cancer Maternal Grandmother COPD Maternal Grandfather Breast Cancer Maternal Aunt Social History Tobacco Use Smoking status: Never Smokeless tobacco: Never Vaping Use Vaping status: Never Used Substance Use Topics Alcohol use: Yes Comment: wine Drug use: No Review of Systems Constitutional: Negative for chills, diaphoresis, fatigue and fever. HENT: Negative for congestion and sore throat. Eyes: Negative for pain, discharge, redness and itching. Respiratory: Negative for cough. Cardiovascular: Negative for chest pain. Gastrointestinal: Negative for abdominal pain, anorexia, change in bowel habit, nausea and vomiting. Musculoskeletal: Negative for arthralgias, joint swelling, myalgias and neck pain. Skin: Negative for color change, pallor and rash. Allergic/Immunologic: Negative for environmental allergies, food allergies and immunocompromised state. Neurological: Negative for dizziness, vertigo, facial asymmetry, weakness, numbness and headaches. Hematological: Negative for adenopathy. Does not bruise/bleed easily. Psychiatric/Behavioral: Negative for agitation and behavioral problems. Objective BP 122/68 Pulse 78 Temp 36.1 ?C (97 ?F) Resp 16 Wt 55.2 kg (121 lb 11.1 oz) LMP 03/11/2024 (Within Days) SpO2 96% BMI 23.57 kg/m? Physical Exam Vitals and nursing note reviewed. Constitutional: General: She is not in acute distress. Appearance: Normal appearance. She is normal weight. She is not ill-appearing, toxic-appearing or diaphoretic. HENT: Head: Normocephalic and atraumatic. Comments: Right maxillary TTP Right Ear: Ear canal and external ear normal. Left Ear: Ear canal and external ear normal. Nose: Nose normal. No congestion or rhinorrhea. Mouth/Throat: Mouth: Mucous membranes are moist. Pharynx: No oropharyngeal exudate or posterior oropharyngeal erythema. Comments: Right upper dentition with generalized TTP Gums inflamed Uvula midline Handling secretions Eyes: General: Right eye: No discharge. Left eye: No discharge. Extraocular Movements: Extraocular movements intact. Conjunctiva/sclera: Conjunctivae normal. Pupils: Pupils are equal, round, and reactive to light. Cardiovascular: Rate and Rhythm: Normal rate and regular rhythm. Pulses: Normal pulses. Heart sounds: Normal heart sounds. No murmur heard. No friction rub. Pulmonary: Effort: Pulmonary effort is normal. No respiratory distress. Breath sounds: Normal breath sounds. No stridor. No wheezi (more content not included)... [facility] 05-04-2024 History of Presen t illness Narrative This note was created using NoteWriter. Subjective Amanda Melgar is a 49 year old female. 49 year old female with PMH hyperlipidemia, depression, presents for facial complaints Acute onset X 1 day Right upper teeth +sharp +aching +right sinus pressure Of note, she was at the dentist 2 weeks ago Used Mucinex spray Denies tobacco usage The history is provided by the patient. No second language tutor was used. Sinus Problem This is a new problem. The current episode started yesterday. The problem occurs constantly. The problem has been unchanged. Pertinent negatives include no abdominal pain, anorexia, arthralgias, change in bowel habit, chest pain, chills, congestion, coughing, diaphoresis, fatigue, fever, headaches, joint swelling, myalgias, nausea, neck pain, numbness, rash, sore throat, swollen glands, urinary symptoms, vertigo, visual change, vomiting or weakness. Nothing aggravates the symptoms. She has tried nothing for the symptoms. The treatment provided no relief. PAST MEDICAL HISTORY Diagnosis Date Abnormal Pap smear of cervix Cholecystitis Cholelithiasis Dysthymic disorder Depression (non-psychotic) Hyperlipidemia 04/14/2012 PAST SURGICAL HISTORY Procedure Laterality Date HYSTEROSCOPY ENDOMETRIAL ABLATION 03/27/2023 Karen endometrial ablation LAPS SURG CHOLECYSTECTOMY W/CHOLANGIOGRAPHY 05/16/2009 PAST SURGICAL HISTORY OF RIGHT WRIST SURGERY X 2 TONSILLECTOMY PRIMARY/SECONDARY <AGE 13 Tonsillectomy ALLERGIES Penicillins MEDICATIONS azithromycin (ZITHROMAX Z-VENUS) 250 mg tablet Take 2 tablets by mouth once daily for 1 day, then 1 tablet once daily for 4 days ascorbic acid/collagen hydr (COLLAGEN SKIN RENEWAL ORAL) Take by mouth. BIOTIN ORAL Take by mouth once daily. docosahexaenoic acid/epa (FISH OIL ORAL) Take by mouth once daily. mv,Ca,min/iron/FA/guarana/caff (ONE-A-DAY WOMEN'S ACTIVE ORAL) Take by mouth. diphenhydramine HCl (BENADRYL ORAL) Take by mouth. FAMILY HISTORY Problem Relation Age of Onset Hypertension Mother Lipids Mother other (ADDISONS DISEASE) Mother Ischemic Heart Disease Mother Lipids Father Prostate Cancer Father Thyroid Brother Also Down's Syndrome other (pace maker) Brother Stroke Brother Lipids Brother Cancer Maternal Grandmother COPD Maternal Grandfather Breast Cancer Maternal Aunt Social History Tobacco Use Smoking status: Never Smokeless tobacco: Never Vaping Use Vaping status: Never Used Substance Use Topics Alcohol use: Yes Comment: wine Drug use: No Review of Systems Constitutional: Negative for chills, diaphoresis, fatigue and fever. HENT: Negative for congestion and sore throat. Eyes: Negative for pain, discharge, redness and itching. Respiratory: Negative for cough. Cardiovascular: Negative for chest pain. Gastrointestinal: Negative for abdominal pain, anorexia, change in bowel habit, nausea and vomiting. Musculoskeletal: Negative for arthralgias, joint swelling, myalgias and neck pain. Skin: Negative for color change, pallor and rash. Allergic/Immunologic: Negative for environmental allergies, food allergies and immunocompromised state. Neurological: Negative for dizziness, vertigo, facial asymmetry, weakness, numbness and headaches. Hematological: Negative for adenopathy. Does not bruise/bleed easily. Psychiatric/Behavioral: Negative for agitation and behavioral problems. Objective BP 122/68 Pulse 78 Temp 36.1 C (97 F) Resp 16 Wt 55.2 kg (121 lb 11.1 oz) LMP 03/11/2024 (Within Days) SpO2 96% BMI 23.57 kg/m Physical Exam Vitals and nursing note reviewed. Constitutional: General: She is not in acute distress. Appearance: Normal appearance. She is normal weight. She is not ill-appearing, toxic-appearing or diaphoretic. HENT: Head: Normocephalic and atraumatic. Comments: Right maxillary TTP Right Ear: Ear canal and external ear normal. Left Ear: Ear canal and external ear normal. Nose: Nose normal. No congestion or rhinorrhea. Mouth/Throat: Mouth: Mucous membranes are moist. Pharynx: No oropharyngeal exudate or posterior oropharyngeal erythema. Comments: Right upper dentition with generalized TTP Gums inflamed Uvula midline Handling secretions Eyes: General: Right eye: No discharge. Left eye: No discharge. Extraocular Movements: Extraocular movements intact. Conjunctiva/sclera: Conjunctivae normal. Pupils: Pupils are equal, round, and reactive to light. Cardiovascular: Rate and Rhythm: Normal rate and regular rhythm. Pulses: Normal pulses. Heart sounds: Normal heart sounds. No murmur heard. No friction rub. Pulmonary: Effort: Pulmonary effort is normal. No respiratory distress. Breath sounds: Normal breath sounds. No stridor. No wheezing, rhonchi or rales. Chest: Chest wall: No tenderness. Abdominal: General: Abdomen is flat. There is no distension. Palpations: Abdomen is soft. There is no mass. Tenderness: There is no abdominal tenderness. There is no right CVA tenderness, left CVA tenderness, guarding or rebound. Hernia: No hernia is present. Musculoskeletal: General: No swelling, tenderness, deformity or signs of injury. Normal range of motion. Cervical back: Normal range of motion and neck supple. No rigidity. Right lower leg: No edema. Left lower leg: No edema. Lymphadenopathy: Cervical: Cervical adenopathy present. Skin: General: Skin is warm and dry. Coloration: Skin is not jaundiced or pale. Findings: No bruising, erythema, lesion or rash. Neurological: General: No focal deficit present. Mental Status: She is alert and oriented to person, place, and time. Cranial Nerves: No cranial nerve deficit. Sensory: No sensory deficit. Motor: No weakness. Coordination: Coordination normal. Gait: Gait normal. Psychiatric: Mood and Affect: Mood normal. Behavior: Behavior normal. Thought Content: Thought content normal. Judgment: Judgment normal. Assessment and Plan ASSESSMENT/PLAN: 1. Pain, dental - ICD9: 525.9, ICD10: K08.89 (primary diagnosis) X a few days No red flags No trismus Will cover with Zithromax given PCN allergy 2. Rhinosinusitis - ICD9: 473.9, ICD10: J32.9 X 2 days - The patient should also be given OTC cough and cold meds as needed, warm salt water gargles, throat lozenges and/or OTC throat spray as needed, and nasal saline gtts and suction prn for the first 5-7 days of treatment. - Supportive care with plenty of fluids, rest, and analgesia prn. - Follow up in 3-5 days if symptoms persist or worsen. Zeny Skaggs APRN.RESIDENTIAL TEAM LEADER documented in this encounter [facility] 04-20-2024 Telephone encounter Note Pt notified of results and instructions. Pt verbalizes understanding. Pt will call back at a later date to schedule US. Physical appointment scheduled at this time. Pedro Rangel LPN [facility] 04-20-2024 Miscellaneous Notes Pt notified of results and instructions. Pt verbalizes understanding. Pt will call back at a later date to schedule US. Physical appointment scheduled at this time. Pedro Rangel LPN Let patient know that additional view of breast show a complex cyst. Likely benign but requires repeat imaging in 6 months to confirm Also patient is past due for physical with PCP team. Irene Beltrán PA-C documented in this encounter [facility] 04-20-2024 Telephone encounter Note Let patient know that additional view of breast show a complex cyst. Likely benign but requires repeat imaging in 6 months to confirm Also patient is past due for physical with PCP team. Irene Beltrán PA-C [facility] 04-20-2024 History of Presen t illness Narrative Radiology Service Progress Note PATIENT NAME: Amanda Melgar DATE OF SERVICE: April 20, 2024 TIME: 2:23 PM PATIENT IDENTITY VERIFICATION COMPLETED USING TWO (2) IDENTIFIERS: Name and Date of confirmed by patient verbally. FALL SCREENING: Has the patient had 2 falls in the last year or 1 fall with injury or currently using an Ambulatory Assistive Device (Walker, Cane, Wheelchair, Crutches, etc.)? No PATIENT GENDER DATA: Assigned female at . status: : No status: NO. PATIENT RELEVANT IMPLANT DATA REVIEWED: Not Applicable PATIENT PRESENTS WITH AN IMPLANTABLE OR ATTACHED EXCELLENCE COACH: No RADIOLOGY DEPARTMENT: Ultrasound PERIPHERAL IV DATA: Not applicable SIGNED BY: Taylor Clancy RDMS April 20, 2024 2:23 PM documented in this encounter [facility] 04-20-2024 Note HNO ID: [id number] Author: TAYLOR CLANCY RDMS Service: ? Author Type: Nickel Plant Operator Type: Progress Notes Filed: 04/20/2024 14:23 Note Text: Radiology Service Progress Note PATIENT NAME: Amanda Melgar DATE OF SERVICE: April 20, 2024 TIME: 2:23 PM PATIENT IDENTITY VERIFICATION COMPLETED USING TWO (2) IDENTIFIERS: Name and Date of confirmed by patient verbally. FALL SCREENING: Has the patient had 2 falls in the last year or 1 fall with injury or currently using an Ambulatory Assistive Device (Walker, Cane, Wheelchair, Crutches, etc.)? No PATIENT GENDER DATA: Assigned female at . status: : No status: NO. PATIENT RELEVANT IMPLANT DATA REVIEWED: Not Applicable PATIENT PRESENTS WITH AN IMPLANTABLE OR ATTACHED EXCELLENCE COACH: No RADIOLOGY DEPARTMENT: Ultrasound PERIPHERAL IV DATA: Not applicable SIGNED BY: Taylor Clancy RDMS April 20, 2024 2:23 PM [facility] 04-20-2024 History of Presen t illness Narrative Radiology Service Progress Note PATIENT NAME: Amanda Melgar DATE OF SERVICE: April 20, 2024 TIME: 10:44 AM PATIENT IDENTITY VERIFICATION COMPLETED USING TWO (2) IDENTIFIERS: Name and Date of confirmed by patient verbally. FALL SCREENING: Has the patient had 2 falls in the last year or 1 fall with injury or currently using an Ambulatory Assistive Device (Walker, Cane, Wheelchair, Crutches, etc.)? No PATIENT GENDER DATA: Assigned female at . status: : No status: NO. PATIENT RELEVANT IMPLANT DATA REVIEWED: Not Applicable PATIENT PRESENTS WITH AN IMPLANTABLE OR ATTACHED EXCELLENCE COACH: No RADIOLOGY DEPARTMENT: Mammography PERIPHERAL IV DATA: Not applicable SIGNED BY: THALIA Brown) April 20, 2024 10:44 AM documented in this encounter [facility] 04-20-2024 Note HNO ID: [id number] Author: MARLENE JAMES RT(R) Service: ? Author Type: Technologist Type: Progress Notes Filed: 04/20/2024 10:44 Note Text: Radiology Service Progress Note PATIENT NAME: Amanda Melgar DATE OF SERVICE: April 20, 2024 TIME: 10:44 AM PATIENT IDENTITY VERIFICATION COMPLETED USING TWO (2) IDENTIFIERS: Name and Date of confirmed by patient verbally. FALL SCREENING: Has the patient had 2 falls in the last year or 1 fall with injury or currently using an Ambulatory Assistive Device (Walker, Cane, Wheelchair, Crutches, etc.)? No PATIENT GENDER DATA: Assigned female at . status: : No status: NO. PATIENT RELEVANT IMPLANT DATA REVIEWED: Not Applicable PATIENT PRESENTS WITH AN IMPLANTABLE OR ATTACHED EXCELLENCE COACH: No RADIOLOGY DEPARTMENT: Mammography PERIPHERAL IV DATA: Not applicable SIGNED BY: RT Kevin(R) April 20, 2024 10:44 AM [facility] 04-07-2024 Telephone encounter Note Pt notified of same. Pt verbalizes understanding. Pt was assisted in transfer to schedule appointment. Pedro Rangel LPN [facility] 04-07-2024 Miscellaneous Notes Pt notified of same. Pt verbalizes understanding. Pt was assisted in transfer to schedule appointment. Pedro Rangel LPN There is some asymmetry in left breast on mammogram. Additional views needed. Orders placed. documented in this encounter [facility] 04-07-2024 Telephone encounter Note There is some asymmetry in left breast on mammogram. Additional views needed. Orders placed. [facility] 04-06-2024 History of Presen t illness Narrative Radiology Service Progress Note PATIENT NAME: Amanda Melgar DATE OF SERVICE: April 06, 2024 TIME: 11:46 AM PATIENT IDENTITY VERIFICATION COMPLETED USING TWO (2) IDENTIFIERS: Name and Date of confirmed by patient verbally. FALL SCREENING: Has the patient had 2 falls in the last year or 1 fall with injury or currently using an Ambulatory Assistive Device (Walker, Cane, Wheelchair, Crutches, etc.)? No PATIENT GENDER DATA: Assigned female at . status: : No status: NO. PATIENT RELEVANT IMPLANT DATA REVIEWED: Not Applicable PATIENT PRESENTS WITH AN IMPLANTABLE OR ATTACHED EXCELLENCE COACH: No RADIOLOGY DEPARTMENT: Mammography PERIPHERAL IV DATA: Not applicable SIGNED BY: Kwabena Wheeler April 06, 2024 11:46 AM documented in this encounter [facility] 04-06-2024 Note HNO ID: [id number] Author: NIKKI CHAVIRA Mammo Tech Service: ? Author Type: Nickel Plant Operator Type: Progress Notes Filed: 04/06/2024 11:46 Note Text: Radiology Service Progress Note PATIENT NAME: Amanda Melgar DATE OF SERVICE: April 06, 2024 TIME: 11:46 AM PATIENT IDENTITY VERIFICATION COMPLETED USING TWO (2) IDENTIFIERS: Name and Date of confirmed by patient verbally. FALL SCREENING: Has the patient had 2 falls in the last year or 1 fall with injury or currently using an Ambulatory Assistive Device (Walker, Cane, Wheelchair, Crutches, etc.)? No PATIENT GENDER DATA: Assigned female at . status: : No status: NO. PATIENT RELEVANT IMPLANT DATA REVIEWED: Not Applicable PATIENT PRESENTS WITH AN IMPLANTABLE OR ATTACHED EXCELLENCE COACH: No RADIOLOGY DEPARTMENT: Mammography PERIPHERAL IV DATA: Not applicable SIGNED BY: Kwabena Wheeler April 06, 2024 11:46 AM [facility] 04-05-2024 Note HNO ID: [id number] Author: WINSTON SANDERSON MD Service: ? Author Type: Physician Type: Progress Notes Filed: 04/05/2024 14:40 Note Text: Amanda is a 49 year old who presents for an annual gynecologic exam without complaints. Menses: rare, had ablation Menstrual flow: Light Bleeding amount bothersome: No Sexually active: No Last mammogram: ordered Sexually active: Yes OB History T4 L4 SAB0 IAB0 Ectopic0 Multiple0 Live Births4 Comment: Baby girl Baby's name is Paulina Cell Operator History LMP: 03/11/2024 (Within Days), Ablation Age at Menarche: Age at First : Age at Menopause: Cell Operator History Comments: Sexual Activity: Yes; Male; hsuband had vasectomy Contraception: Vasectomy PAST MEDICAL HISTORY Diagnosis Date Abnormal Pap smear of cervix Cholecystitis Cholelithiasis Dysthymic disorder Depression (non-psychotic) Hyperlipidemia 04/14/2012 PAST SURGICAL HISTORY Procedure Laterality Date HYSTEROSCOPY ENDOMETRIAL ABLATION 03/27/2023 Karen endometrial ablation LAPS SURG CHOLECYSTECTOMY W/CHOLANGIOGRAPHY 05/16/2009 PAST SURGICAL [...] Never Smokeless tobacco: Never Vaping Use Vaping status: Never Used Substance Use Topics Alcohol use: Yes Comment: wine Drug use: No REVIEW OF SYSTEMS Abdomen: No abdominal pain, nausea, vomiting, diarrhea, or constipation. No bloating, early satiety, indigestion, or increased flatulence. Bladder: No dysuria, gross hematuria, urinary frequency, urinary urgency, or incontinence. Breast: No breast lumps, nipple d/c, overlying skin changes, redness or skin retraction. Allergies and current medication updated:Yes SENSITIVE EXAM: The sensitive examination was discussed with the Patient or Patient's Authorized Manager Production. As applicable, any other physician, advance practice provider, medical student, or other health professional student that will be observing or involved in the sensitive examination for educational or training purposes was discussed with the Patient or Authorized Manager Production. The Patient or Authorized Manager Production has agreed to proceed with the sensitive examination. (Sensitive examination includes inspection and/or palpation of the breasts, pelvis, prostate and anorectal regions). EXAM: BP 108/74 Ht 5' .25 (1.53m) Wt 120 lb (54.4kg) LMP 03/11/2024 BMI 23.25 kg/(m2). GENERAL: pleasant, female in no apparent distress HEENT: Normocephalic, atraumatic, mucus membranes moist, and no lesions NECK: Supple, full range of motion, no adenopathy, and thyroid normal DERMATOLOGY: Normal, without lesions, non-icteric, and non-hirsute BREAST: soft, non-tender, symmetric, no dominant mass, normal nipple-areolar complex, no lymphadenopathy, and no nipple discharge CHEST: Normal inspiratory effort ABDOMEN: soft, non-tender, and no masses PELVIC: external genitalia normal, normal Bartholin's glands, urethra, [place]'s glands, no vulvar lesions, no cervical lesions, good vaginal support, physiologic discharge present, normal appearing perineal body and perianal region BIMANUAL: uterus normal size, shape and consistency, no adnexal masses, and non-tender RECTOVAGINAL: deferred. NEURO: alert and oriented x3,exam grossly non-focal EXTREMITIES: normal ASSESSMENT/PLAN: 1) Health maintenance: Pap done with HPV. Mammogram ordered. 2) Contraception: vasectomy. Contraceptive options reviewed and information provided. 3) STD screening: Declined STD check. 4) Follow up one year or sooner as needed Winston Sanderson MD [facility] 04-05-2024 History of Presen t illness Narrative Amanda is a 49 year old who presents for an annual gynecologic exam without complaints. Menses: rare, had ablation Menstrual flow: Light Bleeding amount bothersome: No Sexually active: No Last mammogram: ordered Sexually active: Yes OB History T4 L4 SAB0 IAB0 Ectopic0 Multiple0 Live Births4 Comment: Baby girl Baby's name is Paulina Cell Operator History LMP: 03/11/2024 (Within Days), Ablation Age at Menarche: Age at First : Age at Menopause: Cell Operator History Comments: Sexual Activity: Yes; Male; hsuband had vasectomy Contraception: Vasectomy PAST MEDICAL HISTORY Diagnosis Date Abnormal Pap smear of cervix Cholecystitis Cholelithiasis Dysthymic disorder Depression (non-psychotic) Hyperlipidemia 04/14/2012 PAST SURGICAL HISTORY Procedure Laterality Date HYSTEROSCOPY ENDOMETRIAL ABLATION 03/27/2023 Karen endometrial ablation LAPS SURG CHOLECYSTECTOMY W/CHOLANGIOGRAPHY 05/16/2009 PAST SURGICAL [...] Never Smokeless tobacco: Never Vaping Use Vaping status: Never Used Substance Use Topics Alcohol use: Yes Comment: wine Drug use: No REVIEW OF SYSTEMS Abdomen: No abdominal pain, nausea, vomiting, diarrhea, or constipation. No bloating, early satiety, indigestion, or increased flatulence. Bladder: No dysuria, gross hematuria, urinary frequency, urinary urgency, or incontinence. Breast: No breast lumps, nipple d/c, overlying skin changes, redness or skin retraction. Allergies and current medication updated:Yes SENSITIVE EXAM: The sensitive examination was discussed with the Patient or Patient's Authorized Manager Production. As applicable, any other physician, advance practice provider, medical student, or other health professional student that will be observing or involved in the sensitive examination for educational or training purposes was discussed with the Patient or Authorized Manager Production. The Patient or Authorized Manager Production has agreed to proceed with the sensitive examination. (Sensitive examination includes inspection and/or palpation of the breasts, pelvis, prostate and anorectal regions). EXAM: BP 108/74 Ht 5' .25 (1.53m) Wt 120 lb (54.4kg) LMP 03/11/2024 BMI 23.25 kg/(m^2). GENERAL: pleasant, female in no apparent distress HEENT: Normocephalic, atraumatic, mucus membranes moist, and no lesions NECK: Supple, full range of motion, no adenopathy, and thyroid normal DERMATOLOGY: Normal, without lesions, non-icteric, and non-hirsute BREAST: soft, non-tender, symmetric, no dominant mass, normal nipple-areolar complex, no lymphadenopathy, and no nipple discharge CHEST: Normal inspiratory effort ABDOMEN: soft, non-tender, and no masses PELVIC: external genitalia normal, normal Bartholin's glands, urethra, [place]'s glands, no vulvar lesions, no cervical lesions, good vaginal support, physiologic discharge present, normal appearing perineal body and perianal region BIMANUAL: uterus normal size, shape and consistency, no adnexal masses, and non-tender RECTOVAGINAL: deferred. NEURO: alert and oriented x3,exam grossly non-focal EXTREMITIES: normal ASSESSMENT/PLAN: 1) Health maintenance: Pap done with HPV. Mammogram ordered. 2) Contraception: vasectomy. Contraceptive options reviewed and information provided. 3) STD screening: Declined STD check. 4) Follow up one year or sooner as needed Winston Sanderson MD documented in this encounter [facility] 01-13-2024 Note Patient Outreach (IN TMMN) AMANDA PATEL ([id number]) 1975 F Date Time Provider Department 01/13/24 GASPER RAMOS During your visit today, we recorded the following information about you: Allergies As of Date: 01/13/2024 Noted Allergy Reaction PENICILLINS 02/26/2006 11 - Vomiting Comments: CHILDHOOD REACTION Date Reviewed: 03/24/2023 Reviewed by: Winston Sanderson MD - Fully Assessed Visit Diagnosis:Encounter for screening mammogram for breast cancer [Z12.31] Order(s):LILA SCREENING W ANDREAS [[id number]] Order #: [id number] FUTURE Prescriptions as of 01/18/2024 - ascorbic acid/collagen hydr (COLLAGEN SKIN RENEWAL [...] as needed. Problem List As Of Date 01/13/2024 Noted Resolved ALLERGIC RHINITIS NOS [J30.9] 08/19/2008 [...] adult exam [Z00.00] 11/25/2021 Encounter Status:Closed by [employer], PRODUSER on 01/18/24 [facility] 03-27-2023 History and physi oksana note Note Date/Time March 24, 2023 2:40pm [facility] Medical Records Department [address] [place] [id number] History & Physical Exam 03/24/23 1440 MR#: [id number] Acct: [id number] Name: ELADIA MELGARAMANDA VILLAGRAN Rep #:[id number] : 1975 48 From: Winston Sanderson MD PCP: GRANT Higuera Status:REG S MA Location: [place] [address] History and Physical Date of Admission: 03/27/23 HPI: The patient is a 48 year old female presenting for pre-operative visit. She is scheduled for hysteroscopy with endometrial ablation, for AUB on 03/24/23. Procedure discussed along with risks, benefits and complications. Other alternatives discussed for management. Consent form signed? Yes. ? ? PAST MEDICAL HISTORY PAST MEDICAL HISTORY Diagnosis Date ? Abnormal Pap smear of cervix ? ? Cholecystitis ? ? Cholelithiasis ? ? Dysthymic disorder ? ? Depression (non-psychotic) ? Hyperlipidemia 04/14/2012 ? ? PAST SURGICAL HISTORY PAST SURGICAL HISTORY Procedure Laterality Date ? LAPS SURG CHOLECYSTECTOMY W/CHOLANGIOGRAPHY ? 05/16/2009 ? PAST SURGICAL HISTORY OF ? ? ? RIGHT WRIST SURGERY X 2 ? TONSILLECTOMY PRIMARY/SECONDARY <AGE 13 ? ? ? Tonsillectomy ? ? ? CURRENT MEDICATIONS Current Outpatient Medications Medication Sig Dispense Refill ? ascorbic acid/collagen hydr (COLLAGEN SKIN RENEWAL ORAL) Take by mouth. ? ? ? BIOTIN ORAL Take by mouth once daily. ? ? ? docosahexaenoic acid/epa (FISH OIL ORAL) Take by mouth once daily. ? ? ? mv,Ca,min/iron/FA/guarana/caff (ONE-A-DAY WOMEN'S ACTIVE ORAL) Take by mouth. ? ? ? diphenhydramine HCl (BENADRYL ORAL) Take by mouth. ? ? ? acetaminophen (TYLENOL) 325 mg tablet Take 650 mg by mouth every 6 hours as needed. (Patient not taking: Reported on 01/27/2023) ? ? ? No current facility-administered medications for this visit. ? ? ALLERGIES: Penicillins ? PERSONAL HISTORY: SOCIAL HISTORY Social History ? Tobacco Use ? Smoking status: Never ? Smokeless tobacco: Never Vaping Use ? Vaping Use: Never used Substance Use Topics ? Alcohol use: Yes ? ? Comment: wine ? Drug use: No ? FAMILY HISTORY: FAMILY HISTORY FAMILY HISTORY Problem Relation Age of Onset ? Hypertension Mother ? ? Lipids Mother ? ? other (ADDISONS DISEASE) Mother ? ? Ischemic Heart Disease Mother ? ? Lipids Father ? ? Prostate Cancer Father ? ? Thyroid Brother ? ? Also Down's Syndrome ? other (pace maker) Brother ? ? Stroke Brother ? ? Lipids Brother ? ? Cancer Maternal Grandmother ? ? COPD Maternal Grandfather ? ? Breast Cancer Maternal Aunt ? ? ? REVIEW OF SYMPTOMS: GENERAL: denies fevers or chills ENDOCRINOLOGY: has not been on steroids Cardiology : denies palpitations or chest pain Respiratory: denies SOB or cough Hematology: denies history of prolonged bleeding or easy bruising or VTE Allergy: Denies history of personal or family history of allergy to anesthesia ? PHYSICAL EXAMINATION: ? VITALS: Last menstrual period 02/21/2023. ? GENERAL: The patient is well nourished, well hydrated in no acute distress. , The patient is oriented to time, place, and person. NECK: Supple. No lynphadenopathy, normal thyroid, no thyromegaly. LUNGS: Clear to auscultation bilaterally. no wheezes, rhonchi or rales HEART: Regular rate and rhythm, Normal heart sounds, and No murmurs or gallops ? IMPRESSION: menorrhagia ? ? PLAN: The risks/benefits/alternatives and personal involved for the planned hysteroscopy with endometrial ablation were reviewed with the patient. Her questions were answered to her satisfaction and she desires to proceed. Consentwas signed. I reviewed with her postop instructions and expectations. ? ? I have reviewed and updated past medical and surgical history, medications and allergies Assessment & Plan Assessment/Plan (1) Menorrhagia: 03/26/23 1750 <Electronically signed by Winston Sanderson MD> Cosigner Signature (if applicable): CC: Dr. Winston Sanderson MD; GRANT Higuera~ Signed ADDENDUM by Dr. Winston Sanderson MD on 03/27/23 at 1059 Addendum UPDATE- I have seen the patient and performed any clinically relevant updates to the history and physical exam. 03/27/23 1059<Electronically signed by Winston Sanderson MD> Cosigner Signature (if applicable): cc: Dr. Winston Sanderson MD; GRANT Higuera ~* Signed [facility] Work Phone: 1(110) 807-373201-12-2024 Procedure [facility] 03-04-2023 Miscellaneous Notes* Telephone Encounter - Kathy Bello RN - 03/04/2023 11:27 AM EST Patient wants 03/27/23. Pre op scheduled for 03/24/23. Kathy Bello RN * Telephone Encounter - Malissa Diaz LPN - 03/03/2023 3:40 PM EST Left message to call office. Next available surgery dates with Dr. Sanderson are 03/27/23 and 04/10/23.Patient will need a pre-operative appointment scheduled [facility] History of Present illness Narrative* Winston Sanderson MD - 01/27/2023 4:01 PM EST Amanda is a 47 year old who [...] Comment: Baby girl Baby's name is Paulina Cell Operator History LMP: 01/01/2023 (Within Days), Having periods Age at Menarche: Age at First : Age at Menopause: Cell Operator History Comments: Sexual Activity: Yes; Male; [...] external genitalia normal, normal Bartholin's glands, urethra, [place]'s glands, no vulvar lesions, no cervical lesions, [...] EMB Winston Sanderson MD [facility] [facility] [place] Miscellaneous Notes* Telephone Encounter - Pedro Rangel LPN - 11/26/2021 9:22 AM EDT Patient notified of results and provider's instructions. Patient verbalizes understanding. Pedro Rangel LPN * Telephone Encounter - Irene Beltrán PA-C - 11/26/2021 8:50 AM EDT Let patient know that cholesterol has improved. LDL down to 167 from 181 however this is still high. Goal would be under 130. I would be okay to give her 1 more year and to work on diet. If next yearis still high, may consider medications. Rest of her labs were all normal. [facility] [place] Instructions* Patient Instructions* Irene Beltrán PA-C - 11/25/2021 9:36 AM EDT Consider colon cancer screening and let us know if you would like to pursue. [facility] [place] History of Present illness Narrative* Irene Beltrán PA-C - 11/25/2021 9:26 AM EDT Chief Complaint Patient presents with: Physical HPI Amanda Valentina Eladia Melgar is a 46 year old female [...] (Patient not taking: Reported on 11/12/2020 ) Nggqtfgy-Gl-Zpj-Fe-FA ( VITAMIN) Tab Take 1 tablet by [...] F) Resp 16 Ht 153 cm (5' 0.24) Wt 53.5 kg (118 lb) LMP 11/21/2021 [...] diet of 1000 mg/day for under 50, 1200- 1500 mg/day for 50+ - Colorectal cancer screening [...] A1C Irene Beltrán PA-C documented [facility] [place] Miscellaneous Notes* Telephone Encounter - Heather Marley RN - 06/06/2021 1:31 PM EDT Pt called and is notified of providers results and instructions. Pt voices understanding. Heather Marley RN * Telephone Encounter - Loida Hester APRN.CNP - 06/05/2021 3:49 PM EDT Can you please call the patient and [...] has any questions. Thank you. Loida Hester APRN.LYN documented [facility] [place] History of Present illness Narrative* Winston Sanderson MD - 06/05/2021 2:17 PM EDT Amanda is a 46 year old who presents for an annual gynecologic exam with complaints, heaviermenses. Menses: cycles every 28-30 days and 5-6 days of flow. Contraception: vasectomy HPV vaccine: No Last Pap: 02/08/2020 normal HPV: 02/07/2020 negative History of abnormal pap: Yes Last mammogram: never Sexually active: Yes OB History T4 L4 SAB0 IAB0 Ectopic0 Multiple0 Live Births4 Comment: Baby girl Baby's name is Paulina Cell Operator History LMP: 11/06/2020, Having periods Age at Menarche: Age at First : Age at Menopause: Cell Operator History Comments: Sexual Activity: Yes; Male; [...] external genitalia normal, normal [place]th[place]'s glands, urethra, [place]'s glands, no vulvar lesions, no cervical lesions, [...] needed Winston Sanderson MD documented [facility] encounter[facility] [place] History of Past illness Narrative* Problem Noted [...] Patient states her last menstrual period was pumping supervisor and shorter than normal. An ultrasound was ordered for uncertain dates by Dr. Sanderson. TKRN History of shoulder dystocia in prior , currently 11/30/2012 08/18/2013 Overview: 11/30/2012 Patient has a history of moderate shoulder dystocia with her last . She states that she was told by the production maintenance mechanic the delivered her [facility] child at [facility] that we might have to break the baby's shoulder in order to deliver him. Patient signed a release of records form to obtain her delivery records from her first delivery at the [facility]. [facility] delivery records from her second child in 2006 obtained and sent to Dr. Winston Sanderson's office for review. TKRN Family history of Down syndrome 11/30/2012 08/18/2013 Overview: 11/30/2012Pt's brother has Down's Syndrome. TKRN Generalized pruritus 02/18/2012 03/03/2013 Choledocholithiasis with chronic cholecystitis 0 05/11/2009 03/03/2013 documented as of this encounter (statuses as of 06/05/2021) [facility] [place] History of Past illness Narrative* Problem Noted [...] Patient states her last menstrual period was pumping supervisor and shorter than normal. An ultrasound was ordered for uncertain dates by Dr. Sanderson. TKRN History of shoulder dystocia in prior , currently 11/30/2012 08/18/2013 Overview: 11/30/2012 Patient has a history of moderate shoulder dystocia with her last . She states that she was told by the production maintenance mechanic the delivered her first child at the [facility] that we might have to break the baby's shoulder in order to deliver him. Patient signed a release of records form to obtain her delivery records from her first delivery at the [facility]. [facility] delivery records from her second child in 2006 obtained and sent to Dr. Wniston Sanderson's office for review. TKRN Family history of Down syndrome 11/30/2012 08/18/2013 Overview: 11/30/2012Pt's brother has Down's Syndrome. TKRN Generalized pruritus 02/18/2012 03/03/2013 Choledocholithiasis with chronic cholecystitis 0 05/11/2009 03/03/2013 documented as of this encounter (statuses as of 06/05/2021) [facility] [place] History of Past illness Narrative* Problem Noted [...] Patient states her last menstrual period was pumping supervisor and shorter than normal. An ultrasound was ordered for uncertain dates by Dr. Sanderson. TKRN History of shoulder dystocia in prior , currently 11/30/2012 08/18/2013 Overview: 11/30/2012 Patient has a history of moderate shoulder dystocia with her last . She states that she was told by the production maintenance mechanic the delivered her first child at the [facility] that we might have to break the baby's shoulder in order to deliver him. Patient signed a release of records form to obtain her delivery records from her first delivery at the [facility]. [facility] delivery records from her second child in 2006 obtained and sent to Dr. Winston Sanderson's office for review. TKRN Family history of Down syndrome 11/30/2012 08/18/2013 Overview: 11/30/2012Pt's brother has Down's Syndrome. TKRN Generalized pruritus 02/18/2012 03/03/2013 Choledocholithiasis with chronic cholecystitis 0 05/11/2009 03/03/2013 documented as of this encounter (statuses as of 06/06/2021) [facility] [place] History of Past illness Narrative* Problem Noted [...] Patient states her last menstrual period was pumping supervisor and shorter than normal. An ultrasound was ordered for uncertain dates by Dr. Sanderson. TKRN History of shoulder dystocia in prior , currently 11/30/2012 08/18/2013 Overview: 11/30/2012 Patient has a history of moderate shoulder dystocia with her last . She states that she was told by the production maintenance mechanic the delivered her first child at the [facility] that we might have to break the baby's shoulder in order to deliver him. Patient signed a release of records form to obtain her delivery records from her [facility] delivery [facility] the [facility]. [facility] delivery records from her second child in 2006 obtained and sent to Dr. Winston Sanderson's office for review. TKRN Family history of Down syndrome 11/30/2012 08/18/2013 Overview: 11/30/2012Pt's brother has Down's Syndrome. TKRN Generalized pruritus 02/18/2012 03/03/2013 Choledocholithiasis with chronic cholecystitis 0 05/11/2009 03/03/2013 documented as of this encounter (statuses as of 11/25/2021) [facility] [place] History of Past illness Narrative* Problem Noted [...] Patient states her last menstrual period was pumping supervisor and shorter than normal. An ultrasound was ordered for uncertain dates by Dr. Sanderson. TKRN History of shoulder dystocia in prior , currently 11/30/2012 08/18/2013 Overview: 11/30/2012 Patient has a history of moderate shoulder dystocia with her last . She states that she was told by the production maintenance mechanic the delivered her first child at the [facility] that we might have to break the baby's shoulder in order to deliver him. Patient signed a release of records form to obtain her delivery records from her [facility] delivery [facility]. [facility] delivery records from her second child in 2006 obtained and sent to Dr. Winston Sanderson's office for review. TKRN Family history of Down syndrome 11/30/2012 08/18/2013 Overview: 11/30/2012Pt's brother has Down's Syndrome. TKRN Generalized pruritus 02/18/2012 03/03/2013 Choledocholithiasis with chronic cholecystitis 0 05/11/2009 03/03/2013 documented as of this encounter (statuses as of 11/26/2021) [facility] [place] History of Past illness Narrative* Problem Noted [...] Patient states her last menstrual period was pumping supervisor and shorter than normal. An ultrasound was ordered for uncertain dates by Dr. Sanderson. TKRN History of shoulder dystocia in prior , currently 11/30/2012 08/18/2013 Overview: 11/30/2012 Patient has a history of moderate shoulder dystocia with her last . She states that she was told by the production maintenance mechanic the delivered her first child at the [facility] that we might have to break the baby's shoulder in order to deliver him. Patient signed a release of records form to obtain her delivery records from her [facility] delivery [facility] the [facility]. [facility] delivery records from her second child in 2006 obtained and sent to Dr. Winston Sanderson's office for review. TKRN Family history of Down syndrome 11/30/2012 08/18/2013 Overview: 11/30/2012Pt's brother has Down's Syndrome. TKRN Generalized pruritus 02/18/2012 03/03/2013 Choledocholithiasis with chronic cholecystitis 0 05/11/2009 03/03/2013 documented as of this encounter (statuses as of 06/23/2022) [facility] [place] History of Past illness Narrative* Problem Noted [...] Patient states her last menstrual period was pumping supervisor and shorter than normal. An ultrasound was ordered for uncertain dates by Dr. Sanderson. TKRN History of shoulder dystocia in prior , currently 11/30/2012 08/18/2013 Overview: 11/30/2012 Patient has a history of moderate shoulder dystocia with her last . She states that she was told by the production maintenance mechanic the delivered her first child at the [facility] that we might have to break the baby's shoulder in order to deliver him. Patient signed a release of records form to obtain her delivery records from her [facility] delivery [facility]. [facility] delivery records from her second child in 2006 obtained and sent to Dr. Winston Sanderson's office for review. TKRN Family history of Down syndrome 11/30/2012 08/18/2013 Overview: 11/30/2012Pt's brother has Down's Syndrome. TKRN Generalized pruritus 02/18/2012 013 Choledocholithiasis with chr onic cholecystitis 05/11/2009 03/03/2013 documented as of this encounter (statuses as of 01/28/2023) [facility] [place] History of Past illness Narrative* Problem Noted [...] Patient states her last menstrual period was pumping supervisor and shorter than normal. An ultrasound was ordered for uncertain dates by Dr. Sanderson. TKRN History of shoulder dystocia in prior , currently 11/30/2012 08/18/2013 Overview: 11/30/2012 Patient has a history of moderate shoulder dystocia with her last . She states that she was told by the production maintenance mechanic the delivered her first child at the [facility] that we might have to break the baby's shoulder in order to deliver him. Patient signed a release of records form to obtain her delivery records from her [facility]. [facility] delivery records from her second child in 2006 obtained and sent to Dr. Winston Sanderson's office for review. TKRN Family history of Down syndrome 11/30/2012 08/18/2013 Overview: 11/30/2012Pt's brother has Down's Syndrome. TKRN Generalized pruritus 02/18/2012 013 Choledocholithiasis with chr onic cholecystitis 05/11/2009 03/03/2013 documented as of this encounter (statuses as of 02/02/2023) [facility] [place] History of Past illness Narrative* Problem Noted [...] Patient states her last menstrual period was pumping supervisor and shorter than normal. An ultrasound was ordered for uncertain dates by Dr. Sanderson. TKRN History of shoulder dystocia in prior , currently 11/30/2012 08/18/2013 Overview: 11/30/2012 Patient has a history of moderate shoulder dystocia with her last . She states that she was told by the production maintenance mechanic the delivered her first child at the [facility] that we might have to break the baby's shoulder in order to deliver him. Patient signed a release of records form to obtain her delivery records from her [facility]. [facility] delivery records from her second child in 2006 obtained and sent to Dr. Winston Sanderson's office for review. TKRN Family history of Down syndrome 11/30/2012 08/18/2013 Overview: 11/30/2012Pt's brother has Down's Syndrome. TKRN Generalized pruritus 02/18/2012 013 Choledocholithiasis with chr onic cholecystitis 05/11/2009 03/03/2013 documented as of this encounter (statuses as of 03/06/2023) [facility] Author Winston Sanderson [facility] March 27, 2023 12:01pm Note Date/Time March 27, 2023 1 2:01pm [facility] Medical Records Department [address] [place] [address] Instructions for Home/Discharge Instructions 03/27/23 1200 MR#: [id number] Acct: [id number] Name: AMANDA PATEL Rep #:[id number] : 1975 48 From: Winston Sanderson MD PCP: GRANT Higuera Status:REG S DC Discharge Instructions Diet Discharge Diet: No restrictions Activity Discharge Activity: May Drive (tomorrow) and May Shower Return to work on:: 03/30/23 May resume sexual activity in: 2 weeks Lifting Restrictions: none Dressing / Incision Call your doctor if your incision/area has: Sudden Increased Bleeding and Foul Smelling Discharge Call your doctor if you observe: Fever of 101 or Higher and Using more than 1 pad per hour (for 2 hrs in a row) Follow Up Care Please Follow Up With: Winston Sanderson MD When: No postop appointment is needed. Call [phone] or send a [employer] message to make an appointment or with any concerns. Test Results: Test results from this visit will be discussed in further detail at your follow- up appointment, if applicable. Discharge Plan Admission Primary Reason for Your Visit: Hysteroscopy with endometrial ablation Attending Provider: Winston Sanderson Primary Care Provider: Irene Beltrán Discharge Orders/Prescriptions Prescriptions: No Action omega-3 fatty acids [Fish Oil Concentrate] 1,000 mg capsule 1,000 mg PO DAILY biotin 5,000 mcg tablet,disintegrating 10,000 mcg PO DAILY qgddjpcytqxr-Nl-hvrj-minerals 18-0.4 mg tablet 1 tab PO DAILY diphenhydramine HCl [Benadryl] 25 mg capsule 25 mg PO QHS Disposition Disposition (needs filled in before D/C Order can be placed): Home, Self Care 03/27/23 1201<Electronically signed by Winston Sanderson MD>Winston Sanderson MD CC: GRANT Higuera ~ Signed [facility] Work Phone: [employer] note* Diagnosis Abnormal mammogram Abnormal mammogram, unspecified [facility] Diagnosis Encounter for gynecological examination (general) (routine) without abnormal findings Encounter for screening mammogram for breast cancer [facility] Well adult exam- Primary Routine general medical examination at a health care facility Hyperlipidemia LDL goal <130 Other and unspecified hyperlipidemia Screening for diabetes mellitus [facility] Diagnosis Encounter for screening mammogram for breast cancer [facility] Diagnosis Encounter for gynecological examination with abnormal finding- Primary Routine gynecological examination Encounter for screening mammogram for breast cancer Menorrhagia with regular cycle Excessive or frequent menstruation [facility] Diagnosis Encounter for screening mammogram for breast cancer [facility] Diagnosis Onset Date Resolution Status Menorrhagia acute [facility] Work Phone: evaluation note* Diagnosis Encounter for screening mammogram for breast cancer [facility] Encounter for gynecological examination (general) (routine) without abnormal findings- Primary Screening for cervical cancer Screening for malignant neoplasm of the cervix Encounter for screening for human papillomavirus (HPV) Special screening examination for human papillomavirus (HPV) Encounter for screening mammogram for breast cancer [facility] Diagnosis Abnormal mammogram- Primary Abnormal mammogram, unspecified [facility] Diagnosis Cyst of left breast- Primary Abnormal mammogram Abnormal mammogram, unspecified [facility] Diagnosis Abnormal mammogram Abnormal mammogram, unspecified [facility] Diagnosis Pain, dental- Primary Unspecified disorder of the teeth and supporting structures Rhinosinusitis Unspecified sinusitis (chronic) [facility]* Diagnosis Wellness examination- Primary Hyperlipidemia LDL goal <130 Other and unspecified hyperlipidemia Screening for depression Encounter for screening examination for other mental health and behavioral disorders Special screening examination for viral disease Special screening examination for unspecified viral disease Screening for colon cancer Special screening for malignant neoplasms, colon Screening for diabetes mellitus [facility] this [facility]* Diagnosis Hyperlipidemia LDL goal <130- Primary Other and unspecified hyperlipidemia documented in this encounter [facility] Discharge instructions Additional Instructions Implant Used?: [facility] Work Phone: Reason for referral (narrative)* Diagnostic Procedure Only (Routine) - Closed Specialty Diagnoses / Procedures Referred By Rocio gimenez Referred To Contact [facility] Diagnoses Abnormal mammogram Procedures US BREAST LTD RT US BREAST UNI REAL TIME WITH IMAGE LIMITED Loida Hester APRN.CNP [address] [place] [address] [facility] [address] [place] [address] Referral ID Status Reason Start Date Expiration Date V isits Requested Visits Authorized [id number] Closed Auto-Generate d Referral 04/29/2021 05/29/2022 1 1 [facility] for referral (narrative)* Diagnostic Procedure Only (Routine) - Pending Review Specialty Diagnoses / Procedures Referred By Rocio gimenez Referred To Contact [facility] Diagnoses Encounter for gynecological examination (general) (routine) without abnormal findings Encounter for screening mammogram for breast cancer Procedures LILA SCREENING W ANDREAS SCREENING DIGITAL BREAST TOMOSYNTHESIS BI SCREENING MAMMOGRAPHY BI 2-VIEW BREAST INC Winston Hoskins MD [address] [place] [address] [facility] [address] [place] [address] Referral ID Status Reason Start Date Expiration Date Visits Requested Visits Authorized [id number] Pending Review Auto-Generat ed Referral 06/05/2021 07/05/2022 1 1 [facility] for referral (narrative)* Diagnostic Procedure Only (Routine) - Pending Review Specialty Diagnoses / Procedures Referred By Rocio t Referred To Contact [facility] Diagnoses Encounter for screening mammogram for breast cancer Procedures LILA SCREENING SCREENING MAMMOGRAPHY BI 2-VIEW BREAST INC CAD Gasper Ramos MD [address] [place] [address] [facility] [address] [place] [address] Referral ID Status Reason Start Date Expiration Date Visits Requested Visits Authorized [id number] Pending Review Auto-Generat ed Referral 06/18/2022 07/18/2023 1 1 [facility] for referral (narrative)* Outpatient Procedure (Routine) - Pending Review Specialty Diagnoses / Procedures Referred By Contac t Referred To Contact [facility] Diagnoses Menorrhagia with regular cycle Procedures ENDOMETRIAL BIOPSY ENDOMETRIAL BX W/WO ENDOCERVIX BX W/O DILAT SPX Winston Sanderson MD [address] [place] [address] [facility] [address] [place] [id number] Referral ID Status Reason Start Date Expiration Date Visits Requested Visits Authorized [id number] Pending Review Auto-Generat ed Referral 3 01/27/2024 1 1 * Diagnostic Procedure Only (Routine) - Authorized Specialty Diagnoses / Procedures Referred By Xiomaraac t Referred To Contact [facility] Diagnoses Menorrhagia with regular cycle Procedures US FEMALE PELVIS TRANSVAG US TRANSVAGINAL Winston Sanderson MD [address] [place] [address] [place] [address] Referral ID Status Reason Start Date Expiration Date Visits Requested Visits Authorized [id number] Authorized Auto-Generat ed Referral 3 02/26/2024 1 1 [facility] for referral (narrative)* Diagnostic Procedure Only (Routine) - Pending Review Specialty Diagnoses / Procedures Referred By Rocio gimenez Referred To Contact [facility] Diagnoses Encounter for screening mammogram for breast cancer Procedures LILA SCREENING SCREENING MAMMOGRAPHY BI 2-VIEW BREAST INC CAD Gasper Ramos MD [address] [place] [address] [facility] [address] [place] [address] Referral ID Status Reason Start Date Expiration Date Visits Requested Visits Authorized [id number] Pending Review Auto-Generat ed Referral 3 02/27/2024 1 1 [facility] for referral (narrative)* Diagnostic Procedure Only (Routine) - New Request Specialty Diagnoses / Procedures Referred By Rocio t Referred To Contact [facility] Diagnoses Encounter for screening mammogram for breast cancer Procedures LILA SCREENING W ANDREAS SCREENING DIGITAL BREAST TOMOSYNTHESIS BI SCREENING MAMMOGRAPHY BI 2-VIEW BREAST INC CAD Gasper Ramos MD [address] [place] [address] [facility] [address] [place] [address] Referral ID Status Reason Start Date Expiration Date Visits Requested Visits Authorized [id number] New Request Auto-Generat ed Referral 4 02/11/2025 1 1 [facility] for referral (narrative)* Diagnostic Procedure Only (Routine) - New Request Specialty Diagnoses / Procedures Referred By Xiomaraac t Referred To Contact [facility] Diagnoses Encounter for gynecological examination (general) (routine) without abnormal findings Encounter for screening mammogram for breast cancer Procedures LILA SCREENING W ANDREAS SCREENING DIGITAL BREAST TOMOSYNTHESIS BI SCREENING MAMMOGRAPHY BI 2-VIEW BREAST INC CAD Winston Sanderson MD [address] [place] [address] [facility] [address] [place] [address] Referral ID Status Reason Start Date Expiration Date Visits Requested Visits Authorized [id number] New Request Auto-Generat ed Referral 04/05/2024 05/05/2025 1 1 [facility] for referral (narrative)* Diagnostic Procedure Only (Routine) - Authorized Specialty Diagnoses / Procedures Referred By Contac t Referred To Contact [facility] Diagnoses Abnormal mammogram Procedures LILA DIAG W ANDREAS LEFT DIGITAL BREAST TOMOSYNTHESIS UNILATERAL DIAGNOSTIC MAMMOGRAPHY COMPUTER-AIDED DETCJ UNI Irene Beltrán PA-C [address] [place] [address] [facility] [address] [place] [address] Referral ID Status Reason Start Date Expiration Date Visits Requested Visits Authorized [id number] Authorized Auto-Generat ed Referral 04/07/2024 05/07/2025 1 1 * Diagnostic Procedure Only (Routine) - Authorized Specialty Diagnoses / Procedures Referred By Rocio t Referred To Contact [facility] Diagnoses Abnormal mammogram Procedures US BREAST LTD LEFT US BREAST UNI REAL TIME WITH IMAGE LIMITED Irene Beltrán PA-C [address] [place] [address] [facility] [address] [place] [address] Referral ID Status Reason Start Date Expiration Date Visits Requested Visits Authorized [id number] Authorized Auto-Generat ed Referral 04/07/2024 05/07/2025 1 1 [facility] for referral (narrative)* Diagnostic Procedure Only (Routine) - New Request Specialty Diagnoses / Procedures Referred By Rocio t Referred To Contact [facility] Diagnoses Cyst of left breast Abnormal mammogram Procedures LILA DIAG W ANDREAS LEFT DIGITAL BREAST TOMOSYNTHESIS UNILATERAL DIAGNOSTIC MAMMOGRAPHY COMPUTER-AIDED DETCJ UNI Irene Beltrán PA-C [address] [place] [address] [facility] [address] [place] [address] Referral ID Status Reason Start Date Expiration Date Visits Requested Visits Authorized [id number] New Request Auto-Generat ed Referral 04/20/2024 05/20/2025 1 1 * Diagnostic Procedure Only (Routine) - New Request Specialty Diagnoses / Procedures Referred By Rocio gimenez Referred To Contact [facility] Diagnoses Cyst of left breast Abnormal mammogram Procedures US BREAST LTD LEFT US BREAST UNI REAL TIME WITH IMAGE LIMITED Irene Beltrán PA-C [address] [place] [address] [facility] [address] [place] [address] Referral ID Status Reason Start Date Expiration Date Visits Requested Visits Authorized [id number] New Request Auto-Generat ed Referral 04/20/2024 05/20/2025 1 1 [facility] Diagnostic Procedure Only (Routine) - Closed Specialty Diagnoses / Procedures Referred By Rocio gimenez Referred To Contact [facility] Diagnoses Abnormal mammogram Procedures LILA DIAG W ANDREAS LEFT DIGITAL BREAST TOMOSYNTHESIS UNILATERAL DIAGNOSTIC MAMMOGRAPHY COMPUTER-AIDED DETCJ UNI Irene Beltrán PA-C [address] [place] [address] [facility] [address] [place] [address] Referral ID Status Reason Start Date Expiration Date V isits Requested Visits Authorized [id number] Closed Auto-Generate d Referral 04/07/2024 05/07/2025 1 1 [facility] Diagnostic Procedure Only (Routine) - Closed Specialty Diagnoses / Procedures Referred By Rocio gimenez Referred To Contact [facility] Diagnoses Abnormal mammogram Procedures US BREAST LTD LEFT US BREAST UNI REAL TIME WITH IMAGE LIMITED Irene Beltrán PA-C [address] [place] [address] [facility] [address] [place] [address] Referral ID Status Reason Start Date Expiration Date V isits Requested Visits Authorized [id number] Closed Auto-Generate d Referral 04/07/2024 05/07/2025 1 1 [facility] for visit Narrative* Diagnostic Procedure Only (Routine) - Closed Specialty Diagnoses / Procedures Referred By Contac t Referred To Contact [facility] Diagnoses Abnormal mammogram Procedures LILA DIAGNOSTIC RT DIAGNOSTIC MAMMOGRAPHY COMPUTER-AIDED DETCJ UNI Loida Hester APRN.RESIDENTIAL TEAM LEADER [address] [place] [address] [facility] [address] [place] [address] Referral ID Status Reason Start Date Expiration Date V isits Requested Visits Authorized [id number] Closed Auto-Generate d Referral 04/29/2021 05/29/2022 1 1 [facility] for visit Narrative* Diagnostic Procedure Only (Routine) - Closed Specialty Diagnoses / Procedures Referred By Contac t Referred To Contact [facility] Diagnoses Encounter for screening mammogram for breast cancer Procedures LILA SCREENING W ANDREAS SCREENING DIGITAL BREAST TOMOSYNTHESIS BI SCREENING MAMMOGRAPHY BI 2-VIEW BREAST INC Gasper Prescott MD [address] [place] [address] [facility] [address] [place] [address] Referral ID Status Reason Start Date Expiration Date V isits Requested Visits Authorized [id number] Closed Auto-Generate d Referral 01/13/2024 02/11/2025 1 1 [facility] for visit Narrative* Diagnostic Procedure Only (Routine) - Closed Specialty Diagnoses / Procedures Referred By Contac t Referred To Contact [facility] Diagnoses Abnormal mammogram Procedures LILA DIAG W ANDREAS LEFT DIGITAL BREAST TOMOSYNTHESIS UNILATERAL DIAGNOSTIC MAMMOGRAPHY COMPUTER-AIDED DETCJ Irene Elizabeth PA-C [address] [place] [address] [facility] [address] [place] [address] Referral ID Status Reason Start Date Expiration Date V isits Requested Visits Authorized [id number] Closed Auto-Generate d Referral 04/07/2024 05/07/2025 1 1 [facility] Diagnostic Procedure Only (Routine) - Closed Specialty Diagnoses / Procedures Referred By Contac t Referred To Contact [facility] Diagnoses Abnormal mammogram Procedures US BREAST LTD LEFT US BREAST UNI REAL TIME WITH IMAGE LIMITED Irene Beltrán PA-C [address] [place] [address] [facility] [address] [place] [address] Referral ID Status Reason Start Date Expiration Date V isits Requested Visits Authorized [id number] Closed Auto-Generate d Referral 04/07/2024 05/07/2025 1 1 [facility] Summary Purpose Family History No Family History Records Found Relationship Condition Age at Onset Recorded Date/T alondra mother Malignant neoplasm Unknown Advance Directives No Advanced Directives Records Found Advance Directive Response Recorded Date/ Time Advance Directives No March 18, 2016 7:41am Living Will No March 23 4 2:07pm Power of Band Leader No March 23, 024 2:07pm Chief Complaint and Reason for Visit Chief Complaint Hysteroscopy, Minerv a ablation Reason for Visit Menorrhagia Additional Source Comments Source Comments (unrecognize d section and content) In the event this informatio n is protected by the Federal Confidentiality of Alcohol and Drug Abuse Patient Records regulations: The Federal rules restrict any use of the information to criminally investigate or prosecute any alcohol or drug abuse patient.[facility] the event this information is protected by the Federal Confidentiality of Alcohol and Drug Abuse Patient Records regulations: The Federal rules restrict any use of the information to criminally investigate or prosecute any alcohol or drug abuse patient.[facility] the event this information is protected by the Federal Confidentiality of Alcohol and Drug Abuse Patient Records regulations: The Federal rules restrict any use of the information to criminally investigate or prosecute any alcohol or drug abuse patient.[facility] the event this information is protected by the Federal Confidentiality of Alcohol and Drug Abuse Patient Records regulations: The Federal rules restrict any use of the information to criminally investigate or prosecute any alcohol or drug abuse patient.[facility] the event this information is protected by the Federal Confidentiality of Alcohol and Drug Abuse Patient Records regulations: The Federal rules restrict any use of the information to criminally investigate or prosecute any alcohol or drug abuse patient.[facility] the event this information is protected by the Federal Confidentiality of Alcohol and Drug Abuse Patient Records regulations: The Federal rules restrict any use of the information to criminally investigate or prosecute any alcohol or drug abuse patient.[facility] the event this information is protected by the Federal Confidentiality of Alcohol and Drug Abuse Patient Records regulations: The Federal rules restrict any use of the information to criminally investigate or prosecute any alcohol or drug abuse patient.[facility] Dublin[facility] the event this information is protected by the Federal Confidentiality of Alcohol and Drug Abuse Patient Records regulations: The Federal rules restrict any use of the information to criminally investigate or prosecute any alcohol or drug abuse patient.[facility] Dublin[facility] the event this information is protected by the Federal Confidentiality of Alcohol and Drug Abuse Patient Records regulations: The Federal rules restrict any use of the information to criminally investigate or prosecute any alcohol or drug abuse patient.[facility] Dublin[facility] the event this information is protected by the Federal Confidentiality of Alcohol and Drug Abuse Patient Records regulations: The Federal rules restrict any use of the information to criminally investigate or prosecute any alcohol or drug abuse patient.[facility] the event this information is protected by the Federal Confidentiality of Alcohol and Drug Abuse Patient Records regulations: The Federal rules restrict any use of the information to criminally investigate or prosecute any alcohol or drug abuse patient.[facility] the event this information is protected by the Federal Confidentiality of Alcohol and Drug Abuse Patient Records regulations: The Federal rules restrict any use of the information to criminally investigate or prosecute any alcohol or drug abuse patient.[facility] the event this information is protected by the Federal Confidentiality of Alcohol and Drug Abuse Patient Records regulations: The Federal rules restrict any use of the information to criminally investigate or prosecute any alcohol or drug abuse patient.[facility] the event this information is protected by the Federal Confidentiality of Alcohol and Drug Abuse Patient Records regulations: The Federal rules restrict any use of the information to criminally investigate or prosecute any alcohol or drug abuse patient.[facility] the event this information is protected by the Federal Confidentiality of Alcohol and Drug Abuse Patient Records regulations: The Federal rules restrict any use of the information to criminally investigate or prosecute any alcohol or drug abuse patient.[facility] the event this information is protected by the Federal Confidentiality of Alcohol and Drug Abuse Patient Records regulations: The Federal rules restrict any use of the information to criminally investigate or prosecute any alcohol or drug abuse patient.[facility] the event this information is protected by the Federal Confidentiality of Alcohol and Drug Abuse Patient Records regulations: The Federal rules restrict any use of the information to criminally investigate or prosecute any alcohol or drug abuse patient.[facility] Dublin[facility] the event this information is protected by the Federal Confidentiality of Alcohol and Drug Abuse Patient Records regulations: The Federal rules restrict any use of the information to criminally investigate or prosecute any alcohol or drug abuse patient.[facility] Dublin[facility] the event this information is protected by the Federal Confidentiality of Alcohol and Drug Abuse Patient Records regulations: The Federal rules restrict any use of the information to criminally investigate or prosecute any alcohol or drug abuse patient.[facility] Dublin[facility] the event this information is protected by the Federal Confidentiality of Alcohol and Drug Abuse Patient Records regulations: The Federal rules restrict any use of the information to criminally investigate or prosecute any alcohol or drug abuse patient.[facility] Care Teams (unrecognized sec tion and content) Structural Architect Relationship Specialty Start Date End Date Gasper Ramos MD [address] [place] [address] PCP - General Family Practice 11/12/20 Structural Architect Relationship Specialty Start Date End Date Gasper Ramos MD [address] [place] [address] PCP - General Family Practice 11/12/20 Structural Architect Relationship Specialty Start Date End Date Gasper Ramos MD [address] [place] [address] PCP - General Family Practice 11/12/20 Structural Architect Relationship Specialty Start Date End Date Gasper Ramos MD [address] [place] [address] PCP - General Family Practice 11/12/20 Structural Architect Relationship Specialty Start Date End Date Gasper Ramos MD [address] [place] [address] PCP - General Family Practice 11/12/20 Structural Architect Relationship Specialty Start Date End Date Gasper Ramos MD [address] [place] [address] PCP - General Family Medicine 11/12/20 Structural Architect Relationship Specialty Start Date End Date Gasper Ramos MD [address] [place] [address] PCP - General Family Medicine 11/12/20 Structural Architect Relationship Specialty Start Date End Date Gasper Ramos MD [address] [place] [address] PCP - General Family Medicine 11/12/20 Structural Architect Relationship Specialty Start Date End Date Gasper Ramos MD [address] [place] [address] PCP - General Family Medicine 11/12/20 Team Status: Active Member Role Status Dates Dr. Marcus Pearce III, MD Family Provider Active Irene BURNS, PA Primary Care Provider Active Team Status: Inactive Member Role Status Dates Dr. Winston Sanderson MD Attending Provider, Referring Provider Active Irene BURNS PA Primary Care Provider Active Structural Architect Relationship Specialty Start Date End Date Gasper Ramos MD [address] [place] [address] PCP - General Family Medicine 11/12/20 Structural Architect Relationship Specialty Start Date End Date Gasper Ramos MD [address] [place] [address] PCP - General Family Medicine 11/12/20 Sylvie Parra APRN.RESIDENTIAL TEAM LEADER [address] [place] [address] Resistor Coater Family Medicine 02/20/24 Irene Beltrán PA-C [address] [place] [address] Resistor [facility] 02/20/24 Structural Architect Relationship Specialty Start Date End Date Gasper Ramos MD [address] [place] [address] PCP - General Family Medicine 11/12/20 Sylvie Parra APRN.RESIDENTIAL TEAM LEADER [address] [place] [address] Resistor [facility] 02/20/24 Irene Beltrán PA-C [address] [place] [address] Resistor [facility] 02/20/24 Structural Architect Relationship Specialty Start Date End Date Gasper Ramos MD [address] [place] [address] PCP - General Family Medicine 11/12/20 Sylvie Parra, METAL 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 [address] [place] [address] Res[facility] 02/20/24 Irene Beltrán PA-C [address] [place] [address] Resistor Co[facility] 02/20/24 Structural Architect Relationship Specialty Start Date End Date Gasper Ramos MD [address] [place] [address] PCP - General Family Medicine 11/12/20 Sylvie Parra, METAL 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 [address] [place] [address] Resistor [facility] 02/20/24 Irene Beltrán PA-C [address] [place] [address] Resistor Co[facility] Family [facility] 02/20/24 Structural Architect Relationship Specialty Start Date End Date Gasper Ramos MD [address] [place] [address] PCP - General Family Medicine 11/12/20 Sylvie Parra, METAL 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 [address] [place] [address] Resistor [facility] 02/20/24 Irene Beltrán PA-C [address] [place] [address] Resistor Coater Family [facility] 02/20/24 Structural Architect Relationship Specialty Start Date End Date Gasper Ramos MD [address] [place] [address] PCP - General Family Medicine 11/12/20 Sylvie Parra APRN.RESIDENTIAL TEAM LEADER [address] [place] [address] Resistor [facility] 08/15/24 Irene Beltrán PA-C [address] [place] [address] Resistor Co[facility] 08/15/24 Structural Architect Relationship Specialty Start Date End Date Gasper Ramos MD [address] [place] [address] PCP - General Family Medicine 11/12/20 Sylvie Parra APRN.RESIDENTIAL TEAM LEADER [address] [place] [address] Resistor [facility] 08/15/24 Irene Beltrán PA-C [address] [place] [address] Resistor Co[facility] 08/15/24 Structural Architect Relationship Specialty Start Date End Date Gasper Ramos MD [address] [place] [address] PCP - General Family Medicine 11/12/20 Sylvie Parra APRN.RESIDENTIAL TEAM LEADER [address] [place] [address] Resistor Co[facility] 08/15/24 Irene Beltrán PA-C [address] [place] [address] Resistor Coater Family [facility] 08/15/24 Reason for Visit (unrecogniz ed section and content) Reason Comments Yearly Exam Reason Comments Results Reason Comments Physical Reason Comments Yearly Exam Reason Comments Schedule Surgery Reason Comments Results Reason Comments Sinus Problem sinus pressure, top upper teeth pain left side x 1 day Reason Comments Patient Question INFORMATION SOURCE (unrecogn ized section and content) DATE CREATED AUTHOR 03/12/2023 [facility] DATE CREATED AUTHOR [facility]S [facility]/20/2024 [facility] FOR RECORDS PERTAINING TO PATIENTS WHO ARE [...] BE BASED ON THE PRIMARY CLINICAL RECORDS. [employer] provides no warranty or guarantee of the accuracy or completeness of information in this document.
[2025-02-21] MEDS: 0.9% Saline Lock 10 ML Syringe IV (19:58)
[2025-02-22 02:45] VITALS: BP 105/67; PULSE 53; RESP 14; TEMP 36.7; O2SAT 100
--- NOTE | 2025-02-22 05:35 | RAD_ITS ---
PROCEDURE: CHEST 1 VIEW 02/22/2025 REASON FOR EXAM: LEFT PNEUMOTHORAX TECHNIQUE: Frontal view of the chest. COMPARISON: 02/21/2025 chest radiograph done at 1:35 p.m. and the 02/21/2025 CT scan of the abdomen FINDINGS: Hardware: Only the distal 1 to 2 cm of a caliber left pleural drainage catheter is in the left pleural space. This catheter has had approximately 4 cm of its length pulled out from the left pleural space. The catheter does not appear to have any sideholes and there is no soft tissue emphysema. Heart: Cardiac and mediastinal contours are stable. Lungs: There are a few strands of platelike atelectasis and/or linear fibrosis at the left lung base. There may be emphysematous changes at the mid and upper lung zones, more pronounced on the left. There are no pulmonary infiltrates. Pleura: There is a small (less than 5%) left pneumothorax. There is no right pleural abnormality. Bones: Unremarkable RAD/Chest 1 View IMPRESSION: Small left pneumothorax. Only a short distal segment of a drainage catheter is in the left pleural space. Possible emphysematous changes in the mid and upper lung zones. Reading Location: [id number]
[2025-02-22 07:28] VITALS: BP 100/70; PULSE 61; RESP 14; TEMP 36.7; O2SAT 99
--- NOTE | 2025-02-22 08:25 | RAD_ITS ---
PROCEDURE: CHEST 1 VIEW (PORTABLE) 02/22/2025 REASON FOR EXAM: LEFT PNEUMOTHORAX TECHNIQUE: Frontal view of the chest. COMPARISON: February 22, 2025. FINDINGS: Hardware: Stable appearance of the left-sided small caliber chest tube. Heart: Cardiac and mediastinal contours are stable. Lungs: Stable small left apical pneumothorax. Bones: The bones are unremarkable. RAD/Chest 1 View (Portable) IMPRESSION: Stable small thorax. Reading Location: [place] [address]
--- NOTE | 2025-02-22 08:33 | PN.SURG_ITS ---
Subjective Subjective Patient evaluated resting comfortably in bed. Patient notes she has been using her incentive spirometer. CXR this morning shows approximately 4 cm of the tube was pulled out and residual 5% pneumothorax noted. Patient denies any shortness of breath. Objective Data Objective Data Vital Signs: Vital Signs Temp Pulse Resp BP Pulse Ox O2 Del Method 98.0 F 61 14 100/70 99 Room Air 02/22/25 07:28 02/22/25 07:28 02/22/25 07:28 02/22/25 07:28 02/22/25 07:28 02/22/25 08:01 Oxygen Delivery Method Room Air Weight: 124 lb 1 oz Body Mass Index (BMI) 24.2 Lab / Micro Data 02/21/25 10:02/21/25 10:25 Labs: Laboratory Results - last 24 hr 02/21/25 10:25: WBC 10.5, RBC 4.28, Hgb 13.2, Hct 39.5, MCV 92.3, MCH 30.8, MCHC 33.4, RDW Std Deviation 41.9, RDW Coeff of Mellisa 12.4, Plt Count 223, MPV 9.7, Immature Gran % (Auto) 0.400, Neut % (Auto) 83.9 H, Lymph % (Auto) 7.9 L, [place] % (Auto) 5.6, Eos % (Auto) 1.9, Baso % (Auto) 0.3, Absolute Neuts (auto) 8.9 H, Absolute Lymphs (auto) 0.83, Nucleated RBC % 0, Sodium 140, Potassium 4.2, Chloride 105, Carbon Dioxide 24.8, Anion Gap 11, BUN 18, Creatinine 0.87, Estim Creat Clear Calc 56.80, Est GFR (MDRD) Non-Af 82, BUN/Creatinine Ratio 20.7 H, G lucose 110 H, Calcium 9.4, Total Bilirubin 0.38, AST 27, ALT 22, Alkaline Phosphatase 65, Total Protein 7.4, Albumin 4.5, Globulin 2.9, Albumin/Globulin Ratio 1.6 Radiography Diagnostic Testing: Radiology Impression Chest CT 02/21/25 09:43 IMPRESSION: [id number] left pneumothorax. Dependent atelectasis versus tiny contusions in the periphery of the left lower lobe, dependent portion. No obvious rib fracture. Red Alert: Left pneumothorax The critical findings in the findings and impression above were relayed directly by me by telephone to Jb Mckeon on 02/21/2025 at 10:26 am with readback verification. Reading Location: [id number] Hand X-Ray 02/21/25 10:00 IMPRESSION: No acute osseous abnormality. Reading Location: [facility] Abdomen/Pelvis CT 02/21/25 10:08 IMPRESSION: No acute process of the abdomen or pelvis. Moderate left pneumothorax.. No acute osseous abnormality. No displaced rib fracture. Reading Location: [id number] Brain CT 02/21/25 10:08 IMPRESSION: CT of the head was performed following a CT of the chest with contrast. Enhanced exam limits evaluation of sub dural and subarachnoid hemorrhage. No acute intracranial abnormality. Reading Location: [id number] Cervical Spine CT 02/21/25 10:08 IMPRESSION: No acute fracture of the cervical spine. Moderate degenerative disc disease at C5-6. Reversal of the normal cervical lordosis likely secondary to muscle spasm or positioning. Left pneumothorax. Reading Location: [id number] Chest X-Ray 02/21/25 13:30 IMPRESSION: Unchanged minimal left basilar atelectatic pulmonary changes. Unchanged minimal residual left apical pneumothorax. Left pleural drainage catheter remains in good position with its tip in the base of the left pleural cavity. Reading Location: [facility] Chest X-Ray 02/22/25 05:35 IMPRESSION: Small left pneumothorax. Only a short distal segment of a drainage catheter is in the left pleural space. Possible emphysematous changes in the mid and upper lung zones. Reading Location: [id number] Physical Exam Chest Chest Narrative: Left chest- chest tube has been pulled out approximately 4 cm. All dressing was removed and chest tube was advanced back into the chets and secured with 3-[address] Dasilva. Chest tube was redressed with gauze and medipore tape. Assessment & Plan Assessment/Plan (1) Pneumothorax on left: PLAN: I am following this patient in conjunction with Dr. Dasilva. He has independently evaluated this patient. Chest tube advanced CXR was ordered again for placement following repositioning of the chest tube We will continue to monitor this patient Charges/Coding Visit Charges Inpatient E&M: 40240 Subs Hosp L2
[2025-02-22] MEDS: 0.9% Saline Lock 10 ML Syringe IV ×2 (10:10→17:51)
[2025-02-22 14:00] VITALS: BP 131/80; PULSE 63; RESP 16; TEMP 36.7; O2SAT 99
[2025-02-22 20:30] VITALS: BP 122/81; PULSE 70; RESP 16; TEMP 37; O2SAT 100
[2025-02-22 22:00] VITALS: RESP 16
[2025-02-23 02:00] VITALS: BP 108/70; PULSE 72; RESP 16; TEMP 36.8; O2SAT 97
--- NOTE | 2025-02-23 05:00 | RAD_ITS ---
PROCEDURE: CHEST 1 VIEW (PORTABLE) 02/23/2025 REASON FOR EXAM: LEFT PNEUMOTHORAX TECHNIQUE: Frontal view of the chest. COMPARISON: 02/22/2025 FINDINGS: Simple appearing small left apical pneumothorax. Left lower lung zone chest tube is again noted. Stable appearing bilateral lower lung zones atelectasis. Stable subtle midline shift to the right side. Normal cardiac size. No acute ribs abnormalities. RAD/Chest 1 View (Portable) IMPRESSION: Simple appearing small left apical pneumothorax. Left lower lung zone chest tube is again noted. Stable appearing bilateral lower lung zones atelectasis Reading [facility]
[2025-02-23 08:33] VITALS: BP 112/45; PULSE 56; RESP 56; TEMP 36.5; O2SAT 97
--- NOTE | 2025-02-23 08:50 | PCM.PN.SRG ---
Subjective Subjective Patient evaluated this morning. She notes pain at the chest tube site. She notes a few intermittent bubbling over night. She denies any shortness of breath. Objective Data Objective Data Vital Signs: Vital Signs Temp Pulse Resp BP Pulse Ox O2 Del Method 97.7 F L 56 L 56 H 112/45 L 97 Room Air 02/23/25 08:33 02/23/25 08:33 02/23/25 08:33 02/23/25 08:33 02/23/25 08:33 02/23/25 08:45 Oxygen Delivery Method Room Air Weight: 124 lb 1 oz Body Mass Index (BMI) 24.2 Lab / Micro Data 02/21/25 10:25 02/21/25 10:25 Radiography Diagnostic Testing: Radiology Impression Chest X-Ray 02/22/25 08:25 IMPRESSION: Stable small thorax. Reading Location: [facility] Chest X-Ray 02/23/25 05:00 IMPRESSION: Simple appearing small left apical pneumothorax. Left lower lung zone chest tube is again noted. Stable appearing bilateral lower lung zones atelectasis Reading Location: [place] [id number] Physical Exam Chest Chest Narrative: Left chest- chest tube intact and secured to the left lateral chest wall. No leak noted. Chest tube was taken off wall suction. Assessment & Plan Assessment/Plan (1) Pneumothorax on left: PLAN: I am following this patient in conjunction with Dr. Dasilva. He has independently evaluated this patient. Chest tube taken off wall suction CXR ordered for 6 hours off wall suction If CXR does not show an increased pneumo, plan to remove chest tube Once chest tube is removed, reorder CXR for 4 hours after removal If CXR shows increase in pneumo, plan to hook back up to wall suction at 20 cm We will continue to monitor this patient Charges/Coding Visit Charges Inpatient E&M: 77312 Subs Hosp L2
[2025-02-23 11:15] VITALS: BP 136/85; PULSE 63; RESP 16; TEMP 36.4; O2SAT 97
--- NOTE | 2025-02-23 13:15 | RAD_ITS ---
PROCEDURE: CHEST 1 VIEW (PORTABLE) 02/23/2025 REASON FOR EXAM: LEFT PNEUMOTHORAX TECHNIQUE: Frontal view of the chest. COMPARISON: Earlier on the same day. FINDINGS: Since the previous study, the small gauge left thoracostomy tube has been slightly advanced further into the left hemithorax. No sizable pneumothorax is clearly visualized on this image. Mild scarring is noted in the left mid to lower lung at the tip of the thoracostomy tube. The lungs are otherwise clear. The cardiomediastinal silhouette appears unremarkable. No acute osseous abnormality. RAD/Chest 1 View (Portable) IMPRESSION: As above. Reading Location: [id number]
[2025-02-23 15:32] VITALS: BP 117/89; PULSE 62; RESP 16; TEMP 36.6; O2SAT 100
--- NOTE | 2025-02-23 16:28 | CASEMGMT ---
Dx:L pneumothorax LACE:1 6-Clicks:24 Medical record reviewed and patient evaluated for identification of discharge planning needs. Based on this review, at this time criteria are not present to indicate a need for discharge planning. Will remain available to assist with discharge planning needs as identified or requested. Pt on RA and denies any homegoing needs. Pt up indep in room and does not use AD. Heather Hicks provided consents and completed FROI that pt gave to her. RN CM into pt room, pt states she is to return these documents to her employer. Copy of FROI made and placed in pt chart. TC to [facility], spoke with Jyotsna who requests that form be faxed to her at [phone]. Faxed at this time.
--- NOTE | 2025-02-23 20:15 | RAD_ITS ---
PROCEDURE: CHEST 1 VIEW (PORTABLE) 02/23/2025 REASON FOR EXAM: F/U CHEST TUBE REMOVAL TECHNIQUE: Frontal view of the chest. COMPARISON: Earlier same day 02/23/2025 FINDINGS: Interval removal of the left thoracostomy tube. Increased size/recurrence of a small-moderate left pneumothorax. No focal consolidation or lobar collapse. No sizable pleural effusion. Cardiac silhouette is normal in size. Left chest wall subcutaneous emphysema. RAD/Chest 1 View (Portable) IMPRESSION: Interval left thoracostomy tube removal, with increased sized/recurrence of a s mall-moderate sized left pneumothorax. Follow-up recommended. Reading Location: [id number]
--- NOTE | 2025-02-23 21:00 | NURSING ---
DR KENT READ THE PTS CXRAY, STILL HAS A L PNEUMOTHORAX NEW CHEST TUBE PLACED AT THE BEDSIDE, PT PAINFUL AT THE INSERTION SITE, DILAUDID GIVEN, ENCOURAGED TO COUGH AND USE THE I.S.
[2025-02-23 21:30] VITALS: BP 106/75; PULSE 70; RESP 16; TEMP 36.6; O2SAT 97
--- NOTE | 2025-02-23 21:48 | OP.PCM_ITS ---
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 The insertion site was selected by identifying the intercostal space in the midaxillary line 1 interspace just superior to the inframammary crease. The chest wall was prepped with chlorhexidine then locally anesthetized with 10mL 1% Xylocaine. A scalpel was used to incise the skin with an approximately 1 cm transverse incision. Then the percutaneous chest tube with the finder needle was dilated through the tube was attached to a syringe with 2 mL of injectable saline. The needle tip and overlapping chest tube were slowly introduced through the intercostal space while back aspirating on the connected syringe. As soon as air was detected within the saline of the syringe forward progress was halted and the chest tube was threaded into the pleural cavity over the needle which was then withdrawn completely. The chest tube was then connected to the Pleur-evac box under suction. There was immediate egress of air through the waterseal chamber but the air leak was not continuous. The chest tube was secured at the skin using the provided #1 silk. A dressing of split gauze and tape was then applied around this tube and a way to prevent pulling directly of the tube through a tape mesentery. Stat chest x-ray was obtained to confirm positioning. Surgical Findings: ? Crepitus over left chest wall with bruising and edema ? Pleur-evac box showing intermittent airleak Complications Complications: No
--- NOTE | 2025-02-23 21:50 | RAD_ITS ---
PROCEDURE: CHEST 1 VIEW (PORTABLE) 02/23/2025 REASON FOR EXAM: F/U PTX AND CT PLACEMENT TECHNIQUE: Frontal view of the chest. COMPARISON: 02/23/2025 at 8:14 p.m. FINDINGS: LINES: Interval placement of a left chest tube with the tip over the mid hemithorax. LUNGS AND PLEURA: No residual left pneumothorax seen. Strandy left inferior lung opacities, likely atelectasis. No pleural effusion. HEART AND MEDIASTINUM: The heart size and mediastinal contours are normal. BONES: No acute osseous abnormality. OTHER: Persistent left chest wall subcutaneous emphysema. RAD/Chest 1 View (Portable) IMPRESSION: Interval resolution of left pneumothorax status post chest tube placement. Reading Location: [id number]
[2025-02-23] MEDS: HYDROmorphone 0.5 MG/0.5 ML SYRINGE IV (21:58)
[2025-02-23 22:00] VITALS: RESP 16
[2025-02-24 03:00] VITALS: BP 112/69; PULSE 72; RESP 16; TEMP 36.7; O2SAT 98
--- NOTE | 2025-02-24 08:02 | PCM.PN.SRG ---
Subjective Subjective Patient seen and examined during AM rounds. She is found resting in bed. She states that she has a bit of a stiff neck because she tried to very much limit her movements so was not to dislodge her chest tube that required replacement yesterday. She denies any shortness of breath but remarks that she still feels a tightness at the insertion site and some soreness. Objective Data Objective Data Vital Signs: Vital Signs Temp Pulse Resp BP Pulse Ox O2 Del Method 98.1 F 72 16 112/69 98 Room Air 02/24/25 03:00 02/24/25 03:00 02/24/25 03:00 02/24/25 03:00 02/24/25 03:00 02/24/25 03:00 Oxygen Delivery Method Room Air Weight: 124 lb 1 oz Body Mass Index (BMI) 24.2 Intake & Output: Intake and Output for Last 24 Hours 02/22/25 02/23/25 02/24/25 23:59 23:59 23:59 Intake Total 1050 / 1050 Balance 1050 / 1050 Lab / Micro Data 02/21/25 10:25 02/21/25 10:25 Radiography Diagnostic Testing: Radiology Impression Chest X-Ray 02/23/25 13:15 IMPRESSION: As above. Reading Location: [id number] Chest X-Ray 02/23/25 20:15 IMPRESSION: Interval left thoracostomy tube removal, with increased sized/recurrence of a small-moderate sized left pneumothorax. Follow-up recommended. Reading Location: [id number] Chest X-Ray 02/23/25 21:50 IMPRESSION: Interval resolution of left pneumothorax status post chest tube placement. Reading Location: [id number] Physical Exam Const oriented x3 and no apparent distress Resp normal respiratory effort Resp Narrative: Chest tube is intact without kinking. There is a scant amount of serous drainage in the chest tube drainage tubing. Bellow's are up at -20 cm water suction. There is no airleak noted in the waterseal chamber when patient is asked to cough. Assessment & Plan Assessment/Plan (1) Pneumothorax on left: PLAN: 49-year-old female admitted for left pneumothorax. Unfortunately recurred following chest tube removal yesterday requiring replacement overnight. Presently stable. Chest tube taken off wall suction to waterseal CXR ordered for 6 hours off wall suction Patient okay to ambulate about the hallways as long as care is taken to avoid snagging of the tubing. Please notify surgery of any clinical changes immediately. Haroon Dasilva MD General Surgery Endocrine Surgery Pager: [facility] [address] [place] [address], [address] [place] [address] Office: [phone] Charges/Coding Visit Charges Inpatient E&M: 86354 Subs Hosp L2
[2025-02-24 08:18] VITALS: BP 121/74; PULSE 70; RESP 16; TEMP 36.6; O2SAT 100
--- NOTE | 2025-02-24 12:10 | RAD_ITS ---
PROCEDURE: CHEST 1 VIEW (PORTABLE) 02/24/2025 REASON FOR EXAM: F/U L PTX AFTER WS TECHNIQUE: Frontal view of the chest. COMPARISON: AP portable chest 02/23/2025. RAD/Chest 1 View (Portable) IMPRESSION: No significant pneumothorax is noted. Left chest tube remains in place, with associated subcutaneous emphysema again noted. No pleural effusion is noted. Lungs otherwise appear clear. The cardiomediastinal silhouette is within the normal range. Reading Location: [id number]
[2025-02-24] MEDS: 0.9% Saline Lock 10 ML Syringe IV (12:17)
[2025-02-24 14:18] VITALS: BP 121/90; PULSE 67; RESP 16; TEMP 36.9; O2SAT 100
[2025-02-24 20:00] VITALS: BP 138/78; PULSE 67; RESP 15; TEMP 36.6; O2SAT 99
[2025-02-24 21:00] VITALS: O2SAT 99
[2025-02-25 03:00] VITALS: BP 105/72; PULSE 60; RESP 15; TEMP 36.8; O2SAT 98; O2SAT 99
--- NOTE | 2025-02-25 05:20 | RAD_ITS ---
PROCEDURE: CHEST 1 VIEW (PORTABLE) 02/25/2025 REASON FOR EXAM: F/U L PTX AND CT TECHNIQUE: Frontal view of the chest. COMPARISON: February 24, 2025 FINDINGS: Single frontal view of the chest demonstrates adequately aerated lungs bilaterally without pleural effusion, pneumothorax, or focal airspace disease. Left chest tube remains in place with associated subcutaneous emphysema. Cardiomediastinal silhouette is within normal limits for age. Osseous structures are stable. RAD/Chest 1 View (Portable) IMPRESSION: Stable left-sided chest tube without pneumothorax. Persistent subcutaneous emp hysema along the left lateral chest wall. Reading Location: [id number]
[2025-02-25 08:57] VITALS: BP 109/73; PULSE 72; RESP 16; TEMP 37; O2SAT 99
--- NOTE | 2025-02-25 12:34 | PCM.PN.SRG ---
Subjective Subjective Patient seen and examined sitting bedside. She is conversing with her family. She states that she feels well but she is reluctant to state this as she felt well before when her pneumothorax had reaccumulated. She does declare she has seen no evidence of a air leak in the form of any bubbles in her Pleur-evac system. She denies any shortness of breath. She continues to remark of some soreness of her chest wall. Objective Data Objective Data Vital Signs: Vital Signs Temp Pulse Resp BP Pulse Ox O2 Del Method 98.6 F 72 16 109/73 99 Room Air 02/25/25 08:57 02/25/25 08:57 02/25/25 08:57 02/25/25 08:57 02/25/25 08:57 02/25/25 08:58 Oxygen Delivery Method Room Air Weight: 124 lb 1.924 oz Body Mass Index (BMI) 24.2 Intake & Output: Intake and Output for Last 24 Hours 02/23/25 02/24/25 02/25/25 23:59 23:59 23:59 Intake Total 1050 / 1050 Balance 1050 / 1050 Lab / Micro Data 02/21/25 10:25 02/21/25 10:25 Radiography Diagnostic Testing: Radiology Impression Chest X-Ray 02/24/25 12:10 IMPRESSION: No significant pneumothorax is noted. Left chest tube remains in place, with associated subcutaneous emphysema again noted. No pleural effusion is noted. Lungs otherwise appear clear. The cardiomediastinal silhouette is within the normal range. Reading Location: [id number] Chest X-Ray 02/25/25 05:20 IMPRESSION: Stable left-sided chest tube without pneumothorax. Persistent subcutaneous emphysema along the left lateral chest wall. Reading Location: [facility] Physical Exam Const oriented x3 and no apparent distress Resp normal respiratory effort Resp Narrative: Crepitus is less detectable. Chest tube dressing is stable. There is no kinking of the tubing. There is some scant serosanguineous drainage in the tubing. I am unable to elicit any evidence of bubbling in the waterseal chamber when asking patient to cough and use her incentive spirometer. Assessment & Plan Assessment/Plan (1) Pneumothorax on left: PLAN: 49-year-old female admitted for left pneumothorax. Patient did well with chest tube to waterseal for 24 hours. A.m. chest x-ray showing no pneumothorax. Stable appearance to subcutaneous emphysema. Patient shows no evidence of airleak on waterseal chamber this morning with coughing. In the name of trying to minimize her risk for pneumothorax recurrence/missing a small airleak I will clamp her chest tube now and obtain a follow-up chest x-ray in 4 hours. Chest tube to clamp CXR ordered for 4 hours Patient okay to ambulate about the hallways but please watch for any catching of the clamp. Please notify surgery of any clinical changes immediately. Haroon Dasilva MD General Surgery Endocrine Surgery Pager: [facility] [address] [place] [address], [address] [place] [id number] Office: [phone] Charges/Coding Visit Charges Inpatient E&M: 37302 Subs Hosp L2
[2025-02-25 16:00] VITALS: BP 123/83; PULSE 60; RESP 16; TEMP 36.6; O2SAT 100
--- NOTE | 2025-02-25 16:00 | RAD_ITS ---
PROCEDURE: CHEST 1 VIEW (PORTABLE) 02/25/2025 REASON FOR EXAM: F/U L PNEUMOTHORAX TECHNIQUE: Frontal view of the chest. COMPARISON: Earlier the same day and 1 day prior. FINDINGS: Hardware: Small caliber chest tube on the left is unchanged. Heart: The heart size is normal. Lungs: Clear. No pneumothorax or pleural effusion seen. Bones: The bones are unremarkable. RAD/Chest 1 View (Portable) IMPRESSION: Left chest tube. No pneumothorax seen. Reading Location: [id number]
[2025-02-25 20:00] VITALS: BP 135/88; PULSE 80; RESP 16; TEMP 36.7; O2SAT 100
--- NOTE | 2025-02-25 21:00 | RAD_ITS ---
PROCEDURE: CHEST 1 VIEW (PORTABLE) 02/25/2025 REASON FOR EXAM: F/U L PNEUMOTHORAX TECHNIQUE: Frontal view of the chest. COMPARISON: Earlier today's exam. FINDINGS: Hardware and support lines: Interval removal left-sided chest tube. Heart: Negative. Lungs: Negative for infiltrates, or pulmonary edema. Pleura: No pleural thickening. No pleural effusion. Negative for pneumothorax. Mediastinum and aorta: Negative for hilar adenopathy. Normal thoracic aorta. Bones: Age-appropriate degenerative changes of the spine. Other: Mild left subcutaneous emphysema unchanged. Remainder of the exam negative. RAD/Chest 1 View (Portable) IMPRESSION: Removal of small bore left-sided chest tube without pneumothorax. Reading Location: [id number]
[2025-02-26 04:00] VITALS: BP 112/79; PULSE 70; RESP 16; TEMP 36.9; O2SAT 100
--- NOTE | 2025-02-26 05:10 | RAD_ITS ---
PROCEDURE: CHEST 1 VIEW (PORTABLE) 02/26/2025 REASON FOR EXAM: F/U L PTX AND SUBQ AIR TECHNIQUE: Frontal view of the chest. COMPARISON: 02/25/2025 FINDINGS: Hardware: None. Heart: Cardiac and mediastinal contours are stable. Lungs: No significant change in the appearance of the lungs. Bones: The bones are unremarkable. RAD/Chest 1 View (Portable) IMPRESSION: No Acute Findings. Reading Location: [facility]
--- NOTE | 2025-02-26 08:20 | PCM.DC ---
Discharge Instructions DC O2, CPAP, BIPAP needs Home O2 Discharge instructions: No Dressing / Incision Discharge Activity: May Drive and May Not Shower (while chest tube dressing remains) Lifting Restrictions: No lifting greater than 15 pounds for 2 weeks Dressing / Incision Call your doctor if your incision/area has: Continuous Slow Oozing and Increased Pain/ Swelling Call your doctor if you observe: Shortness of breath and Uncontrolled pain Remove Dressing in: 1 day Follow Up Care Please Follow Up With: Haroon Dasilva MD When: 1-2 days Test Results: Test results from this visit will be discussed in further detail at your follow-up appointment, if applicable. Discharge Plan Admission Admit Date/Time: 02/22/25 13:14 Primary Reason for Your Visit: L traumatic pneumothorax Attending Provider: Haroon Dasilva Primary Care Provider: Irene Beltrán Instructions Additional Instructions / Restrictions: ? Please continue to work with incentive spirometer ? Please obtain chest x-ray, if possible, prior to clinic follow-up Discharge Orders/Prescriptions Prescriptions: Continued omega-3 fatty acids [Fish Oil Concentrate] 1,000 mg capsule 1,000 mg PO DAILY biotin 5,000 mcg tablet,disintegrating 10,000 mcg PO DAILY diphenhydramine HCl [Benadryl] 25 mg capsule 25 mg PO QHS ibuprofen [IBU-200] 200 mg tablet 600 mg PO Q8H PRN (Reason: fever or pain) Igaq-Ojwr-Sbhuq (ip-IO-avqius) 400-2,000 mcg tablet 2 tab PO DAILY rosuvastatin [Crestor] 5 mg tablet 5 mg PO QHS Other Ambulatory Orders: Chest 1 View (Routine) Timeframe: 4 Days Facility: [facility] - Location: [facility] Ordered By: Heather BURNS Referrals / Follow Up: Irene Beltrán PA [Primary Care Provider, Medical] Disposition Disposition (needs filled in before D/C Order can be placed): Home, Self Care
--- NOTE | 2025-02-26 08:26 | DS.PCM_ITS ---
Providers Date of Admission: 02/22/25 Primary Care Physician: GRANT Higuera Reason For Visit: LEFT PNEUMOTHORAX Diagnosis Discharge Diagnosis (1) Pneumothorax on left: Status: Acute Code(s): J93.9 - Pneumothorax, unspecified Plan: 49-year-old female admitted for left pneumothorax. Patient did well with chest tube to waterseal for 24 hours. A.m. chest x-ray showing no pneumothorax. Stable appearance to subcutaneous emphysema. Patient shows no evidence of airleak on waterseal chamber this morning with coughing. In the name of trying to minimize her risk for pneumothorax recurrence/missing a small airleak I will clamp her chest tube now and obtain a follow-up chest x-ray in 4 hours. Chest tube to clamp CXR ordered for 4 hours Patient okay to ambulate about the hallways but please watch for any catching of the clamp. Please notify surgery of any clinical changes immediately. Haroon Dasilva MD General Surgery Endocrine Surgery Pager: [facility] [address] [place] [address], [facility], [address] [place] [id number] Office: [phone] Medications at Discharge Home Medications biotin 5,000 mcg disintegrating tablet 10,000 mcg PO DAILY 04/02/20 omega-3 fatty acids 1,000 mg capsule (Fish Oil Concentrate) 1,000 mg PO DAILY 04/02/20 diphenhydramine HCl 25 mg capsule (Benadryl) 25 mg PO QHS 03/23/23 ibuprofen 200 mg tablet (IBU-200) 600 mg PO Q8H PRN fever or pain 02/21/25 multivitamin-folic acid 400 mcg-biotin 2,000 mcg tablet (Vfsv-Tzlf-Eitee (fjqnxuet-jasen-[id number])) 2 tab PO DAILY 02/21/25 rosuvastatin 5 mg tablet (Crestor) 5 mg PO QHS cholesterol 02/21/25 Hospital Course Procedures - (Percutaneous thoracostomy x 2) Summary of Care Provided Hospital Course: Patient is a 49-year-old female admitted [facility] via the emergency department after presenting for evaluation following a fall from a height and resultant left pneumothorax. Percutaneous thoracostomy was placed by emergency medicine and the tube was initially placed to suction at -20 cm water. Patient experienced reexpansion of her lung but there was an intermittent airleak. Hospital day 2 patient had persistent airleak but appeared to vent [facility] She expressed a strong desire to be discharged home and so I attempted to limit her treatment course but do so in a thoughtful manner. On 02/23/2025 she had shown minimal signs of bubbling in the waterseal chamber and this always with strange movements (eg. bending her knees) and never with coughing. This had suggested to me that there was a leak in the connection in the tubing. However, out of the abundance of caution she was monitored inpatient following chest tube removal for 4 hours and a chest x-ray was repeated. This study showed clear evidence of persistent air leak with recurrence of pneumothorax and development of some subcutaneous emphysema. On observing this on her chest x-ray I presented bedside to find her clinically stable and unaware of this change. However, given the concern for further progression I recommended replacement of her chest tube. She provided her consent and the procedure was undertaken at bedside in uncomplicated fashion with again full resolution of the pneumothorax. I proceeded with a more conservative course following this chest tube replacement given our prior experience and patient was returned to [facility] the following day but held at that threshold for a full 24 hours. When her chest x-ray showed no pneumothorax nor progression of her subcutaneous emphysema I then clamped her chest tube as a means of mimicking its discontinuation and repeated her chest x-ray 4 hours later. Once again, there was no evidence of pneumothorax instability with her subcutaneous emphysema so her chest tube was discontinued at bedside after placing it to suction. We discussed possible discharge to home if her chest x- ray was stable, however, we jointly decided to defer discharge to the following day given the late hour that the chest x-ray would be reported in the deteriorated weather conditions. The morning of 02/26/2025 patient had reassuring chest x-ray with no acute findings and some improvement even in her subcutaneous emphysema. She is thus granted discharged home with expectation for outpatient follow-up and repeat chest x-ray. She was also advised to continue use of an incentive spirometer to minimize risk for volume loss. Physical Exam Const alert, oriented x3 and no apparent distress Resp normal respiratory effort Resp Narrative: Bruising of chest wall from initial trauma, intact chest tube removal dressing site. Persistent subcutaneous emphysema stable in distribution Weight / BMI Weight Weight: 124 lb 1.924 oz Body Mass Index (BMI) 24.2 ABG / Lab / Microbiology Data 02/21/25 10:25 02/21/25 10:25 Radiography Diagnostic Testing: Radiology Impression Chest X-Ray 02/25/25 16:00 IMPRESSION: Left chest tube. No pneumothorax seen. Reading Location: [id number] Chest X-Ray 02/25/25 21:00 IMPRESSION: Removal of small bore left-sided chest tube without pneumothorax. Reading Location: [id number] Chest X-Ray 02/26/25 05:10 IMPRESSION: No Acute Findings. Reading Location: [facility] D/C Instructions Call your doctor if your incision/area has: Continuous Slow Oozing and Increased Pain/ Swelling Call your doctor if you observe: Shortness of breath and Uncontrolled pain DC O2, CPAP, BIPAP Needs Home O2 Discharge instructions: No Please Follow Up With: Haroon Dasilva MD When: 1-2 days Meaningful Use Info Meaningful Use Meaningful Use Diagnoses (Choose all that apply): None applicable Discharge Plan Admission Admit Date/Time: 02/22/25 13:14 Primary Reason for Your Visit: L traumatic pneumothorax Attending Provider: Haroon Dasilva Primary Care Provider: Irene Beltrán Instructions Additional Instructions / Restrictions: ? Please continue to work with incentive spirometer ? Please obtain chest x-ray, if possible, prior to clinic follow-up Discharge Orders/Prescriptions Prescriptions: Continued omega-3 fatty acids [Fish Oil Concentrate] 1,000 mg capsule 1,000 mg PO DAILY biotin 5,000 mcg tablet,disintegrating 10,000 mcg PO DAILY diphenhydramine HCl [Benadryl] 25 mg capsule 25 mg PO QHS ibuprofen [IBU-200] 200 mg tablet 600 mg PO Q8H PRN (Reason: fever or pain) Smrw-Meiy-Rmagp (sm-CY-digwzl) 400-2,000 mcg tablet 2 tab PO DAILY rosuvastatin [Crestor] 5 mg tablet 5 mg PO QHS Referrals / Follow Up: Irene Beltrán PA [Primary Care Provider, Medical] Disposition Disposition (needs filled in before D/C Order can be placed): Home, Self Care Charges/Coding Visit Charges Inpatient E&M: [id number] Disch Hosp
[2025-02-26 08:47] VITALS: BP 123/79; PULSE 73; RESP 16; TEMP 36.8; O2SAT 100
== END 2025-02-26 09:05 | disposition home or self-care (01) | DRG 201 ==
LOC: ED 12:45 → MS3 15:00
PROVIDERS: Admitting Provider Surgery; Emergency Provider Emergency Medicine; PCP Physician Assistant; Visit Provider Surgery
DX: S27.0XXA Traumatic pneumothorax, initial encounter (principal); S20.20XA Contusion of thorax, unspecified, initial encounter; T79.7XXA Traumatic subcutaneous emphysema, initial encounter; W11.XXXA Fall on and from ladder, initial encounter; Z79.899 Other long term (current) drug therapy
CPT/HCPCS: 32551; 70450; 71045; 71260; 72125; 73130; 74176; 80053; 85025; 94668; 99283; Q9967; A4216; J2405

== ENCOUNTER → 2025-02-28 | Outpatient (CLI) | payer OTHER, SELFPAY ==
--- NOTE | 2025-02-28 09:05 | RAD_ITS ---
PROCEDURE: CHEST PA AND LATERAL 02/28/2025 REASON FOR EXAM: F/U L PTX TECHNIQUE: Procedure Code: RADCXR Modality: DX Procedure: CHEST PA AND LATERAL COMPARISON: February 26, 2025 FINDINGS: Heart size and mediastinal configuration are within normal limits. There is no focal infiltrate or consolidation. There is no pneumothorax or effusion. There is no acute bony abnormality. There is no visible atherosclerosis. RAD/Chest PA and Lateral IMPRESSION: No acute process is identified in the chest. Reading Location: [facility]
== END | disposition home or self-care (01) ==
LOC: RAD 09:01
PROVIDERS: PCP Physician Assistant; Referring Provider Surgery; Visit Provider Surgery
DX: J93.9 Pneumothorax, unspecified (principal)
CPT/HCPCS: 71046